=== PATIENT | female | born 1960 | race Caucasian/White ===

== ENCOUNTER → 2017-09-13 11:20 | Outpatient (CLI) | payer OTHER, SELFPAY ==
[2017-09-13 13:51] LABS: Calcium,Total 8.9 mg/dL (8.5-10.1)
[2017-09-14 12:22] LABS: Vitamin D,25 Hydroxy 23.8 ng/mL (29.95-100.01)
== END ==
PROVIDERS: Visit Provider Obstetrics & Gynecology
DX: M85.80 Other specified disorders of bone density and structure, unspecified site (principal)
CPT/HCPCS: 36415; 82306; 82310

== ENCOUNTER → 2017-09-14 09:29 | Outpatient (CLI) | payer OTHER, SELFPAY ==
--- NOTE | 2017-09-14 09:40 | RAD_ITS ---
STUDY: X-RAY - LUMBAR SPINE REASON FOR EXAM: Female, 57 years old. Low back pain. Left lower extremity pain. TECHNIQUE: 5 view(s) of the lumbar spine were obtained including oblique views. COMPARISON: None FINDINGS: Normal lumbar lordosis. There is no substantial scoliosis. There is a normal alignment of the vertebrae. Normal vertebral bodies and endplates. Normal disc space heights. The soft tissue structures are unremarkable. RAD/L/S Spine Min 4 Views IMPRESSION: Normal x-ray examination of the lumbar spine. Electronically Signed: Angelo Peacock MD at 15:40 EDT Tel [phone], Service support ,
== END ==
PROVIDERS: Family Provider Family Medicine; PCP Family Medicine; Visit Provider Family Medicine
DX: M54.9 Dorsalgia, unspecified (principal)
CPT/HCPCS: 72110

== ENCOUNTER → 2017-10-08 09:58 | Outpatient (CLI) | payer OTHER, SELFPAY ==
[2017-10-08 12:27] LABS: Vitamin D,25 Hydroxy 24.5 ng/mL (29.95-100.01)
[2017-10-08 12:31] LABS: Anion Gap 7 (5-15); BUN 18 mg/dL (7-18); BUN/Creat Ratio 27.4 RATIO (10-20); Calcium,Total 8.5 mg/dL (8.5-10.1); Chloride 104 mmol/L (98-107); Cholesterol 180 mg/dL (200); Creatinine, Serum 0.66 mg/dL (0.55-1.02); EST Glomerular Filtration Rate 98 mL/min (>60); Est Glom Filt Rate - Afr Amer 119 mL/min (>60); Glucose 95 mg/dL (74-106); High Density Lipoprotein 83 mg/dL; Potassium 3.9 mmol/L (3.5-5.1); Sodium Level 139 mmol/L (136-145); Thyroid Stim Hormone (TSH) 1.04 uIU/mL (0.358-3.74); Triglycerides 62 mg/dL; Very Low Density Lipoprotein 12 mg/dL (5-40)
== END ==
PROVIDERS: Family Provider Family Medicine; PCP Family Medicine; Visit Provider Family Medicine
DX: Z00.00 Encounter for general adult medical examination without abnormal findings (principal)
CPT/HCPCS: 36415; 80048; 80061; 82306; 84443

== ENCOUNTER → 2018-03-22 09:07 | Outpatient (CLI) | payer OTHER, SELFPAY ==
[2018-03-22 10:14] LABS: Absolute Lymphocyte Count 1.59 X10^3/ul (0.83-4.51); Absolute Neutrophil Count 2.5 X10^3/uL (2.0-7.7); Basophil# 0.02 X10^3/uL; Basophil% 0.4 % (0-1); Eosinophil# 0.12 X10^3/uL; Eosinophils% 2.5 % (0-5); Hematocrit 42.3 % (37-47); Lymphocyte # 1.59 X10^3/ul (4.0); Lymphocyte % 33.8 % (19-41); Mean Corp Hgb Conc 33.1 g/gl (32-36); Mean Corpuscular Hgb 33.4 pg (27.0-32.0); Mean Platelet Vol. 9.9 fl (6.2-12.0); Monocyte# 0.45 X10^3/uL; Monocyte% 9.6 % (0-10); Neutrophil # 2.52 X10^3/uL (2.7-7.7); Neutrophil % 53.5 % (47-70); POSITIVE COUNT NO; POSITIVE DIFFERENTIAL NO; POSITIVE MORPHOLOGY NO; Platelet Count 245 K/mm3 (150-450); RBC Distribution Width CV 13.2 % (11.6-14.6); RBC Distribution Width SD 48.7 fl (35.1-43.9); Red Blood Count 4.19 M/mm3 (4.2-5.4); White Blood Count 4.7 K/mm3 (4.4-11.0)
[2018-03-22 10:39] LABS: Anion Gap 6 (5-15); BUN 18 mg/dL (7-18); BUN/Creat Ratio 25.2 RATIO (10-20); Chloride 106 mmol/L (98-107); Creatinine, Serum 0.72 mg/dL (0.55-1.02); EST Glomerular Filtration Rate 89 mL/min (>60); Est Glom Filt Rate - Afr Amer 107 mL/min (>60); Glucose 88 mg/dL (74-106); Potassium 4.2 mmol/L (3.5-5.1); Sodium Level 141 mmol/L (136-145); Thyroid Stim Hormone (TSH) 0.92 uIU/mL (0.358-3.74)
== END ==
PROVIDERS: Family Provider Family Medicine; PCP Family Medicine; Visit Provider Family Medicine
DX: R07.89 Other chest pain (principal)
CPT/HCPCS: 36415; 80048; 84443; 85025

== ENCOUNTER → 2018-03-28 06:13 | Outpatient (CLI) | payer OTHER, SELFPAY ==
--- NOTE | 2018-03-28 10:16 | STRESSREP_ITS ---
Stress Test Report Date: 03/28/2018 Procedure: Exercise tolerance test/stress nuclear imaging study Indications: Chest pain Consent: Per the patient Procedure: The patient exercised on a Iggy protocol for 10 minutes completing Stage III and 1 minute of Stage IV achieving a peak heart rate of 157 beats per minute (97% predicted maximal heart rate) with peak blood pressure of 142/68 mmHg and a peak MET capacity of 11 METS. The baseline ECG demonstrated normal sinus rhythm. The peak exercise ECG demonstrated no obvious ECG changes. There were no cardiac dysrhythmias pretest, during exercise exercise, or recovery. The functional capacity was considered a good. The patient had no complaint of chest discomfort during exercise and recovery. The examination was discontinued secondary to dyspnea. Impression: 1. Technically adequate (present predicted maximal heart rate greater than 85%) exercise tolerance test 2. Peak exercise ECG with no obvious ECG changes 3. Nuclear images pending/reported separately Myocardial perfusion imaging study: Technique: The patient was injected with 11.3 mci of technetium 99 M Cardiolite and subsequently rest SPECT Cardiolite nuclear imaging was obtained in the horizontal long , vertical long, and short axis views. The patient exercised on a Iggy protocol for 10 minutes completing Stage III and 1 minute of Stage IV achieving a peak heart rate of 157 beats per minute (97% predicted maximal heart rate) with a peak blood pressure of 142/68 mmHg and a peak MET capacity of 11 METS. The patient was injected with 32.9 mci of technetium 99 M Cardiolite and subsequently stress SPECT Cardiolite nuclear imaging was obtained in the horizontal long, vertical long, and short axis views. A gated Cardiolite image was obtained at peak stress. Interpretation: Rest and stress SPECT Cardiolite nuclear imaging demonstrates at rest areas of extra cardiac/gastrointestinal tracer uptake. This appears to be less prominent following stress. Otherwise there appears to be relative uniform tracer uptake and myocardial perfusion appearing within normal limits. There is end systolic thickening in writing. The gated Cardiolite study demonstrates myocardial thickening and inward wall motion. The reported LVEF is 85%. Impression: 1. Rest and stress SPECT Cardiolite nuclear imaging demonstrate relatively unifo rm tracer uptake and myocardial perfusion appearing within normal limits. 2. The gated Cardiolite study reports an LVEF of 85%. This note was generated using a voice recognition system and there may be incorrect words, spelling or punctuation that were not noted when reviewing the office note prior to saving.
--- OUTSIDE RECORDS SUMMARY | 2018-05-14 00:14 | XMS RPT_ITS ---
:1960 External Reference #:[id number] Author Organization OH[facility] Care Team Providers Name Role Phone Luis Alberto Reyes Attending Unavailable Luis Alberto Reyes Referring Unavailable Luis Alberto Reyes Primary Care Unavailable Leatha Sandhu Attending Unavailable Leatha Sandhu Referring Unavailable Luis Alberto Reyes Primary Care Unavailable Luis lAberto Srinivasan Attending Unavailable Reyes, Luis Alberto Referring Unavailable Leatha Sandhu Attending Unavailable Reyes, Luis Alberto Attending Unavailable Reyes, Luis Alberto Referring Unavailable Reyes, Luis Alberto Primary Care Unavailable Reyes, Luis Alberto Attending Unavailable Reyes, Luis Alberto Primary Care Unavailable Reyes, Luis Alberto Attending Unavailable Reyes, Luis Alberto Primary Care Unavailable PROBLEMS PROBLEMS DATE TYPE CONDITION / CODE ATTENDING STATUS SOURCE 04/19/2018 Unknown R07.89 - Other Luis Alberto Srinivasan Active [place] chest pain / Community R07.89(ICD-10) Hospital Repository 10/08/2017 Unknown Z00.00 - Luis Alberto Reyes Active [place] Encounter for [facility] medical Repository examination without abnormal findings / Z00.00(ICD-10) 09/14/2017 Unknown M54.9 - ReyesLuis Alberto pulido Active [place] Dorsalgia, Community unspecified / Hospital M54.9(ICD-10) Repository PROCEDURES PROCEDURES No Procedure Records FoundRESULTS RESULTS SCREENING MAMM (CAD), Observed: 03/29/2018 Status: F Source: [place] BIL 6:57 AM [facility] REPOSITORY [facility] Imaging Services [address] [place] [address] SCREENING MAMM (CAD), BILAT MR#: [id number] Acct: [id number] Name: LISA BERTRAND Rep #: [id number] : 1960 F 57 From: Angelo Peacock MD PCP: Luis Alberto Reyes MD Status: REG CLI Study: SCREENING MAMM (CAD), BILAT Date of Exam: 03/29/18 Exam# [id number] Ordering Dr: Leatha Sandhu MD MAMMOGRAPHY - BILATERAL SCREENING REASON FOR EXAM: Female, 57 years old. Routine annual screening examination. PERTINENT HISTORY: Aunt with breast cancer. TECHNIQUE: Digital bilateral breast he (3D mammographic acquisition) in the CC and MLO projections. 2-D mediolateral oblique (MLO) and craniocaudad (CC) views of both breasts were obtained. CAD: Full Field Digital Mammography with Computer Added Detection was performed. COMPARISON: Comparison is made with prior examination dated February 28, 2017 and February 21, 2016. FINDINGS: Breast Composition: The breasts are heterogeneously dense, which may obscure small masses. There are no dominant masses or suspicious calcifications. No other significant abnormalities are identified. There has been no significant change since the prior study. BI/SCREENING MAMM (CAD), BILAT IMPRESSION: Stable bilateral screening mammogram. Yearly follow-up mammogram recommended. (A) ASSESSMENT CATEGORY: BIRADS Category 1: Negative. A letter regarding these results will be sent to the patient by the facility within 30 days. Approximately 10% of breast cancers are not detected by mammography. A normal mammogram should not delay biopsy of a clinically suspicious abnormality. [id number] Electronically Signed: Angelo Peacock MD at 8:31 EST Tel [phone], Service support , CC: Leatha Sandhu MD; Luis Alberto Reyes MD Events Specialist: Signed STRESS REPORT Observed: 03/28/2018 Status: F Source: [place] 10:16 AM [facility] REPOSITORY [facility] Cardiovascular Services [address] [place] [address] MR#: [id number] Acct: [id number] Name: LISA BERTRAND Rep #: [id number] : 1960 57 From: Luis Alberto Srinivasan MD Primary Care: Luis Alberto Reyes MD Status: REG CLI Ordering Dr: Sex: F C Stress Test Report Date: 03/28/2018 Procedure: Exercise tolerance test/stress nuclear imaging study Indications: Chest pain Consent: Per the patient Procedure: The patient exercised on a Iggy protocol for 10 minutes completing Stage III and 1 minute of Stage IV achieving a peak heart rate of 157 beats per minute (97% predicted maximal heart rate) with peak blood pressure of 142/68 mmHg and a peak MET capacity of 11 METS. The baseline ECG demonstrated normal sinus rhythm. The peak exercise ECG demonstrated no obvious ECG changes. There were no cardiac dysrhythmias pretest, during exercise exercise, or recovery. The functional capacity was considered a good. The patient had no complaint of chest discomfort during exercise and recovery. The examination was discontinued secondary to dyspnea. Impression: 1. Technically adequate (present predicted maximal heart rate greater than 85%) exercise tolerance test 2. Peak exercise ECG with no obvious ECG changes 3. Nuclear images pending/reported separately Myocardial perfusion imaging study: Technique: The patient was injected with 11.3 mci of technetium 99 M Cardiolite and subsequently rest SPECT Cardiolite nuclear imaging was obtained in the horizontal long , vertical long, and short axis views. The patient exercised on a Iggy protocol for 10 minutes completing Stage III and 1 minute of Stage IV achieving a peak heart rate of 157 beats per minute (97% predicted maximal heart rate) with a peak blood pressure of 142/68 mmHg and a peak MET capacity of 11 METS. The patient was injected with 32.9 mci of technetium 99 M Cardiolite and subsequently stress SPECT Cardiolite nuclear imaging was obtained in the horizontal long, vertical long, and short axis views. A gated Cardiolite image was obtained at peak stress. Interpretation: Rest and stress SPECT Cardiolite nuclear imaging demonstrates at rest areas of extra cardiac/gastrointestinal tracer uptake. This appears to be less prominent following stress. Otherwise there appears to be relative uniform tracer uptake and myocardial perfusion appearing within normal limits. There is end systolic thickening in writing. The gated Cardiolite study demonstrates myocardial thickening and inward wall motion. The reported LVEF is 85%. Impression: 1. Rest and stress SPECT Cardiolite nuclear imaging demonstrate relatively uniform tracer uptake and myocardial perfusion appearing within normal limits. 2. The gated Cardiolite study reports an LVEF of 85%. This note was generated using a voice recognition system and there may be incorrect words, spelling or punctuation that were not noted when reviewing the office note prior to saving. 03/28/18 1016 <Electronically signed by Luis Alberto Srinivasan MD> Date Luis Alberto Srinivasan MD CC: Luis Alberto Reyes MD Date Dictated: 03/28/18 1009 Date Transcribed: 03/28/18 100 Events Specialist: PM Signed CBC W/DIFF, AUTOMATED Collected: 03/22/2018 Status: F Source: [place] 9:07 AM [facility] REPOSITORY TYPE CODE TESTS RESULT OUT OF RANGE REFERENCE UNITS LAB L100.1000 4.4-11.0 K/mm3 Normal WBC 4.7 LAB L100.1200 4.2-5.4 M/mm3 Low RBC 4.19 LAB L100.1300 12.0-15.0 g/dl Normal HGB 14.0 LAB L100.1400 37-47 % Normal HCT 42.3 LAB L100.1500 81-99 fL High MCV 101.0 LAB L100.1600 27.0-32.0 pg High MCH 33.4 LAB L100.1700 32-36 g/gl Normal MCHC 33.1 LAB L100.1810 11.6-14.6 % Normal RDW CV 13.2 LAB L100.1820 35.1-43.9 fl High RDW SD 48.7 LAB L100.1900 150-450 K/mm3 Normal PLT 245 LAB L100.2000 6.2-12.0 fl Normal MPV 9.9 LAB L100.2100 47-70 % Normal NEUT% 53.5 LAB L100.2200 19-41 % Normal LY% 33.8 LAB L100.2300 0-10 % Normal MONO% 9.6 LAB L100.2400 0-5 % Normal EO% 2.5 LAB L100.2500 0-1 % Normal BASO% 0.4 LAB L100.2550 0.0-0.9 % Normal IM GRAN % 0.200 Result Comment: IG% - Immature Granulocytes (promyelocytes, myelocytes and metamyelocytes) > 1% indicates that a LEFT SHIFT is Present. LAB L100.2620 2.0-7.7 X10 3/uL Normal Absolute Neut 2.5 LAB L100.2720 0.83-4.51 X10 3/ul Normal Absolute Lymph 1.59 Performed By: #### L100.0100 #### [facility] [address] [place], [place], [address] BASIC METABOLIC Collected: 03/22/2018 Status: F Source: [place] PROFILE (BMP) 9:07 AM [facility] REPOSITORY TYPE CODE TESTS RESULT OUT OF RANGE REFERENCE UNITS LAB L501.0100 74-106 mg/dL Normal GLU 88 Result Comment: Please note revised GLUCOSE reference range effective 2017. LAB L501.1000 7-18 mg/dL Normal BUN 18 LAB L501.1100 0.55-1.02 mg/dL Normal CREAT,SERUM 0.72 Result Comment: The validity of the calculated GFR AND GFRAA in patients over 70 years has not been determined. Clinical correlation is essential. LAB L501.1110 >60 mL/min Normal EST GFR 89 Result Comment: Non- GFR Calc LAB L501.1115 >60 mL/min Normal EST GFR - AA 107 Result Comment: GFR Calc LAB L501.1300 10-20 RATIO High BUN/CRE 25.2 LAB L501.2200 8.5-10.1 mg/dL CA Normal 9.0 LAB L501.5300 136-145 mmol/L NA Normal 141 LAB L501.5600 3.5-5.1 mmol/L K Normal 4.2 LAB L501.5900 98-107 mmol/L CL Normal 106 LAB L501.6100 21.0-32.0 mmol/L Normal CO2 29.0 LAB L501.6200 5-15 Normal GAP 6 Performed By: #### L500.2500, L501.9520 #### [facility] [address] [place], [place], [address] THYROID STIM HORMONE Collected: 03/22/2018 Status: F Source: [place] (TSH) 9:07 AM [facility] REPOSITORY TYPE CODE TESTS RESULT OUT OF RANGE REFERENCE UNITS LAB L501.9520 0.358-3.74 uIU/mL Normal TSH 0.92 Performed By: #### L500.2500, L501.9520 #### [facility] [address] [place], [address] VITAMIN D,25 HYDROXY Collected: 10/08/2017 Status: F Source: [place] 9:59 AM [facility] REPOSITORY TYPE CODE TESTS RESULT OUT OF REFERENCE UNITS RANGE LAB L506.1000 29.95-100.01 ng/mL Low Vitamin D 24.5 25-OH Result Comment: Vitamin D 25(OH) Status Range Deficiency <20 ng/mL (50nmol/L) Insuffciency 20 - 30 ng/mL (50 - 75 nmol/L) Sufficiency 30 - 100 ng/mL (75 - 250 nmol/L) Toxicity >100 ng/mL (>250 nmol/L) Performed By: #### L506.1000 #### [facility] [address] [place], [place], [id number] BASIC METABOLIC Collected: 10/08/2017 Status: F Source: [place] PROFILE (BMP) 9:59 AM [facility] REPOSITORY TYPE CODE TESTS RESULT OUT OF RANGE REFERENCE UNITS LAB L501.0100 74-106 mg/dL Normal GLU 95 Result Comment: Please note revised GLUCOSE reference range effective 2017. LAB L501.1000 7-18 mg/dL Normal BUN 18 LAB L501.1100 0.55-1.02 mg/dL Normal CREAT,SERUM 0.66 Result Comment: The validity of the calculated GFR AND GFRAA in patients over 70 years has not been determined. Clinical correlation is essential. LAB L501.1110 >60 mL/min Normal EST GFR 98 Result Comment: Non- GFR Calc LAB L501.1115 >60 mL/min Normal EST GFR - AA 119 Result Comment: GFR Calc LAB L501.1300 10-20 RATIO High BUN/CRE 27.4 LAB L501.2200 8.5-10.1 mg/dL CA Normal 8.5 LAB L501.5300 136-145 mmol/L NA Normal 139 LAB L501.5600 3.5-5.1 mmol/L K Normal 3.9 LAB L501.5900 98-107 mmol/L CL Normal 104 LAB L501.6100 21.0-32.0 mmol/L Normal CO2 28.0 LAB L501.6200 5-15 Normal GAP 7 Performed By: #### L500.2500, L500.4100, L501.9520 #### [facility] [address] [place], [place], [address] LIPID PROFILE Collected: 10/08/2017 Status: F Source: [place] 9:59 AM [facility] REPOSITORY TYPE CODE TESTS RESULT OUT OF RANGE REFERENCE UNITS LAB L501.4900 200 mg/dL Normal CHOL 180 Result Comment: <200 mg/dL Desirable 200-240 mg/dL Borderline >240 mg/dL High Risk LAB L501.5000 mg/dL Normal TRIG 62 Result Comment: The drugs N-Acetylcysteine and Metamizole may falsely depress this assay. Serum Triglycerides Reference Interval Normal <150 mg/dL Borderline high 150 - 199 mg/dL High 200 - 499 mg/dL Very High > or = 500 mg/dL LAB L501.6400 mg/dL Normal HDL 83 Result Comment: The drugs N-Acetylcysteine and Metamizole may falsely depress this assay. Reference Range HDL <40 mg/dL Low HDL Cholesterol HDL >or= 60 mg/dL High HDL Cholesterol LAB L501.6500 0-130 mg/dL Normal LDL 85 LAB L501.6600 5-40 mg/dL Normal VLDL 12 Performed By: #### L500.2500, L500.4100, L501.9520 #### [facility] [address] [place], [address] THYROID STIM HORMONE Collected: 10/08/2017 Status: F Source: [place] (TSH) 9:59 AM [facility] REPOSITORY TYPE CODE TESTS RESULT OUT OF RANGE REFERENCE UNITS LAB L501.9520 0.358-3.74 uIU/mL Normal TSH 1.04 Performed By: #### L500.2500, L500.4100, L501.9520 #### [facility] [address] [place], [address] L/S SPINE MIN 4 Observed: 09/14/2017 Status: F Source: [place] VIEWS 9:38 AM [facility] REPOSITORY [facility] Imaging Services [address] [place] [address] L/S Spine Min 4 Views MR#: [id number] Acct: [id number] Name: LISA BERTRAND Rep #: [id number] : 1960 F 57 From: Angelo Peacock MD PCP: Luis Alberto Reyes MD Status: REG CLI Study: L/S Spine Min 4 Views Date of Exam: 09/14/17 Exam# [id number] Ordering Dr: Luis Alberto Reyes MD STUDY: X-RAY - LUMBAR SPINE REASON FOR EXAM: Female, 57 years old. Low back pain. Left lower extremity pain. TECHNIQUE: 5 view(s) of the lumbar spine were obtained including oblique views. COMPARISON: None FINDINGS: Normal lumbar lordosis. There is no substantial scoliosis. There is a normal alignment of the vertebrae. Normal vertebral bodies and endplates. Normal disc space heights. The soft tissue structures are unremarkable. RAD/L/S Spine Min 4 Views IMPRESSION: Normal x-ray examination of the lumbar spine. Electronically Signed: Angelo Peacock MD at 15:40 EDT Tel [phone], Service support , CC: Luis Alberto Reyes MD Events Specialist: Signed CALCIUM,TOTAL Collected: 09/13/2017 Status: F Source: [place] 11:23 AM [facility] REPOSITORY TYPE CODE TESTS RESULT OUT OF RANGE REFERENCE UNITS LAB L501.2200 8.5-10.1 mg/dL Normal CA 8.9 Performed By: #### L501.2200 #### [facility] [address] [place], [place], [address] VITAMIN D,25 HYDROXY Collected: 09/13/2017 Status: F Source: [place] 11:23 AM [facility] REPOSITORY TYPE CODE TESTS RESULT OUT OF REFERENCE UNITS RANGE LAB L506.1000 29.95-100.01 ng/mL Low Vitamin D 23.8 25-OH Result Comment: Vitamin D 25(OH) Status Range Deficiency <20 ng/mL (50nmol/L) Insuffciency 20 - 30 ng/mL (50 - 75 nmol/L) Sufficiency 30 - 100 ng/mL (75 - 250 nmol/L) Toxicity >100 ng/mL (>250 nmol/L) Performed By: #### L506.1000 #### [facility] [address] [place], [address] ALLERGIES ALLERGIES No Allergies Records FoundENCOUNTERS ENCOUNTERS ADMIT/DISCHARGE ACCOUNT ADMITTING ENCOUNTER LOCATION SOURCE NUMBER CLASS 03/29/2018 [id number] Ambulatory [place] [facility] ing:[facility] Repository 03/28/2018 [id number] Ambulatory [place] [facility] ing:[facility] Repository 03/28/2018 [id number] Ambulatory BMSBuilding:W [place] 1 [facility] Repository 03/22/2018 [id number] Ambulatory [place] [facility] ing:[facility] Repository 10/08/2017 [id number] Ambulatory [place] [facility] ing:[facility] Repository 09/14/2017 [id number] Ambulatory [place] [facility] ing:[facility]TRAD Repository 09/13/2017 [id number] Ambulatory [place] [facility] ing:[facility]BLAB Repository PAYERS PAYERS ENCOUNTER GUARANTOR PAYER SUBSCRIBER SOURCE 03/29/2018 MARTHA Wasserman Primary Insurance[facility]AL [facility] [address], Number: [id number] County General Hospital [address]Xct: [id number] Repository Date:2032-88-78[address] () [id number], [place] [address]HN: 03/29/2018 Secondary NOT GIVENUNK [place] Insurance:SELF PAY [facility] Number: Effective Repository Date:2018-02-12 03/28/2018 MARTHA Wasserman Primary Insurance:CONSTANTINO CRYSTAL [facility] [address], Number: [id number] County General Hospital [address]Brg: [id number] Repository Date:2727-93-75NM [address] () [id number], [place] [address]HP: 03/28/2018 Secondary NOT GIVENUNK [place] Insurance:SELF PAY [facility] Number: Effective Repository Date:2018-03-26 03/28/2018 MARTHA Wasserman Primary Insurance:[facility]INO [facility] [address], Number: [id number] County General Hospital [address]Qlm: [id number] Repository Date:4194-64-23SK [address] () [id number], [place] [address]SU: 03/28/2018 Secondary NOT GIVENUNK [place] Insurance:SELF PAY [facility] Number: Effective Repository Date:2018-03-28 03/22/2018 MARTHA Wasserman Primary Insurance:CONSTANTINO LISA L [place] [id number] MANDIE CRYSTAL [facility] BACHUSDOB: [address], Number: [id number] County General Hospital [address]Kfx: [id number] Repository Date:0898-19-07DO [address] () [id number], [place] [address]AG: 03/22/2018 Secondary NOT GIVENUNK [place] Insurance:SELF PAY [facility] Number: Effective Repository Date:2018-03-22 10/08/2017 MARTHA Wasserman Primary Insurance:CONSTANTINO LISA L [place] [id number] B[place]ILLA [facility] BACHUSDOB: [address], Number: [id number] County General Hospital [address]Fyi: [id number] Repository Date:4789-36-91IJ [address] () [place], [place] [address]XQ: 10/08/2017 Secondary NOT GIVENUNK [place] Insurance:SELF PAY [facility] Number: Effective Repository Date:2017-10-08 09/14/2017 MARTHA Wasserman Primary Insurance:CONSTANTINO LISA L [place] [id number] B[place]ILLA [facility] BACHUSDOB: [address], Number: [id number] County General Hospital [address]Mpy: [id number] Repository Date:0202-35-36KQ [address] () [id number], [place] [address]XG: 09/14/2017 Secondary NOT GIVENUNK [place] Insurance:SELF PAY [facility] Number: Effective Repository Date:2017-09-14 09/13/2017 MARTHA Wasserman Primary Insurance:CONSTANTINO Ramirez [id number] MANDIE CRYSTAL [facility] BACHUSDOB: [facility] [address], Number: [id number] County General Hospital [address]Pah: [id number] Repository Date:3672-70-23UF [address]OX (GX) [id number], [place] [address]CA: 09/13/2017 Secondary NOT GIVENCHRISTOPHER Ramirez Insurance:SELF PAY [facility] Number: Effective Repository Date:2017-09-13
== END ==
PROVIDERS: Family Provider Family Medicine; PCP Family Medicine; Referring Provider Family Medicine; Visit Provider Family Medicine
DX: R07.89 Other chest pain (principal)
CPT/HCPCS: 78452; 93017; A9500; A4216

== ENCOUNTER → 2018-03-29 07:00 | Outpatient (CLI) | payer OTHER, SELFPAY ==
--- NOTE | 2018-03-29 06:57 | BI_ITS ---
MAMMOGRAPHY - BILATERAL SCREENING REASON FOR EXAM: Female, 57 years old. Routine annual screening examination. PERTINENT HISTORY: Aunt with breast cancer. TECHNIQUE: Digital bilateral breast eh (3D mammographic acquisition) in the CC and MLO projections. 2-D mediolateral oblique (MLO) and craniocaudad (CC) views of both breasts were obtained. CAD: Full Field Digital Mammography with Computer Added Detection was performed. COMPARISON: Comparison is made with prior examination dated February 28, 2017 and February 21, 2016. FINDINGS: Breast Composition: The breasts are heterogeneously dense, which may obscure small masses. There are no dominant masses or suspicious calcifications. No other significant abnormalities are identified. There has been no significant change since the prior study. BI/SCREENING MAMM (CAD), BILAT IMPRESSION: Stable bilateral screening mammogram. Yearly follow-up mammogram recommended. (A) ASSESSMENT CATEGORY: BIRADS Category 1: Negative. A letter regarding these results will be sent to the patient by the facility within 30 days. Approximately 10% of breast cancers are not detected by mammography. A normal mammogram should not delay biopsy of a clinically suspicious abnormality. [id number] Electronically Signed: Angelo Peacock MD at 8:31 EST Tel [phone], Service support ,
--- OUTSIDE RECORDS SUMMARY | 2018-05-14 19:08 | XMS RPT_ITS ---
:1960 External Reference #:[id number] Author Organization OHIP Care Team Providers Name Role Phone Luis Alberto Reyes Attending Unavailable Luis Alberto Reyes Referring Unavailable Luis Alberto Reyes Primary Care Unavailable Leatha Sandhu Attending Unavailable Leatha Sandhu Referring Unavailable Luis Alberto Reyes Primary Care Unavailable Leatha Sandhu Attending Unavailable Reyes, Luis Alberto Attending Unavailable Reyes, Luis Alberto Referring Unavailable Reyes, Luis Alberto Primary Care Unavailable Reyes, Luis Alberto Attending Unavailable Reyes, Luis Alberto Primary Care Unavailable [place], Luis Alberto Attending Unavailable Reyes, Luis Alberto Referring Unavailable Reyes, Luis Alberto Attending Unavailable Reyes, Luis Alberto Primary Care Unavailable PROBLEMS PROBLEMS DATE TYPE CONDITION / CODE ATTENDING STATUS SOURCE 04/19/2018 Unknown R07.89 - Other Luis Alberto Srinivasan Active [place] chest pain / Community R07.89(ICD-10) Hospital Repository 10/08/2017 Unknown Z00.00 - ReyesLuis Alberto pulido Active [place] Encounter for [facility] medical Repository examination without abnormal findings / Z00.00(ICD-10) 09/14/2017 Unknown M54.9 - ReyesLuis Alberto pulido Active [place] Dorsalgia, Community unspecified / Hospital M54.9(ICD-10) Repository PROCEDURES PROCEDURES No Procedure Records FoundRESULTS RESULTS SCREENING MAMM (CAD), Observed: 03/29/2018 Status: F Source: [place] BIL 6:57 AM [facility] HOSPITAL REPOSITORY [facility] Imaging Services [address] [place] [address] SCREENING MAMM (CAD), BILAT MR#: [id number] Acct: [id number] Name: LISA BERTRAND Rep #: [id number] : 1960 F 57 From: Angelo Peacock MD PCP: Luis Alberto Reyes MD Status: REG CLI Study: SCREENING MAMM (CAD), BILAT Date of Exam: 03/29/18 Exam# [id number] Ordering Dr: Leatha Sandhu MD MAMMOGRAPHY - [...] delay biopsy of a clinically suspicious abnormality. [id number] Electronically Signed: Angelo Peacock MD at 8:31 EST Tel [phone], Service support , CC: Leatha Sandhu MD; Luis Alberto Reyes MD Fast Food Cashier: Signed STRESS REPORT Observed: 03/28/2018 Status: F Source: [place] 10:16 AM [facility] Cardiovascular Services [address] [place] [address] MR#: [id number] Acct: [id number] Name: LISA BERTRAND Rep #: [id number] : 1960 57 From: Luis Alberto Srinivasan [...] Dictated: 03/28/18 1009 Date Transcribed: 03/28/18 100 Fast Food Cashier: PM Signed CBC W/DIFF, AUTOMATED Collected: 03/22/2018 Status: F Source: [place] 9:07 AM [facility] TYPE CODE TESTS RESULT OUT OF [...] Lymph 1.59 Performed By: #### L100.0100 #### [facility] [address] [place], [place], [address] BASIC METABOLIC Collected: 03/22/2018 Status: F Source: [place] PROFILE (BMP) 9:07 AM [facility] TYPE CODE TESTS RESULT OUT OF [...] 6 Performed By: #### L500.2500, L501.9520 #### [facility] [address] [place], [place], [address] THYROID STIM HORMONE Collected: 03/22/2018 Status: F Source: [place] (TSH) 9:07 AM [facility] TYPE CODE TESTS RESULT OUT OF RANGE REFERENCE UNITS LAB L501.9520 0.358-3.74 uIU/mL Normal TSH 0.92 Performed By: #### L500.2500, L501.9520 #### [facility] [address] [place], [address] VITAMIN D,25 HYDROXY Collected: 10/08/2017 Status: F Source: [place] 9:59 AM [facility] TYPE CODE TESTS RESULT OUT OF REFERENCE UNITS RANGE LAB L506.1000 29.95-100.01 ng/mL Low Vitamin D 24.5 25-OH Result Comment: Vitamin D 25(OH) Status Range Deficiency <20 ng/mL (50nmol/L) Insuffciency 20 - 30 ng/mL (50 - 75 nmol/L) Sufficiency 30 - 100 ng/mL (75 - 250 nmol/L) Toxicity >100 ng/mL (>250 nmol/L) Performed By: #### L506.1000 #### [facility] [address] [place], [place], [id number] BASIC METABOLIC Collected: 10/08/2017 Status: F Source: [place] PROFILE (BMP) 9:59 AM [facility] TYPE CODE TESTS RESULT OUT OF [...] Performed By: #### L500.2500, L500.4100, L501.9520 #### [facility] [address] [place], [place], [address] LIPID PROFILE Collected: 10/08/2017 Status: F Source: [place] 9:59 AM [facility] TYPE CODE TESTS RESULT OUT OF [...] Performed By: #### L500.2500, L500.4100, L501.9520 #### [facility] [address] [facility] [place], [address] THYROID STIM HORMONE Collected: 10/08/2017 Status: F Source: [place] (TSH) 9:59 AM [facility] TYPE CODE TESTS RESULT OUT OF RANGE REFERENCE UNITS LAB L501.9520 0.358-3.74 uIU/mL Normal TSH 1.04 Performed By: #### L500.2500, L500.4100, L501.9520 #### [facility] [address] [facility] [place], [address] L/S SPINE MIN 4 Observed: 09/14/2017 Status: F Source: [place] VIEWS 9:38 AM [facility] Imaging Services [address] [place] [address] L/S Spine Min 4 Views MR#: [id number] Acct: [id number] Name: LISA BERTRAND Rep #: [id number] : 1960 F 57 From: Angelo Peacock MD PCP: Luis Alberto Reyes MD Status: REG CLI Study: L/S Spine Min 4 Views Date of Exam: 09/14/17 Exam# [id number] Ordering Dr: Luis Alberto Reyes MD STUDY: [...] Angelo Peacock MD at 15:40 EDT Tel [phone], Service support , CC: Luis Alberto Reyes MD Fast Food Cashier: Signed CALCIUM,TOTAL Collected: 09/13/2017 Status: F Source: [place] 11:23 AM [facility] TYPE CODE TESTS RESULT OUT OF RANGE REFERENCE UNITS LAB L501.2200 8.5-10.1 mg/dL Normal CA 8.9 Performed By: #### L501.2200 #### [facility] [address] [facility] [place], [place], [address] VITAMIN D,25 HYDROXY Collected: 09/13/2017 Status: F Source: [place] 11:23 AM [facility] TYPE CODE TESTS RESULT OUT OF REFERENCE UNITS RANGE LAB L506.1000 29.95-100.01 ng/mL Low Vitamin D 23.8 25-OH Result Comment: Vitamin D 25(OH) Status Range Deficiency <20 ng/mL (50nmol/L) Insuffciency 20 - 30 ng/mL (50 - 75 nmol/L) Sufficiency 30 - 100 ng/mL (75 - 250 nmol/L) Toxicity >100 ng/mL (>250 nmol/L) Performed By: #### L506.1000 #### [facility] [address] [place], [address] ALLERGIES ALLERGIES No Allergies Records FoundENCOUNTERS ENCOUNTERS ADMIT/DISCHARGE ACCOUNT ADMITTING ENCOUNTER LOCATION SOURCE NUMBER CLASS 03/29/2018 [id number] Ambulatory [place] 4 [facility] ing:OPBI Repository 03/28/2018 [id number] Ambulatory [place] 7 [facility] ing:[facility]S Repository 03/28/2018 [id number] Ambulatory BMSBuilding:W [place] 1 [facility] Repository 03/22/2018 [id number] Ambulatory [place] 4 [facility] ing:MFPLAB Repository 10/08/2017 [id number] Ambulatory [place] 5 [facility] ing:MFPLAB Repository 09/14/2017 [id number] Ambulatory [place] 9 [facility] ing:MTRAD Repository 09/13/2017 [id number] Ambulatory [place] 9 [facility] ing:WOBLAB Repository PAYERS PAYERS ENCOUNTER GUARANTOR PAYER SUBSCRIBER SOURCE 03/29/2018 MARTHA Wasserman Primary Insurance[facility]CONSTANTINO [facility]AL [facility] [address], Number: [id number] [facility] [address]Oyf: [id number] Repository Date:5953-93-00JV [address] () [id number], [place] [address]MQ: 03/29/2018 Secondary NOT GIVENUNK [place] Insurance:SELF PAY [facility] Number: Effective Repository Date:2018-02-12 03/28/2018 MARTHA Wasserman Primary Insurance:CONSTANTINO CRYSTAL [facility] [address], Number: [id number] Medical Center [address]Jpj: [id number] Repository Date:5144-86-62LQ [address] () [id number], [place] [address]SQ: 03/28/2018 Secondary NOT GIVENUNK [place] Insurance:SELF PAY [facility] Number: Effective Repository Date:2018-03-26 03/28/2018 MARTHA Wasserman Primary Insurance:CONSTANTINO CRYSTAL [facility] [address], Number: [id number] Medical Center [address]Ykz: [id number] Repository Date:8030-19-79HC [address] () [id number], [place] [address]JV: 03/28/2018 Secondary NOT GIVENUNK [place] Insurance:SELF PAY [facility] Number: Effective Repository Date:2018-03-28 03/22/2018 MARTHA Wasserman Primary Insurance:CONSTANTINO LISA L [place] [id number] MANDIE CRYSTAL [facility] BACHUSDOB: [address], Number: [id number] Medical Center [address]Yuf: [id number] Repository Date:1711-99-62VH [address] () [id number], [place] [address]ZC: 03/22/2018 Secondary NOT GIVENUNK [place] Insurance:SELF PAY [facility] Number: Effective Repository Date:2018-03-22 10/08/2017 MARTHA Wasserman Primary Insurance:CONSTANTINO LISA L [place] [id number] [place] [facility] BACHUSDOB: [address], Number: [id number] Medical Center [address]Pwg: [id number] Repository Date:4916-55-14TM [address] () [id number], [place] [address]PF: 10/08/2017 Secondary NOT GIVENUNK [place] Insurance:SELF PAY [facility] Number: Effective Repository Date:2017-10-08 09/14/2017 MARTHA Wasserman Primary Insurance:CONSTANTINO LISA L [place] [id number] [place] [facility] BACHUSDOB: [address], Number: [id number] Medical Center [address]Pys: [id number] Repository Date:3825-20-44NX BOX () [id number], [place] [address]VP: 09/14/2017 Secondary NOT GIVENUNK [place] Insurance:SELF PAY [facility] Number: Effective Repository Date:2017-09-14 09/13/2017 MARTHA Wasserman Primary Insurance:CONSTANTINO Ramirez [id number] MANDIE CRYSTAL [facility] BACHUSDOB: [facility] [address], Number: [id number] Medical Center [address]Dex: [id number] Repository Date:6478-37-34QF BOX (GC) [id number], [place] [address]FP: 09/13/2017 Secondary NOT GIVENCHRISTOPHER Ramirez Insurance:SELF PAY [facility] Number: Effective Repository Date:2017-09-13
== END ==
PROVIDERS: Family Provider Family Medicine; PCP Family Medicine; Referring Provider Obstetrics & Gynecology; Visit Provider Obstetrics & Gynecology
DX: Z12.31 Encounter for screening mammogram for malignant neoplasm of breast (principal)
CPT/HCPCS: 77063; 77067

== ENCOUNTER → 2018-05-13 11:22 | Outpatient (CLI) | payer OTHER, SELFPAY ==
[2018-05-13 14:09] LABS: Calcium,Total 8.6 mg/dL (8.5-10.1)
[2018-05-13 14:16] LABS: Vitamin D,25 Hydroxy 28.3 ng/mL (29.95-100.01)
== END ==
PROVIDERS: Visit Provider Obstetrics & Gynecology
DX: M85.9 Disorder of bone density and structure, unspecified (principal)
CPT/HCPCS: 36415; 82306; 82310

== ENCOUNTER → 2018-09-16 | Outpatient (CLI) | payer OTHER, SELFPAY ==
--- NOTE | 2018-09-16 15:39 | RAD_ITS ---
STUDY: X-RAY - RIGHT ELBOW REASON FOR EXAM: Female, 58 years old. Elbow pain for 2 months. TECHNIQUE: 3 view(s) of the elbow. COMPARISON: None. FINDINGS: There is a small olecranon spur. Normal radiocapitellar and ulnotrochlear articulations. The soft tissue structures are unremarkable. RAD/Elbow min 3 Views IMPRESSION: Small olecranon spur with no acute finding. Electronically Signed: Felipe Erazo MD at 17:13 EDT , Service support ,
== END | disposition home or self-care (01) ==
LOC: HPRAD 15:37
PROVIDERS: Referring Provider Orthopaedic Surgery; Visit Provider Orthopaedic Surgery
DX: M25.521 Pain in right elbow (principal)
CPT/HCPCS: 73080

== ENCOUNTER → 2018-11-18 06:10 | Outpatient (CLI) | payer OTHER, SELFPAY ==
[2018-10-14 15:34] VITALS: BMI 24.4
[2018-11-18 07:18] LABS: Absolute Neutrophil Count 2.3 X10^3/uL (2.0-7.7); Basophil# 0.03 X10^3/uL; Basophil% 0.6 % (0-1); Eosinophil# 0.29 X10^3/uL; Hematocrit 42.3 % (37-47); Hemoglobin 14.6 g/dL (12.0-15.0); Mean Corp Hgb Conc 34.5 g/dL (32-36); Mean Corpuscular Hgb 34.8 pg (27.0-32.0); Mean Corpuscular Volume 100.7 fL (81-99); Mean Platelet Vol. 10.1 fl (6.2-12.0); Monocyte% 10.3 % (0-10); NRBC Flagged by Analyzer 0 % (0-5); Neutrophil # 2.32 X10^3/uL (2.7-7.7); Neutrophil % 47.7 % (47-70); Platelet Count 181 K/mm3 (150-450); RBC Distribution Width CV 12.1 % (11.6-14.6); RBC Distribution Width SD 45.1 fl (35.1-43.9); White Blood Count 4.9 K/mm3 (4.4-11.0)
[2018-11-18 07:56] LABS: Anion Gap 4 (5-15); BUN 21 mg/dL (7-18); BUN/Creat Ratio 28.2 RATIO (10-20); Calcium,Total 8.8 mg/dL (8.5-10.1); Chloride 105 mmol/L (98-107); Cholesterol 185 mg/dL (200); Creatinine, Serum 0.74 mg/dL (0.55-1.02); EST Glomerular Filtration Rate 84 mL/min (>60); Est Glom Filt Rate - Afr Amer 102 mL/min (>60); Glucose 92 mg/dL (74-106); High Density Lipoprotein 89 mg/dL; Potassium 3.7 mmol/L (3.5-5.1); Sodium Level 141 mmol/L (136-145); Triglycerides 45 mg/dL; Very Low Density Lipoprotein 9 mg/dL (5-40)
== END ==
PROVIDERS: Family Provider Family Medicine; PCP Family Medicine; Referring Provider Family Medicine; Visit Provider Family Medicine
DX: Z00.00 Encounter for general adult medical examination without abnormal findings (principal)
CPT/HCPCS: 36415; 80048; 80061; 85025

== ENCOUNTER 2018-12-30 11:00 | Outpatient (RCR) | payer OTHER, SELFPAY ==
[2018-12-23 08:02] VITALS: BMI 24.4
--- NOTE | 2018-12-25 14:50 | HP.OTEVAL ---
Patient's Visit Information LISA BERTRAND is a 58 year old F, referred to Occupational Therapy by Francesco Woods DO, with a diagnosis of right lat. ep. Date of Evaluation: 12/25/18 Occupational Therapist: CLAIRE Fernandez/Deondre, CHT - Subjective Subjective: This 58 year old female was seen for Initial OT eval with dx of right lat. ep. pt states symptoms started in August and had one cortisone shot in September, and one first week of dec. 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 pt does have counter force brace she use. pt states she has not used ice . 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 Pt will demo an increase in lateral and tripod pinch by 2# to increase pts independent with opening baggies, containers at PLOF by D/C. Goal:: Pt will report pain no greater than 1/10 with use of affected hand with BADLs and IADLs by d/c. Goal:: Pt will demo understanding of joint protection and ergonomics when performing BADLs and IADLs by d/c - Rehabilitation General Assessment: pt demo with positive symptoms of right lateral epi, weakness of right UE and theatrical scenic designer strength. pain is also factor in performing ADLs and IADLs at IND. level. at this time. PT demonstrates need for skilled OT services 1-2xweek for 3-4 weeks to ensure pt is progressing with and challenged appropriately to increase ROM and strength and decrease pts pain to return pt to PLOF with ADLs and IADLs.- pt given information on lat. eip and handouts on stretch, icing and use of counter force brace. pt demo understanding and agree to POC. Rehabilitation Potential: Good - Anticipated Interventions Anticipated Interventions: A/AAROM/PROM, Strengthening, Triggerpoint Release, Sensory Retraining, Modalities, Orthoses, Joint Protection/Energy Conservation, Ergonomic Education - Visit Plan Frequency: 1-2x /Week Duration: 2-4 Weeks TEXT: Thank you for the opportunity to evaluate your patient. For Medicare and Medicare HMO plans, please review the plan of care and approve it. It will need to be FAXED BACK to us at [phone] for Medicare purposes. Please let me know if there are questions or concerns regarding this plan of care. Physician Signature: Date:
--- NOTE | 2019-04-04 10:08 | HP.OT.NRP ---
HP - Discharge Summary - Patient Information LISA BERTRAND was seen in my office for initial evaluation on 12/25/18. The following Plan of Care was established for this patient: Initial Frequency: 1-2x /Week Initial Duration: 2-4 Weeks Plan: cont with follow up after vac. - Anticipated Interventions Anticipated Interventions: A/AAROM/PROM, Strengthening, Triggerpoint Release, Sensory Retraining, Modalities, Orthoses, Joint Protection/Energy Conservation, Ergonomic Education This patient was last seen in our office 12/30/18. Pertinent comments regarding their Occupational therapy will appear below: Pt was seen for 2 OT visits with cancellation of he last scheduled apt. pt has not returned or rescheduled. Due to time lapse in care pt is D/C At this point I will be discontinuing this patient from occupational therapy. I would be happy to see this patient again in the future if found appropriate by the physician. Thank you! Carmen Cuadra, OTR/L, CHT
== END 2018-12-30 19:00 | disposition home or self-care (01) ==
LOC: OT 11:00
PROVIDERS: Family Provider Family Medicine; PCP Family Medicine; Referring Provider Orthopaedic Surgery; Visit Provider Orthopaedic Surgery
DX: M77.11 Lateral epicondylitis, right elbow (principal)
CPT/HCPCS: 97110; 97140; 97166; 97530

== ENCOUNTER → 2019-03-25 10:54 | Outpatient (CLI) | payer OTHER, SELFPAY ==
[2018-12-23 08:02] VITALS: BMI 24.4
--- NOTE | 2019-03-25 11:00 | BD_ITS ---
STUDY: DUAL ENERGY X-RAY ABSORPTIOMETRY / DXA REASON FOR EXAM: Female, 58 years old. Early menopause. Loss of height. TECHNIQUE: Bone Mineral Density (BMD) measurements of lumbar spine and bilateral hips were obtained. COMPARISON: Comparison is made with prior study dated February 20, 2017. FINDINGS: Lumbar Spine (L1-L4): g/cm2 (0.921) / T-score (-2.2) / Z-score (-0.9) Findings are suggestive of osteopenia with a high fracture risk. Left Femur Total: g/cm2 (0.811) / T-score (-1.6) / Z-score (-0.6) Left Femoral Neck: g/cm2 (0.812) / T-score (-1.6) / Z-score (-0.4) Right Femur Total: g/cm2 (0.838) / T-score (-1.3) / Z-score (-0.4) Right Femoral Neck: g/cm2 (0.822) / T-score (-1.6) / Z-score (-0.3) The T-Scores on the most recent prior examination were: Lumbar Spine (L1-L4): There has been worsening of bone density since the previous examination. Left Femur Total: which represents a worsening of 2.3%. Right Femur Total: which represents an improvement of 4.8%. BD/Dexa Bone Density Study IMPRESSION: The patient is considered osteopenic as outlined below according to World Ahsan Organization (WHO) criteria with a high fracture risk. There has been worsening of bone density since the previous examination. Reference Information: The T-score is the number of standard deviations above or below the standard which is normal for young adults at their peak bone mineral density. The World Health Organization (WHO) interprets the T-scores as follows: Above -1 Normal bone density Between -1 and -2.5 Osteopenia Equal to / or below -2.5 Osteoporosis As a practical clinical guideline, osteopenia may be graded as follows: Mild -1 through -1.5 Moderate -1.6 through -2.0 Severe -2.1 through -2.4 The Z-score is the number of standard deviations above or below age-matched controls. A Z-score of less than -1.5 would be considered abnormal. References: 1. NIH Osteoporosis and Related Bone Diseases http://www.osteo.org 2. International Society for Clinical Densitometry http://www.iscd.org 3. National Osteoporosis Foundation http://www.nof.org Electronically Signed: Angelo Peacock, at 9:39 EST , Service support ,
== END ==
PROVIDERS: Family Provider Family Medicine; PCP Family Medicine; Referring Provider Obstetrics & Gynecology; Visit Provider Obstetrics & Gynecology
DX: M85.80 Other specified disorders of bone density and structure, unspecified site (principal)
CPT/HCPCS: 77080

== ENCOUNTER → 2019-03-31 06:57 | Outpatient (CLI) | payer OTHER, SELFPAY ==
[2018-12-23 08:02] VITALS: BMI 24.4
--- NOTE | 2019-03-31 06:59 | BI_ITS ---
MAMMOGRAPHY - BILATERAL SCREENING REASON FOR EXAM: Female, 58 years old. Routine annual screening examination. PERTINENT HISTORY: Aunt with breast cancer. TECHNIQUE: Digital bilateral breast ray (3D mammographic acquisition) in the CC and MLO projections. 2-D mediolateral oblique (MLO) and craniocaudad (CC) views of both breasts were obtained. CAD: Full Field Digital Mammography with Computer Added Detection was performed. COMPARISON: Comparison is made with prior study dated March 29, 2018 and February 28, 2017. FINDINGS: Breast Composition: There are scattered areas of fibroglandular density. There are no dominant masses or suspicious calcifications. No other significant abnormalities are identified. There has been no significant change since the prior study. BI/SCREEN MAMM (CAD) W/RAY BILAT IMPRESSION: Stable bilateral screening mammogram. Yearly follow-up mammogram recommended. (A) ASSESSMENT CATEGORY: BIRADS Category 1: Negative. A letter regarding these results will be sent to the patient by the facility within 30 days. Approximately 10% of breast cancers are not detected by mammography. A normal mammogram should not delay biopsy of a clinically suspicious abnormality. [id number] Electronically Signed: Angelo Peacock, at 8:28 EST , Service support ,
== END ==
PROVIDERS: Family Provider Family Medicine; PCP Family Medicine; Referring Provider Obstetrics & Gynecology; Visit Provider Obstetrics & Gynecology
DX: Z12.31 Encounter for screening mammogram for malignant neoplasm of breast (principal)
CPT/HCPCS: 77063; 77067

== ENCOUNTER → 2019-04-11 11:32 | Outpatient (CLI) | payer OTHER, SELFPAY ==
[2019-04-04 07:55] VITALS: BMI 24.4
[2019-04-11 12:59] LABS: Calcium,Total 9.3 mg/dL (8.5-10.1)
[2019-04-11 13:14] LABS: Vitamin D,25 Hydroxy 42.6 ng/mL (29.95-100.01)
== END ==
PROVIDERS: Visit Provider Obstetrics & Gynecology
DX: M85.80 Other specified disorders of bone density and structure, unspecified site (principal); M85.9 Disorder of bone density and structure, unspecified
CPT/HCPCS: 36415; 82306; 82310

== ENCOUNTER → 2019-11-20 06:08 | Outpatient (CLI) | payer OTHER, SELFPAY ==
[2019-04-04 07:55] VITALS: BMI 24.4
[2019-11-20 06:53] LABS: Absolute Lymphocyte Count 1.75 X10^3/uL (0.83-4.51); Basophil# 0.03 X10^3/uL; Basophil% 0.5 % (0-1); Eosinophil# 0.11 X10^3/uL; Eosinophils% 1.7 % (0-5); Hematocrit 42.4 % (37-47); Hemoglobin 14.4 g/dL (12.0-15.0); Lymphocyte # 1.75 X10^3/ul (4.0); Lymphocyte % 26.8 % (19-41); Mean Corpuscular Volume 100.2 fL (81-99); Mean Platelet Vol. 10.1 fl (6.2-12.0); Monocyte# 0.57 X10^3/uL; Monocyte% 8.7 % (0-10); NRBC Flagged by Analyzer 0 % (0-5); Neutrophil # 4.02 X10^3/uL (2.7-7.7); Neutrophil % 61.7 % (47-70); Platelet Count 207 K/mm3 (150-450); Red Blood Count 4.23 M/mm3 (4.2-5.4); White Blood Count 6.5 K/mm3 (4.4-11.0)
[2019-11-20 07:17] LABS: Anion Gap 4 (5-15); BUN 20 mg/dL (7-18); BUN/Creat Ratio 29.8 RATIO (10-20); Calcium,Total 8.5 mg/dL (8.5-10.1); Chloride 108 mmol/L (98-107); Cholesterol 197 mg/dL (200); Creatinine, Serum 0.67 mg/dL (0.55-1.02); EST Glomerular Filtration Rate 95 mL/min (>60); Est Glom Filt Rate - Afr Amer 115 mL/min (>60); Glucose 84 mg/dL (74-106); High Density Lipoprotein 78 mg/dL; Potassium 3.8 mmol/L (3.5-5.1); Sodium Level 141 mmol/L (136-145); Triglycerides 57 mg/dL; Very Low Density Lipoprotein 11 mg/dL (5-40)
[2019-11-20 08:40] LABS: Vitamin D,25 Hydroxy 53.8 ng/mL
== END ==
PROVIDERS: PCP Family Medicine; Referring Provider Family Medicine; Visit Provider Family Medicine
DX: Z00.00 Encounter for general adult medical examination without abnormal findings (principal)
CPT/HCPCS: 36415; 80048; 80061; 82306; 85025

== ENCOUNTER → 2020-02-09 11:01 | Outpatient (CLI) | payer OTHER, SELFPAY ==
[2019-04-04 07:55] VITALS: BMI 24.4
--- NOTE | 2020-02-09 11:03 | RAD_ITS ---
STUDY: X-RAY CHEST REASON FOR EXAM: Female, 59 years old. Possible asthma, COPD TECHNIQUE: PA and lateral views of the chest. COMPARISON: June 26, 2011 chest x-ray FINDINGS: The lungs are clear and expanded. There is no demonstrated pleural abnormality. Normal size heart. Normal mediastinum and emma. Normal visualized pulmonary arteries. Normal visualized aortic arch and descending thoracic aorta. There are diffuse degenerative changes of the visualized thoracic spine. Normal visualized ribs, clavicles, and shoulders. There is no demonstrated abnormality of the visualized soft tissue structures of the upper abdomen. RAD/Chest PA and Lateral IMPRESSION: Stable chest no visualized acute focal infiltrate. Electronically Signed: Laura Clay MD at 5:04 EDT Tel , Service support ,
== END ==
PROVIDERS: PCP Family Medicine; Referring Provider Family Medicine; Visit Provider Family Medicine
DX: J45.909 Unspecified asthma, uncomplicated (principal); R06.00 Dyspnea, unspecified
CPT/HCPCS: 71046

== ENCOUNTER → 2020-02-16 06:47 | Outpatient (CLI) | payer OTHER, SELFPAY ==
[2019-04-04 07:55] VITALS: BMI 24.4
--- NOTE | 2020-02-17 09:04 | PFT ---
INTRODUCTION: The patient is a 59-year-old female that presents for pulmonary function studies secondary to a diagnosis of asthma. Respiratory therapy reports good patient effort. Bronchodilators were used during testing. INTERPRETATION: Forced expiration spirometry demonstrates the presence of a mild large airways obstructive ventilatory defect. There was no significant response to aerosolized bronchodilators. Spirograms are of good quality and plateau gradually indicating slow emptying of the lungs. Body plethysmography was performed and reveals lung volumes to be within normal limits. Diffusing capacity by single breath CO is also within normal limits. IMPRESSION: Irreversible mild large airways obstructive ventilatory defect with preserved lung volumes and diffusing capacity.
== END ==
PROVIDERS: PCP Family Medicine; Referring Provider Family Medicine; Visit Provider Family Medicine
DX: J45.909 Unspecified asthma, uncomplicated (principal); R06.00 Dyspnea, unspecified
CPT/HCPCS: 94060; 94726; 94729

== ENCOUNTER → 2020-03-15 15:55 | Outpatient (CLI) | payer OTHER, SELFPAY ==
[2019-04-04 07:55] VITALS: BMI 24.4
[2020-03-18 16:10] LABS: HPV Reflexed? NOT INDICATED
== END ==
PROVIDERS: PCP Family Medicine; Visit Provider Obstetrics & Gynecology
DX: Z12.4 Encounter for screening for malignant neoplasm of cervix (principal)
CPT/HCPCS: 88175; G0145

== ENCOUNTER → 2020-03-22 09:50 | Outpatient (CLI) | payer OTHER, SELFPAY ==
[2019-04-04 07:55] VITALS: BMI 24.4
== END ==
PROVIDERS: PCP Family Medicine; Referring Provider Internal Medicine Gastroenterology; Visit Provider Internal Medicine Gastroenterology
DX: Z11.59 Encounter for screening for other viral diseases (principal)
CPT/HCPCS: 87635; C9803; U0003

== ENCOUNTER → 2020-04-06 11:30 | Outpatient (CLI) | payer OTHER, SELFPAY ==
[2019-04-04 07:55] VITALS: BMI 24.4
[2020-04-06 14:15] LABS: Albumin, Serum 3.9 g/dL (3.2-5.0); BUN 17 mg/dL (7-18); BUN/Creat Ratio 24.8 RATIO (10-20); Calcium,Total 8.7 mg/dL (8.5-10.1); Chloride 105 mmol/L (98-107); Creatinine, Serum 0.68 mg/dL (0.55-1.02); EST Glomerular Filtration Rate 93 mL/min (>60); Est Glom Filt Rate - Afr Amer 112 mL/min (>60); Glucose 75 mg/dL (74-106); Phosphorus 3.6 mg/dL (2.5-4.9); Potassium 3.9 mmol/L (3.5-5.1); Sodium Level 138 mmol/L (136-145)
[2020-04-06 14:21] LABS: Vitamin D,25 Hydroxy 31.4 ng/mL
== END ==
PROVIDERS: PCP Family Medicine; Visit Provider Obstetrics & Gynecology
DX: M85.9 Disorder of bone density and structure, unspecified (principal)
CPT/HCPCS: 36415; 80069; 82306

== ENCOUNTER → 2020-04-08 07:15 | Outpatient (CLI) | payer OTHER, SELFPAY ==
[2019-04-04 07:55] VITALS: BMI 24.4
--- NOTE | 2020-04-08 07:17 | BI_ITS ---
MAMMOGRAPHY - BILATERAL SCREENING REASON FOR EXAM: Female, 59 years old. Routine annual screening examination. PERTINENT HISTORY: Aunt with breast cancer. TECHNIQUE: Digital bilateral breast ray (3D mammographic acquisition) in the CC and MLO projections. 2-D mediolateral oblique (MLO) and craniocaudad (CC) views of both breasts were obtained. CAD: Full Field Digital Mammography with Computer Added Detection was performed. COMPARISON: Comparison is made with prior study dated 03/31/2019 and 03/29/2018. FINDINGS: Breast Composition: The breasts are heterogeneously dense, which may obscure small masses. There are no dominant masses or suspicious calcifications. No other significant abnormalities are identified. There has been no significant change since the prior study. BI/SCREEN MAMM (CAD) W/RAY BILAT IMPRESSION: Stable bilateral screening mammogram. Yearly follow-up mammogram recommended. (A) ASSESSMENT CATEGORY: BIRADS Category 1: Negative. A letter regarding these results will be sent to the patient by the facility within 30 days. Approximately 10% of breast cancers are not detected by mammography. A normal mammogram should not delay biopsy of a clinically suspicious abnormality. [id number] Electronically Signed: Angelo Peacock, at 9:20 EST , Service support ,
== END ==
PROVIDERS: PCP Family Medicine; Referring Provider Obstetrics & Gynecology; Visit Provider Obstetrics & Gynecology
DX: Z12.31 Encounter for screening mammogram for malignant neoplasm of breast (principal)
CPT/HCPCS: 77063; 77067

== ENCOUNTER → 2020-11-19 12:28 | Outpatient (CLI) | payer OTHER, SELFPAY ==
[2019-04-04 07:55] VITALS: BMI 24.4
--- NOTE | 2020-11-19 12:30 | STEWCON_ITS ---
Reason For Study: Chest Pain Stress Results Protocol: Iggy Protocol WITH DEFINITY Maximum Predicted HR: 158 bpm Target HR: 134 bpm % Maximum Predicted HR: 90 % DurationHeart Rate Stage (mm:ss) (bpm) BP Comment Baseline 69 102/70No Chest Pain; 4 ML Diluted Definity Iggy Protocol Stage I 3:00 99 110/68No Chest Pain [place] Protocol Stage II 3:00 111 118/70No Chest Pain [place] Protocol Stage III 3:00 126 144/76No Chest Pain [place] Protocol Stage IV 1:00 142 / No Chest Pain; Mild Dyspnea Recovery 93 104/72No Chest Pain Stress Duration: 10:00 mm:ss Maximum Stress HR: 142 bpm METS: 13 Baseline Echocardiogram Findings Stress Echo Wall motion Data Resting WM Intermediate WM Stress WM Resting Wall Motion Wall Motion Stress All segments Normal. All segments Hyperkinetic. Ejection Fraction 60 %. Ejection Fraction 70 %. Stress Results Heart rate response: Appropriate Blood pressure response: Normal resting blood pressure-appropriate response Arrhythmias: None Functional capacity: Good Stopped secondary to: Dyspnea. EKG Data Baseline ECG: Sinus rhythm. Peak exercise ECG: No obvious ECG changes. Symptoms with Stress No complaint of chest discomfort during exercise or recovery. ECHO/Stress Test Echo W/Contrast Interpretation Summary Contrast injection performed Negative (adequate) stress echocardiogram Ordering Physician: Milan Carrero Referring Physician: Luis Alberto Srinivasan Performed By: Lila Tony, RDCS, RVT
== END ==
PROVIDERS: PCP Family Medicine; Referring Provider Family Medicine; Visit Provider Family Medicine
DX: I20.9 Angina pectoris, unspecified (principal)
CPT/HCPCS: 93017; 93350; Q9957; A4216; C8928; J3490

== ENCOUNTER → 2020-12-28 13:14 | Outpatient (CLI) | payer OTHER, SELFPAY | PROVIDERS: PCP Family Medicine; Referring Provider Family Medicine; Visit Provider Family Medicine | DX: Z20.828 Contact with and (suspected) exposure to other viral communicable diseases (principal) | CPT/HCPCS: 87635; U0005; U0003 ==

== ENCOUNTER → 2021-02-28 15:10 | Outpatient (CLI) | payer OTHER, SELFPAY | PROVIDERS: PCP Family Medicine; Visit Provider Family Medicine | DX: Z20.828 Contact with and (suspected) exposure to other viral communicable diseases (principal) | CPT/HCPCS: 87635; U0005; U0003 ==

== ENCOUNTER → 2021-03-24 08:21 | Outpatient (CLI) | payer OTHER, SELFPAY ==
[2021-03-24 10:13] LABS: Vitamin D,25 Hydroxy 45.2 ng/mL
[2021-03-24 10:26] LABS: ALB/GLOB Ratio 1.3 RATIO (0.9-2.4); AST(SGOT) 16 U/L (15-37); Alanine Aminotransfer ALT/SGPT 30 U/L (13-56); Albumin, Serum 3.8 g/dL (3.2-5.0); Alkaline Phosphatase 54 U/L (45-117); Anion Gap 6 (5-15); BUN 18 mg/dL (7-18); BUN/Creat Ratio 24.2 RATIO (10-20); Calcium,Total 8.7 mg/dL (8.5-10.1); Chloride 109 mmol/L (98-107); Creatinine, Serum 0.74 mg/dL (0.55-1.02); EST Glomerular Filtration Rate 84 mL/min (>60); Est Glom Filt Rate - Afr Amer 101 mL/min (>60); Glucose 93 mg/dL (74-106); Potassium 3.8 mmol/L (3.5-5.1); Protein, Total 6.8 g/dL (6.4-8.2); Sodium Level 142 mmol/L (136-145)
== END ==
PROVIDERS: PCP Family Medicine; Referring Provider Obstetrics & Gynecology; Visit Provider Obstetrics & Gynecology
DX: M85.80 Other specified disorders of bone density and structure, unspecified site (principal)
CPT/HCPCS: 36415; 80053; 82306

== ENCOUNTER 2021-04-10 08:09 | Emergency (ER) | payer OTHER, SELFPAY ==
[2021-04-10 08:10] VITALS: BP 117/78; PULSE 93; RESP 16; TEMP 37.3; O2SAT 100; BMI 27.6
--- NOTE | 2021-04-10 08:29 | CT_ITS ---
STUDY: CT BRAIN WITHOUT CONTRAST REASON FOR EXAM: Female, 60 years old. headache RADIATION DOSAGE (If Supplied By Facility): CTDIvol = ( 44.99 ) mGy, DLP = ( 745.49 ) mGycm TECHNIQUE: Transaxial CT imaging of the brain was performed without administration of intravenous contrast material. Individualized dose optimization techniques were used for this CT. COMPARISON: 04/13/2016 FINDINGS: Normal soft tissue structures. Normal calvarium. Normal size ventricles and extra-axial spaces for the patient''s age. Normal white matter tracts of the cerebral hemispheres. Normal basal ganglia and thalami. Normal brainstem. Normal cerebellum. There is no intracranial hemorrhage. There are no findings of an acute ischemic infarction. Normal visualized paranasal sinuses. CT/Brain/Head without Contrast IMPRESSION: Normal unenhanced CT scan of the brain. Electronically Signed: Rolando Schulte MD at 9:07 EST Tel , Service support ,
[2021-04-10 08:40] LABS: Absolute Lymphocyte Count 0.95 X10^3/uL (0.83-4.51); Absolute Neutrophil Count 3.6 X10^3/uL (2.0-7.7); Basophil# 0.02 X10^3/uL; Basophil% 0.4 % (0-1); Eosinophil# 0.01 X10^3/uL; Eosinophils% 0.2 % (0-5); Hematocrit 42.1 % (37-47); Hemoglobin 14.5 g/dL (12.0-15.0); Lymphocyte # 0.95 X10^3/ul (0.83-4.51); Lymphocyte % 18.6 % (19-41); Mean Corp Hgb Conc 34.4 g/dL (32-36); Mean Corpuscular Volume 98.8 fL (81-99); Mean Platelet Vol. 10.4 fl (6.2-12.0); Monocyte# 0.46 X10^3/uL; NRBC Flagged by Analyzer 0 % (0-5); Neutrophil # 3.62 X10^3/uL (2.7-7.7); Neutrophil % 70.6 % (47-70); Platelet Count 167 K/mm3 (150-450); RBC Distribution Width CV 12.7 % (11.6-14.6); RBC Distribution Width SD 45.5 fl (35.1-43.9); Red Blood Count 4.26 M/mm3 (4.2-5.4); White Blood Count 5.1 K/mm3 (4.4-11.0)
--- NOTE | 2021-04-10 08:40 | EDS_ITS ---
HPI History of Present Illness Chief Complaint: Headache Informant: patient and spouse/S.O. Narrative Narrative: 60-year-old female presents the emergency room with 4-day history of diffuse headache shoulder pain and neck pain. She notes that she has had 2 home Covid test that were negative. She notes a rash on her right thigh left ankle and toe that has been present intermittently since December after she got a Covid shot. Her daughter wondered if she had Lyme disease. She has seen dermatology primary care and orthopedics for a variety of issues including tendinitis. Was recently prescribed tramadol but stopped taking it due to nausea. She denies any fever vomiting diarrhea sore throat or runny nose or cough. PFSH PFSH Home Medications denosumab 60 mg/mL subcutaneous syringe 60 mg SC [id number] 10/14/18 [History Last Taken Unknown] fluticasone furoate 200 mcg-vilanterol 25 mcg/dose inhalation powder 1 inh INHALATION DAILY 10/14/18 [History Last Taken Unknown] lansoprazole 15 mg capsule,delayed release 15 mg PO BID 10/14/18 [History Last Taken Unknown] estradiol [Yuvafem] 10 mcg VAGINAL MOWEFR 04/10/21 [History Last Taken Unknown] fluticasone propionate 2 spray INTRANASAL DAILY 04/10/21 [History Last Taken Unknown] ketorolac 10 mg PO Q8H PRN 5 Days #15 tab 04/10/21 [Rx Last Taken Unknown] oxybutynin chloride 5 mg PO DAILY 04/10/21 [History Last Taken Unknown] prucalopride [Motegrity] 2 mg PO DAILY 04/10/21 [History Last Taken Unknown] Allergy/AdvReac Type Severity Reaction Status Date / Time No Known Allergies Allergy Verified 04/10/21 08:10 Surgical History (Updated 04/10/21 @ 08:43 by Belia Mariscal) History of arthroplasty of finger of left hand History of tonsillectomy Hx of right knee surgery Social History (Updated 04/10/21 @ 08:[address] Crow Ho, ) Smoking Status: Never smoker substance use type: does not use ROS ROS ED Constitutional Constitutional ED: Denies chills, fever(s) or weight loss Eyes Eyes: Denies change in vision or diplopia ENT ENT ED: Denies ear pain, rhinorrhea or sore throat Cardiovascular Cardiovascular: Denies chest pain, orthopnea, palpitations or racing heartbeat Respiratory/Chest Respiratory/Chest: Denies cough, dyspnea or orthopnea Gastrointestinal Gastrointestinal: Reports nausea; Denies abdominal pain, diarrhea or vomiting Genitourinary Genitourinary ED: Denies dysuria, hematuria or urinary frequency Musculoskeletal Musculoskeletal: Reports neck pain; Denies arthralgias or myalgias Integumentary Reports rash; Denies abscess Neurologic Neurologic: Reports headache(s); Denies weakness Psychiatric Psychiatric: Denies anxiety, depression, suicidal ideation or suicidal thoughts Endocrine Endocrinology: Denies polydipsia, polyphagia or polyuria Allergic/Immunologic Allergic/Immunologic ED: Denies mouth swelling, tongue swelling or urticaria EXAM Physical Exam Const Vital Signs: 04/10/21 08:10 Temperature 99.2 F H Temperature Source Temporal Pulse Rate 93 Respiratory Rate 16 Blood Pressure 117/78 Blood Pressure Mean 91 Pulse Ox 100 Oxygen Delivery Method Room Air Positive well nourished and well developed General Appearance ED: well developed HEENT Reports normocephalic, head/scalp atraumatic, TM's clear and moist mucous membranes Negative for trauma Tympanic Membrane ED: Yes TM's clear Eyes PERRL and EOMs intact bilaterally Neck no lymphadenopathy, supple and no JVD Resp normal respiratory effort and clear to auscultation bilaterally Cardio regular rate, regular rhythm and no murmurs GI normal to inspection, nondistended, normoactive bowel sounds and non-tender Palpation: soft Back/Spine no CVA tenderness and normal ROM Extremity normal to inspection General Extremety ED: Negative for edema General Extremity: Negative for edema Neuro oriented x3 and CN's II-XII intact bilaterally Sensorium / Orientation: alert Motor Exam: strength 5/5 throughout Psych mental status grossly normal Mood & Affect: Negative for depressed or tearful Skin no wounds Skin Narrative: Located on the lateral aspect of the right thigh is a papular rash with discrete lesions of about 3 that are erythematous slightly raised. Measuring about 2 mm in diameter. MDM MDM MDM Narrative Medical decision making narrative: CT the brain was negative. Basic blood work was negative. Patient received a dose of Toradol. At this point I do not find anything that would require hospitalization. I do not think that this is Lyme disease. Patient will be discharged home prescription for Toradol. Follow-up with primary care if not improving return if worsening or concerns Lab Data Attestation: I reviewed the patient's lab results. Labs: Laboratory Results - last 24 hr 04/10/21 04/10/21 08:32 08:32 WBC 5.1 RBC 4.26 Hgb 14.5 Hct 42.1 MCV 98.8 MCH 34.0 H MCHC 34.4 RDW Std Deviation 45.5 H RDW Coeff of Nora 12.7 Plt Count 167 MPV 10.4 Immature Gran % (Auto) 1.200 H Neut % (Auto) 70.6 H Lymph % (Auto) 18.6 L [place] % (Auto) 9.0 Eos % (Auto) 0.2 Baso % (Auto) 0.4 Absolute Neuts (auto) 3.6 Absolute Lymphs (auto) 0.95 Nucleated RBC % 0 Sodium 140 Potassium 4.0 Chloride 109 H Carbon Dioxide 26.0 Anion Gap 5 BUN 14 Creatinine 0.63 Estim Creat Clear Calc 76.59 Est GFR (MDRD) Af Amer 124 Est GFR (MDRD) Non-Af 102 BUN/Creatinine Ratio 22.4 H Glucose 106 Calcium 8.3 L Total Bilirubin 0.30 AST 15 ALT 25 Alkaline Phosphatase 74 Total Protein 6.6 Albumin 3.3 Globulin 3.3 Albumin/Globulin Ratio 1.0 TSH 0.93 Radiography Diagnostic Testing: Clinical Impression(s) from Imaging Studies Brain CT 04/10/21 08:29 IMPRESSION: Normal unenhanced CT scan of the brain. Electronically Signed: Rolando Schulte MD at 9:07 EST Tel , Service support , Discharge Plan Triage Chief Complaint: Headache ED Provider: Crow Ho Dx/Rx/DC Orders Clinical Impression: Headache, Rash Instructions: ED Headache Unspecified Prescriptions: New ketorolac 10 mg tablet 10 mg PO Q8H PRN (Reason: pain) 5 Days Qty: 15 RF: 0 No Action Breo Ellipta 200-25 mcg/dose blister with device 1 inh INHALATION DAILY RF: 0 lansoprazole [Prevacid] 15 mg capsule,delayed release(DR/EC) 15 mg PO BID RF: 0 Prolia 60 mg/mL syringe 60 mg SC [id number] RF: 0 oxybutynin chloride 5 mg tablet extended release 24hr 5 mg PO DAILY RF: 0 fluticasone propionate 50 mcg/actuation spray,suspension 2 spray INTRANASAL DAILY RF: 0 estradiol [Yuvafem] 10 mcg tablet 10 mcg VAGINAL MOWEFR RF: 0 Motegrity 2 mg tablet 2 mg PO DAILY RF: 0 Primary Care Provider: Jesse Khan Referrals: Jesse Khan DO [Primary Care Provider] - 1 Week if not improving Disposition Disposition: Home, Self Care
[2021-04-10] MEDS: Ketorolac 30 MG/ML Syringe IV (08:43)
[2021-04-10 09:09] LABS: AST(SGOT) 15 U/L (15-37); Alanine Aminotransfer ALT/SGPT 25 U/L (13-56); Albumin, Serum 3.3 g/dL (3.2-5.0); Alkaline Phosphatase 74 U/L (45-117); Anion Gap 5 (5-15); BUN 14 mg/dL (7-18); BUN/Creat Ratio 22.4 RATIO (10-20); Calcium,Total 8.3 mg/dL (8.5-10.1); Chloride 109 mmol/L (98-107); Creatinine, Serum 0.63 mg/dL (0.55-1.02); EST Glomerular Filtration Rate 102 mL/min (>60); Est Glom Filt Rate - Afr Amer 124 mL/min (>60); Estimated Creatinine Clearance 76.59 ml/min; Globulin 3.3 g/dL (2.2-4.2); Glucose 106 mg/dL (74-106); Protein, Total 6.6 g/dL (6.4-8.2); Sodium Level 140 mmol/L (136-145); Thyroid Stim Hormone (TSH) 0.93 uIU/mL (0.358-3.74)
[2021-04-10 10:14] VITALS: PULSE 88; RESP 17; O2SAT 98
== END 2021-04-10 10:14 | disposition home or self-care (01) ==
PROVIDERS: Emergency Provider Emergency Medicine; PCP Family Medicine
DX: R51.9 Headache, unspecified (principal); R21 Rash and other nonspecific skin eruption; R11.0 Nausea
CPT/HCPCS: 70450; 80053; 84443; 85025; 87426; 96374; 99283; A4216

== ENCOUNTER → 2021-04-13 07:40 | Outpatient (CLI) | payer OTHER, SELFPAY ==
--- NOTE | 2021-04-13 07:43 | BI_ITS ---
MAMMOGRAPHY - BILATERAL SCREENING 3-D TOMOSYNTHESIS REASON FOR EXAM: Female, 60 years old. SCREENING PERTINENT HISTORY: No significant family history. TECHNIQUE: 2-D mammograms and 3-D Tomosynthesis of the breast (s) were performed. CAD was performed. COMPARISON: 04/08/2020 FINDINGS: The breast composition is heterogeneously dense that can obscure small breast masses. Scattered benign calcifications are seen. No dense spiculated masses or suspicious microcalcifications are identified. No architectural distortion is identified. There is no skin thickening or retraction. There has been no significant change since the prior study. BI/SCRN MAMM (CAD)W/RAY BILAT IMPRESSION: No mammographic signs of malignancy. Routine yearly mammograms recommended. ASSESSMENT CATEGORY: BIRADS Category 1: Negative. A letter regarding these results will be sent to the patient by the facility within 30 days. FOLLOW UP RECOMMENDATION: Yearly follow up mammogram recommended. (A) Approximately 10% of breast cancers are not detected by mammography. A normal mammogram should not delay biopsy of a clinically suspicious abnormality. Electronically Signed: Rolando Schulte MD at 10:18 EST Tel , Service support ,
== END ==
PROVIDERS: PCP Family Medicine; Referring Provider Obstetrics & Gynecology; Visit Provider Obstetrics & Gynecology
DX: Z12.31 Encounter for screening mammogram for malignant neoplasm of breast (principal)
CPT/HCPCS: 77063; 77067

== ENCOUNTER → 2021-04-14 12:09 | Outpatient (CLI) | payer OTHER, SELFPAY ==
[2021-04-20 17:07] LABS: Lyme IgG P18 Ab Absent (.); Lyme IgG P23 Ab Absent (.); Lyme IgG P28 Ab Absent (.); Lyme IgG P30 Ab Absent (.); Lyme IgG P39 Ab Absent (.); Lyme IgG P41 Ab Absent (.); Lyme IgG P45 Ab Absent (.); Lyme IgG P58 Ab Absent (.); Lyme IgG P66 Ab Absent (.); Lyme IgG P93 Ab Absent (.); Lyme IgM P23 Ab Absent (.); Lyme IgM P39 Ab Absent (.); Lyme IgM P41 Ab Absent (.)
[2021-04-20 19:25] LABS: Lyme IgG WB Interpretation Negative (.); Lyme IgM WB Interpretation Negative (.)
== END ==
PROVIDERS: PCP Family Medicine; Referring Provider Family Medicine; Visit Provider Family Medicine
DX: R21 Rash and other nonspecific skin eruption (principal)
CPT/HCPCS: 36415; 86617

== ENCOUNTER 2021-04-20 08:36 | Outpatient (CLI) | payer OTHER, SELFPAY | END 2021-04-20 23:59 | disposition short-term general hospital (02) | LOC: LABSPEC 08:36 | PROVIDERS: PCP Family Medicine; Visit Provider Family Medicine | DX: U07.1 COVID-19 (principal) | CPT/HCPCS: 87635; U0003; U0005 ==

== ENCOUNTER 2021-07-05 13:16 | Outpatient (CLI) | payer OTHER, SELFPAY ==
--- NOTE | 2021-07-05 13:23 | BD_ITS ---
STUDY: DUAL ENERGY X-RAY ABSORPTIOMETRY / DXA REASON FOR EXAM: Female, 61 years old. V49.81. The patient is postmenopausal. TECHNIQUE: Bone Mineral Density (BMD) measurements of lumbar spine and bilateral hips were obtained. COMPARISON: Comparison is made with prior study dated 03/25/2019 and 02/20/2017. FINDINGS: Lumbar Spine (L1-L4): g/cm2 (0.865) / T-score (-1.7) / Z-score (0.0) Findings are suggestive of osteopenia with a moderate fracture risk. Left Femur Total: g/cm2 (0.814) / T-score (-1.1) / Z-score (0.1) Left Femoral Neck: g/cm2 (0.679) / T-score (-1.5) / Z-score (-0.1) Right Femur Total: g/cm2 (0.814) / T-score (-1.1) / Z-score (0.1) Right Femoral Neck: g/cm2 (0.679) / T-score (-1.5) / Z-score (-0.1) The T-Scores on the most recent prior examination were: Lumbar Spine (L1-L4): There has been improvement of bone density since the previous examination. Left Femur Total: which represents an improvement of 8.4%. Right Femur Total: which represents an improvement of 8.4%. BD/Dexa Bone Density Study IMPRESSION: The patient is considered osteopenic as outlined below according to World Ahsan Organization (WHO) criteria with a moderate fracture risk. There has been improvement of bone density since the previous examination. Reference Information: The T-score is the number of standard deviations above or below the standard which is normal for young adults at their peak bone mineral density. The World Health Organization (WHO) interprets the T-scores as follows: Above -1 Normal bone density Between -1 and -2.5 Osteopenia Equal to / or below -2.5 Osteoporosis As a practical clinical guideline, osteopenia may be graded as follows: Mild -1 through -1.5 Moderate -1.6 through -2.0 Severe -2.1 through -2.4 The Z-score is the number of standard deviations above or below age-matched controls. A Z-score of less than -1.5 would be considered abnormal. References: 1. NIH Osteoporosis and Related Bone Diseases www osteo.org 2. International Society for Clinical Densitometry www iscd.org 3. National Osteoporosis Foundation www nof.org Electronically Signed: Angelo Peacock MD at 8:15 EDT ,
== END 2021-07-05 23:59 | disposition home or self-care (01) ==
PROVIDERS: PCP Family Medicine; Visit Provider Obstetrics & Gynecology
DX: Z78.0 Asymptomatic menopausal state (principal); M85.89 Other specified disorders of bone density and structure, multiple sites
CPT/HCPCS: 77080

== ENCOUNTER → 2021-12-21 | Outpatient (CLI) | payer OTHER, SELFPAY ==
[2021-12-21 10:25] LABS: Absolute Neutrophil Count 2.7 X10^3/uL (2.0-7.7); Basophil# 0.02 X10^3/uL; Basophil% 0.4 % (0-1); Eosinophil# 0.08 X10^3/uL; Eosinophils% 1.7 % (0-5); Hematocrit 43.7 % (37-47); Lymphocyte % 31.7 % (19-41); Mean Corp Hgb Conc 34.3 g/dL (32-36); Mean Corpuscular Hgb 34.9 pg (27.0-32.0); Mean Corpuscular Volume 101.6 fL (81-99); Mean Platelet Vol. 10.3 fl (6.2-12.0); Monocyte# 0.42 X10^3/uL; Monocyte% 8.9 % (0-10); NRBC Flagged by Analyzer 0 % (0-5); Neutrophil # 2.68 X10^3/uL (2.7-7.7); Neutrophil % 56.7 % (47-70); Platelet Count 206 K/mm3 (150-450); RBC Distribution Width CV 12.5 % (11.6-14.6); RBC Distribution Width SD 46.5 fl (35.1-43.9); White Blood Count 4.7 K/mm3 (4.4-11.0)
[2021-12-21 10:29] LABS: Color, Urine Yellow (Yellow); Glucose, Dipstick Normal (Normal); Ketone-Dipstick Negative (Negative); Leukocyte Esterase-Dipstick 25 /ul (Negative); Nitrite-Dipstick Negative (Negative); Occult Blood-Urine Negative /ul (Negative); Protein-Dipstick 15 mg/dl (Negative); Urine Bilirubin Dipstick Negative (Negative); Urine Clarity Clear (Clear); Urine Urobilinogen Normal (Normal)
[2021-12-21 11:01] LABS: ALB/GLOB Ratio 1.2 RATIO (0.9-2.4); AST(SGOT) 17 U/L (15-37); Alanine Aminotransfer ALT/SGPT 27 U/L (13-56); Albumin, Serum 3.7 g/dL (3.2-5.0); Alkaline Phosphatase 54 U/L (45-117); Anion Gap 6 (5-15); BUN 20 mg/dL (7-18); BUN/Creat Ratio 25.3 RATIO (10-20); Calcium,Total 9.1 mg/dL (8.5-10.1); Chloride 105 mmol/L (98-107); Cholesterol 207 mg/dL (200); Creatinine, Serum 0.79 mg/dL (0.55-1.02); EST Glomerular Filtration Rate 78 mL/min (>60); Est Glom Filt Rate - Afr Amer 95 mL/min (>60); Globulin 3.1 g/dL (2.2-4.2); Glucose 85 mg/dL (74-106); High Density Lipoprotein 81 mg/dL; Potassium 4.1 mmol/L (3.5-5.1); Protein, Total 6.8 g/dL (6.4-8.2); Sodium Level 140 mmol/L (136-145); Thyroid Stim Hormone (TSH) 1.37 uIU/mL (0.358-3.74); Triglycerides 63 mg/dL; Very Low Density Lipoprotein 13 mg/dL (5-40)
[2021-12-21 11:21] LABS: Vitamin B12 > 2000 pg/mL (211-911); Vitamin D,25 Hydroxy 49.4 ng/mL
== END | disposition home or self-care (01) ==
LOC: MTLAB 07:48
PROVIDERS: PCP Family Medicine; Referring Provider Family Medicine; Visit Provider Family Medicine
DX: Z00.00 Encounter for general adult medical examination without abnormal findings (principal); R53.83 Other fatigue; E55.9 Vitamin D deficiency, unspecified; M54.50 Low back pain, unspecified
CPT/HCPCS: 36415; 80053; 80061; 81002; 82306; 82607; 84443; 85025

== ENCOUNTER → 2022-02-16 | Outpatient (CLI) | payer OTHER, SELFPAY ==
--- NOTE | 2022-02-16 13:42 | RAD_ITS ---
STUDY: X-RAY CHEST REASON FOR EXAM: Female, 61 years old. Shortness of breath. TECHNIQUE: PA and lateral views of the chest. COMPARISON: February 09, 2020. FINDINGS: The lungs are clear and expanded. There is no demonstrated pleural abnormality. Normal size heart. Normal mediastinum and emma. Normal visualized pulmonary arteries. Normal visualized aortic arch and descending thoracic aorta. Normal visualized thoracic spine. Normal visualized ribs, clavicles, and shoulders. There is no demonstrated abnormality of the visualized soft tissue structures of the upper abdomen. RAD/Chest PA and Lateral IMPRESSION: No acute cardiopulmonary disease or major interval change. Electronically Signed: Jeovanny Calloway DO at 18:38 EDT ,
[2022-02-16 15:39] LABS: Absolute Lymphocyte Count 2.08 X10^3/uL (0.83-4.51); Absolute Neutrophil Count 8.7 X10^3/uL (2.0-7.7); Basophil# 0.03 X10^3/uL; Basophil% 0.3 % (0-1); Eosinophil# 0.01 X10^3/uL; Eosinophils% 0.1 % (0-5); Hematocrit 45.4 % (37-47); Hemoglobin 15.6 g/dL (12.0-15.0); Lymphocyte # 2.08 X10^3/ul (0.83-4.51); Lymphocyte % 18.4 % (19-41); Mean Corp Hgb Conc 34.4 g/dL (32-36); Mean Corpuscular Hgb 34.9 pg (27.0-32.0); Mean Corpuscular Volume 101.6 fL (81-99); Mean Platelet Vol. 10.7 fl (6.2-12.0); Monocyte# 0.36 X10^3/uL; Monocyte% 3.2 % (0-10); NRBC Flagged by Analyzer 0 % (0-5); Neutrophil % 76.9 % (47-70); Platelet Count 259 K/mm3 (150-450); RBC Distribution Width CV 12.7 % (11.6-14.6); RBC Distribution Width SD 47.8 fl (35.1-43.9); Red Blood Count 4.47 M/mm3 (4.2-5.4); White Blood Count 11.3 K/mm3 (4.4-11.0)
[2022-02-16 18:54] LABS: CRP < 2.90 mg/L (0.0-3.0)
== END | disposition home or self-care (01) ==
PROVIDERS: PCP Family Medicine; Referring Provider Family Medicine; Visit Provider Family Medicine
DX: R06.02 Shortness of breath (principal); R07.9 Chest pain, unspecified
CPT/HCPCS: 36415; 71046; 85025; 86140

== ENCOUNTER → 2022-04-03 | Outpatient (CLI) | payer OTHER, SELFPAY ==
[2022-04-13 21:06] LABS: HPV APTIMA, High Risk Negative (Negative)
== END | disposition home or self-care (01) ==
LOC: LABSPEC 16:06
PROVIDERS: PCP Family Medicine; Referring Provider Nurse Practitioner Women's Health; Visit Provider Nurse Practitioner Women's Health
DX: Z12.4 Encounter for screening for malignant neoplasm of cervix (principal)
CPT/HCPCS: 87624; 88175; G0145

== ENCOUNTER → 2022-04-14 | Outpatient (CLI) | payer OTHER, SELFPAY ==
--- NOTE | 2022-04-14 09:00 | BI_ITS ---
MAMMOGRAPHY - BILATERAL SCREENING REASON FOR EXAM: Female, 61 years old. Routine annual screening examination. PERTINENT HISTORY: Aunt with breast cancer. TECHNIQUE: Digital bilateral breast ray (3D mammographic acquisition) in the CC and MLO projections. 2-D mediolateral oblique (MLO) and craniocaudad (CC) views of both breasts were obtained. CAD: Full Field Digital Mammography with Computer Added Detection was performed. COMPARISON: Comparison is made with prior study 04/13/2021 and 04/08/2020. FINDINGS: Breast Composition: The breasts are heterogeneously dense, which may obscure small masses. There are no dominant masses or suspicious calcifications. No other significant abnormalities are identified. There has been no significant change since the prior study. BI/SCRN MAMM (CAD)W/RAY BILAT IMPRESSION: Stable bilateral screening mammogram. Yearly follow-up mammogram recommended. (A) ASSESSMENT CATEGORY: BIRADS Category 1: Negative. A letter regarding these results will be sent to the patient by the facility within 30 days. Approximately 10% of breast cancers are not detected by mammography. A normal mammogram should not delay biopsy of a clinically suspicious abnormality. [id number] Electronically Signed: Angelo Peacock MD at 11:03 EST ,
== END | disposition home or self-care (01) ==
LOC: OPBI 08:59
PROVIDERS: PCP Family Medicine; Visit Provider Nurse Practitioner Women's Health
DX: Z12.31 Encounter for screening mammogram for malignant neoplasm of breast (principal); Z80.3 Family history of malignant neoplasm of breast
CPT/HCPCS: 77063; 77067

== ENCOUNTER → 2022-05-12 | Outpatient (CLI) | payer OTHER, SELFPAY ==
[2022-05-12 13:35] VITALS: BP 125/78; PULSE 90; RESP 16; TEMP 36.3; O2SAT 97
[2022-05-12] MEDS: DENOSUMAB 60 MG/ML SC (13:35)
== END | disposition home or self-care (01) ==
PROVIDERS: PCP Family Medicine; Referring Provider Family Medicine; Visit Provider Family Medicine
DX: M85.80 Other specified disorders of bone density and structure, unspecified site (principal)
CPT/HCPCS: 96372; J0897

== ENCOUNTER → 2022-06-06 | Outpatient (CLI) | payer OTHER, SELFPAY | END | disposition home or self-care (01) | LOC: BFHLAB 16:23 → LABSPEC 16:24 | PROVIDERS: PCP Family Medicine; Visit Provider Family Medicine | DX: J06.9 Acute upper respiratory infection, unspecified (principal) | CPT/HCPCS: 87635; U0003; U0005 ==

== ENCOUNTER 2022-11-17 09:19 | Outpatient (CLI) | payer OTHER, SELFPAY ==
[2022-11-17 09:32] VITALS: BP 124/83; PULSE 82; RESP 16; TEMP 35.8; O2SAT 100; BMI 27.4
[2022-11-17] MEDS: DENOSUMAB 60 MG/ML SC (09:34)
== END 2022-11-17 09:20 | disposition home or self-care (01) ==
LOC: MEDOUTP 09:19
PROVIDERS: PCP Family Medicine; Referring Provider Family Medicine; Visit Provider Family Medicine
DX: M85.80 Other specified disorders of bone density and structure, unspecified site (principal)
CPT/HCPCS: 96372; J0897

== ENCOUNTER → 2022-12-27 | Outpatient (CLI) | payer OTHER, SELFPAY ==
[2022-12-27 06:51] LABS: Absolute Lymphocyte Count 2.42 X10^3/uL (0.83-4.51); Absolute Neutrophil Count 2.5 X10^3/uL (2.0-7.7); Basophil# 0.03 X10^3/uL; Basophil% 0.5 % (0-1); Eosinophil# 0.16 X10^3/uL; Eosinophils% 2.8 % (0-5); Hematocrit 44.3 % (37-47); Hemoglobin 15.4 g/dL (12.0-15.0); Lymphocyte # 2.42 X10^3/ul (0.83-4.51); Mean Corp Hgb Conc 34.8 g/dL (32-36); Mean Corpuscular Hgb 35.5 pg (27.0-32.0); Mean Corpuscular Volume 102.1 fL (81-99); Mean Platelet Vol. 10.4 fl (6.2-12.0); Monocyte# 0.51 X10^3/uL; Monocyte% 9.1 % (0-10); NRBC Flagged by Analyzer 0 % (0-5); Neutrophil # 2.46 X10^3/uL (2.7-7.7); Neutrophil % 43.7 % (47-70); Platelet Count 218 K/mm3 (150-450); RBC Distribution Width CV 12.3 % (11.6-14.6); RBC Distribution Width SD 46.2 fl (35.1-43.9); Red Blood Count 4.34 M/mm3 (4.2-5.4); White Blood Count 5.6 K/mm3 (4.4-11.0)
[2022-12-27 07:35] LABS: ALB/GLOB Ratio 1.1 RATIO (0.9-2.4); AST(SGOT) 11 U/L (15-37); Alanine Aminotransfer ALT/SGPT 23 U/L (13-56); Albumin, Serum 3.7 g/dL (3.2-5.0); Alkaline Phosphatase 65 U/L (45-117); Anion Gap 3 (5-15); BUN 20 mg/dL (7-18); BUN/Creat Ratio 22.2 RATIO (10-20); Calcium,Total 9.2 mg/dL (8.5-10.1); Chloride 103 mmol/L (98-107); Cholesterol 209 mg/dL (200); EST Glomerular Filtration Rate 67 mL/min (>60); Est Glom Filt Rate - Afr Amer 81 mL/min (>60); Globulin 3.3 g/dL (2.2-4.2); Glucose 99 mg/dL (74-106); High Density Lipoprotein 82 mg/dL; Potassium 3.9 mmol/L (3.5-5.1); Sodium Level 136 mmol/L (136-145); Triglycerides 72 mg/dL; Very Low Density Lipoprotein 14 mg/dL (5-40)
[2022-12-27 09:35] LABS: Vitamin D,25 Hydroxy 57.9 ng/mL
== END | disposition home or self-care (01) ==
LOC: LAB 06:02
PROVIDERS: PCP Family Medicine; Referring Provider Family Medicine; Visit Provider Family Medicine
DX: Z00.00 Encounter for general adult medical examination without abnormal findings (principal); M85.80 Other specified disorders of bone density and structure, unspecified site
CPT/HCPCS: 36415; 80053; 80061; 82306; 85025

== ENCOUNTER → 2023-01-22 | Outpatient (CLI) | payer OTHER, SELFPAY | END | disposition home or self-care (01) | LOC: SL 11:24 | PROVIDERS: PCP Family Medicine; Referring Provider Family Medicine; Visit Provider Family Medicine | DX: G47.10 Hypersomnia, unspecified (principal) | CPT/HCPCS: 95806 ==

== ENCOUNTER → 2023-04-18 | Outpatient (CLI) | payer OTHER, SELFPAY ==
--- NOTE | 2023-04-18 08:55 | US_ITS ---
STUDY: ULTRASOUND BREAST - RIGHT REASON FOR EXAM: Female, 62 years old. Palpable mass TECHNIQUE: Axial and longitudinal images of the RIGHT breast were performed with a high resolution ultrasound transducer. # OF IMAGES: 22 COMPARISON: Diagnostic mammogram earlier today FINDINGS: RIGHT Breast: Heterogeneous background echotexture. At 5:00, 4 cm, ultrasound fails to demonstrate a discrete solid or cystic mass. Some dilated ducts are noted.: US/Breast Limited Unilateral IMPRESSION: Some dilated ducts but no discrete mass. ASSESSMENT CATEGORY: BIRADS Category 2: Benign. A letter regarding these results will be sent to the patient by the facility within 30 days. Electronically Signed: Rolando Schulte MD at 14:11 EST ,
--- NOTE | 2023-04-18 08:55 | BI_ITS ---
MAMMOGRAPHY - BILATERAL DIAGNOSTIC REASON FOR EXAM: Female, 62 years old. right breast mass PERTINENT HISTORY: Non-contributory. TECHNIQUE: Digital examination. Mediolateral oblique (MLO) and craniocaudad (CC) views of both breasts were obtained. CAD: CAD was performed on this study. COMPARISON: 04/14/2022 FINDINGS: Breast Composition: There are scattered areas of fibroglandular density. There are no dominant masses or suspicious calcifications. No other significant abnormalities are identified. BI/DIAG MAMM W/CAD, BILAT IMPRESSION: Stable bilateral diagnostic mammogram. Ultrasound of the palpable abnormality in the right breast will be obtained. ASSESSMENT CATEGORY: BIRADS Category 0: Incomplete. Need additional imaging evaluation. A letter regarding these results will be sent to the patient by the facility within 30 days. FOLLOW UP RECOMMENDATION: Ultrasound Recommended. (I) Approximately 10% of breast cancers are not detected by mammography. A normal mammogram should not delay biopsy of a clinically suspicious abnormality. Electronically Signed: Rolando Schulte MD at 9:47 EST ,
--- OUTSIDE RECORDS SUMMARY | 2023-04-18 09:49 | XMS RPT_ITS | CCD ---
Author Name Unknown Address [address] [place] [address] Organization [facility] Care Team Providers Care Intel Recruiter Name Role Phone Luis Alberto Alonso Primary Care Provider VIJAYA COULTER Attending Unavailable LUIS ALBERTO ALONSO Primary Care Unavailable VIJAYA COULTER Admitting Unavailable VIJAYA COULTER Referring Unavailable LUIS ALBERTO ALONSO Primary Care Unavailable Medications Current Medications Medication Drug Class(es) Dates Sig (Normalized) Sig (Original) Ascorbic Acid (1 source) Vitamin C ascorbic acid (VITAMIN C ORAL) Take by mouth . 0 Active cholecalciferol, vitamin D3, (VITAMIN D3 ORAL) (1 source) cholecalciferol, vitamin D3, (VITAMIN D3 ORAL) Take by mouth . 0 Active estradiol 0.01 mg vaginal tablet (1 source) Estrogen estradioL (VAGIF EM) 10 mcg Tab Insert 10 mcg into the vagina every other day . 0 Active lansoprazole 30 mg delayed release oral capsule (1 source) Proton Pump Inhibitor Start: 11-02-2008 lansoprazole (Prevacid) 30 MG capsule Take by mouth . 0 11/02/2008 Active prucalopride succinate (MOTEGRITY ORAL) (1 source) prucalopride succinate (MOTEGRITY ORAL) Take by mouth . 0 Active Completed/Discontinued Medications Medication Drug Class(es) Dates Sig (Normalized) Sig (Original) 1 ml triamcinolone acetonide 40 mg/ml injection (1 source) Corticosteroid Start: 01-05-2020 End: 01-05-2020 triamcinolone acetonide (KENALOG-40) injection 40 mg Problems Problem Classification Problem Date Documented Da te Episodic/Chronic Other connective tissue disease (1 source) Medial epicondylitis of right humerus; Translations: [Medial epicondylitis of right elbow] Results Test Name Value Interpretation Reference Range Facil ity Vital Signs Date Time Vital Sign Value Performing Clinician Faci lity 01-05-2020 14:59-0400 BMI (Body Mass Index) 26.57 kg/m2 Vijaya Coulter [facility] 01-05-2020 14:59-0400 Body weight 68.04 kg Vijaya Coulter [facility] 01-05-2020 14:59-0400 Height 160 cm Vijaya Duttoncock [facility] Encounters Encounter Date Encounter Type Care Provider Facility Start: 01-05-2020 End: 01-09-2020 Patient encounter procedure VIJAYA DUTTONCOCK [facility] Amb[facility] Start: 01-05-2020 End: 01-05-2020 Office outpatient new 45 minutes Vijaya Coulter Work Phone: [facility] Procedures Date Procedure Procedure Detail Performing Clinician Start: 01-05-2020 Arthrocentesis aspir &/inj interm jt/burs w/o us Vijaya Coulter Work Phone: Plan of Treatment Date Care Activity Detail Author Start: 08-29-2022 Tetanus vaccination Tetanus: Every 1 0yrs [facility] Start: 12-16-2019 Influenza vaccination given Se quential Influenza Vaccine (#1) [facility] Start: 2008 Administration of he rpes zoster vaccine Zoster Vaccines (1 of 2) [facility] Start: 2008 Screening for malign ant neoplasm of colon [facility] Start: 1976 Hepatitis C antibody , confirmatory test Hepatitis C Screening [facility] Start: 1973 HIV screening HIV Screening [facility] Start: 1961 History and physical examination, annual for health maintenance Wellness Visit [facility] Start: 1958 Depression screening using PHQ-9 (Patient Health Questionnaire 9) score Depression Screening (PHQ9) [facility] Start: 1958 Screening for malign ant neoplasm of cervix Pap Smear [facility] Start: 1958 Screening mammography Mammogram [facility] Payers Date Payer Category Payer Unknown [id number] 1958 Unknown [id number] Unknown COMMERCIAL COMME RCIAL MISCELLANEOUS [id number] Effective for all dates [id number] Unknown [id number] Social History Date Type Detail Facility Start: 01-05-2020 Tobacco smoking status NHIS Never sm oker [facility] Start: 01-05-2020 Tobacco use and exposure Never used [facility] Start: 01-05-2020 Alcohol intake Current drinke r of alcohol (finding) [facility] Sex Assigned At Not on file [facility] Exposure to SARS-CoV -2 (event) Not sure [facility] History of Present Illness * Vijaya Coulter CNP - 01/05/2020 7:01 PM EDT Associated Order(s): MD Celeste Injection/Arthrocentesis: R medial epicondyle Post-Procedure Diagnose(s): Medial epicondylitis of right elbow MD Celeste Injection/Arthrocentesis: R medial epicondyle Performed by: Vijaya Coulter CNP Authorized by: Vijaya Coulter CNP CPT 84858 - Medium Joint Arthrocentesis: Consent given by: Patient Time out: Immediately prior to the procedure a time out was called Physician or proceduralist has discussed critical or nonroutine steps, procedure duration and anticipated blood loss: Yes Supporting Documentation: Indications: Pain and diagnostic evaluation Procedure Details: Location: Elbow Site: R medial epicondyle Prep: patient was prepped and draped in usual sterile fashion Needle size: 25 G Medications: 40 mg triamcinolone acetonide 40 mg/mL * Vijaya Coulter CNP - 01/05/2020 6:49 PM EDT [facility] [address] [facility] [address] [facility] [id number] Chief Complaint Patient presents with Right Forearm - Pain Nichole Elmore 59 year old, female, presents to the office for her right elbow. She states that she was seen by another provider for tennis elbow. She has received injections in the elbow about a yearago and was sent to physical therapy. She states that she didn't think the therapy or the injections helped. She also bought a tennis elbow strap which she states kept falling down and didn't help much. She states that pain radiates down the arm and sometimes in the hand. She states that she has had some numbness and tingling in the fingers but it is no severe or often. She finds that when the pain is most severe, she has difficulty with strength and holding different items. 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 She states that sometimes it is worse at night. She has tried OTC pain relievers which have taken the edge off pain but it has never completely gone away. She denies any specific injury to the elbow and doesn't remember exactly when it actually started to hurt her. She is concerned because her is having both knees replaced in Nov and she wants to be able to take care of him when he gets home. The patient's past medical history, surgical history, social history, family history, medications and allergies were reviewed with the patient today and are available in the chart for further review. No Known Allergies Current Outpatient Medications: ascorbic acid (VITAMIN C ORAL), Take by mouth ., Disp: , Rfl: cholecalciferol, vitamin D3, (VITAMIN D3 ORAL), Take by mouth ., Disp: , Rfl: estradioL (VAGIFEM) 10 mcg Tab, Insert 10 mcg into the vagina every other day ., Disp: , Rfl: lansoprazole (Prevacid) 30 MG capsule, Take by mouth ., Disp: , Rfl: prucalopride succinate (MOTEGRITY ORAL), Take by mouth ., Disp: , Rfl: Past Medical History: Diagnosis Date COPD (chronic obstructive pulmonary disease) ([facility]) GERD (gastroesophageal reflux disease) Hernia, hiatal Past Surgical History: Procedure Laterality Date HAND SURGERY Left KNEE SURGERY Right LASIK TONSILLECTOMY Social History Socioeconomic History Marital status: Spouse name: Not on file Number of children: Not on file Years of education: Not on file Highest education level: Not on file Occupational History Not on file Social Needs Financial resource strain: Not on file Food insecurity Worry: Not on file Inability: Not on file Transportation needs Medical: Not on file Non-medical: Not on file Tobacco Use Smoking status: Never Smoker Smokeless tobacco: Never Used Substance and Sexual Activity Alcohol use: Yes Drug use: Not on file Sexual activity: Not on file Lifestyle Physical activity Days per week: Not on file Minutes per session: Not on file Stress: Not on file Relationships Social connections Talks on phone: Not on file Gets together: Not on file Attends rastafarian service: Not on file Active member of club or organization: Not on file Attends meetings of clubs or organizations: Not on file Relationship status: Not on file Other Topics Concern Not on file Social History Narrative Not on file ROS: Review of Systems Constitutional: Negative for activity change and fatigue. HENT: Negative for congestion, hearing loss and trouble swallowing. Eyes: Negative for visual disturbance. Respiratory: Negative for chest tightness and shortness of breath. Cardiovascular: Negative for chest pain and palpitations. Gastrointestinal: Negative for abdominal pain, diarrhea, nausea and vomiting. Endocrine: Negative for polydipsia, polyphagia and polyuria. Genitourinary: Negative for decreased urine volume, difficulty urinating and hematuria. Musculoskeletal: Positive for arthralgias and myalgias. Negative for joint swelling. Skin: Negative for color change, rash and wound. Allergic/Immunologic: Negative for immunocompromised state. Neurological: Negative for dizziness, weakness, light-headedness and numbness. Hematological: Does not bruise/bleed easily. Psychiatric/Behavioral: Negative for confusion and sleep disturbance. The patient is not nervous/anxious. PE: Physical Exam Constitutional: She is oriented to person, place, and time. She appears well- developed and well-nourished. HENT: Head: Normocephalic. Eyes: Pupils are equal, round, and reactive to light. Neck: Normal range of motion. Neck supple. Cardiovascular: Normal rate and regular rhythm. Pulmonary/Chest: Effort normal and breath sounds normal. Abdominal: Soft. Bowel sounds are normal. Musculoskeletal: Normal range of motion. General: Tenderness present. Right elbow: Tenderness found. Medial epicondyle tenderness noted. Neurological: She is alert and oriented to person, place, and time. Skin: Skin is warm and dry. ORTHO: Right Elbow Exam Tenderness The patient is experiencing tenderness in the medial epicondyle. Range of Motion The patient has normal right elbow ROM. Muscle Strength The patient has normal right elbow strength. Tests Varus: negative Valgus: negative Tinel's sign (cubital tunnel): positive Other Erythema: absent Scars: absent Sensation: normal Pulse: present Imaging: R Elbow No acute fracture or dislocation. Assessment/Plan: After examination and reviewing of the patient x-ray images, I offered the patienta cortisone injection which she gladly accepted. I did this without complications and she toleratedthis well. If there is no improvement after the injection, she is to call the office and I will order a MRI of the right elbow for further diagnostic evaluation. The patient verbalizes understanding and is in agreement with the treatment plan. I will see her as needed. 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 This clinical summary was aggregated from multiple sources. Caution should be exercised in using it in the provision of clinical care. This summary normalizes information from multiple sources, and as a consequence, information in this document may materially change the coding, format and clinical context of patient data. In addition, data may be omitted in some cases. CLINICAL DECISIONS SHOULD BE BASED ON THE PRIMARY CLINICAL RECORDS. [facility] [employer] [facility]. provides no warranty or guarantee of the accuracy or completeness of information in this document.
== END | disposition home or self-care (01) ==
LOC: OPBI 08:54
PROVIDERS: Visit Provider Nurse Practitioner Women's Health
DX: R92.8 Other abnormal and inconclusive findings on diagnostic imaging of breast (principal); N63.10 Unspecified lump in the right breast, unspecified quadrant
CPT/HCPCS: 76642; 77062; 77066; G0279

== ENCOUNTER 2023-07-25 11:23 | Outpatient (CLI) | payer MEDICARE, BC, SELFPAY ==
[2023-07-25 11:39] VITALS: BP 118/74; PULSE 80; RESP 16; TEMP 36.2; O2SAT 97; BMI 28.3
[2023-07-25] MEDS: DENOSUMAB 60 MG/ML SC (11:44)
== END 2023-07-25 11:24 | disposition home or self-care (01) ==
PROVIDERS: PCP Family Medicine; Referring Provider Family Medicine; Visit Provider Family Medicine
DX: M85.80 Other specified disorders of bone density and structure, unspecified site (principal)
CPT/HCPCS: 96372; J0897

== ENCOUNTER → 2023-12-25 | Outpatient (CLI) | payer MEDICARE, BC, SELFPAY ==
[2023-12-25 07:43] LABS: Absolute Lymphocyte Count 1.96 X10^3/uL (0.83-4.51); Absolute Neutrophil Count 2.8 X10^3/uL (2.0-7.7); Basophil# 0.02 X10^3/uL; Basophil% 0.4 % (0-1); Eosinophil# 0.09 X10^3/uL; Eosinophils% 1.7 % (0-5); Hematocrit 41.5 % (37-47); Hemoglobin 14.1 g/dL (12.0-15.0); Lymphocyte # 1.96 X10^3/ul (0.83-4.51); Lymphocyte % 36.4 % (19-41); Mean Corpuscular Hgb 34.4 pg (27.0-32.0); Mean Corpuscular Volume 101.2 fL (81-99); Mean Platelet Vol. 10.7 fl (6.2-12.0); Monocyte# 0.52 X10^3/uL; Monocyte% 9.6 % (0-10); NRBC Flagged by Analyzer 0 % (0-5); Neutrophil # 2.77 X10^3/uL (2.7-7.7); Neutrophil % 51.3 % (47-70); Platelet Count 234 K/mm3 (150-450); RBC Distribution Width CV 12.3 % (11.6-14.6); RBC Distribution Width SD 46.1 fl (35.1-43.9); White Blood Count 5.4 K/mm3 (4.4-11.0)
[2023-12-25 08:25] LABS: ALB/GLOB Ratio 1.3 RATIO (0.9-2.4); AST(SGOT) 8 U/L (15-37); Alanine Aminotransfer ALT/SGPT 17 U/L (13-56); Albumin, Serum 3.8 g/dL (3.2-5.0); Alkaline Phosphatase 57 U/L (45-117); Anion Gap 6 (5-15); BUN 14 mg/dL (7-18); Calcium,Total 9.3 mg/dL (8.5-10.1); Chloride 106 mmol/L (98-107); Cholesterol 175 mg/dL (200); Creatinine, Serum 0.74 mg/dL (0.55-1.02); EST Glomerular Filtration Rate 84 mL/min (>60); Est Glom Filt Rate - Afr Amer 102 mL/min (>60); Globulin 2.9 g/dL (2.2-4.2); Glucose 96 mg/dL (74-106); High Density Lipoprotein 69 mg/dL; Potassium 3.9 mmol/L (3.5-5.1); Protein, Total 6.7 g/dL (6.4-8.2); Sodium Level 139 mmol/L (136-145); Triglycerides 93 mg/dL; Very Low Density Lipoprotein 19 mg/dL (5-40)
[2023-12-25 08:43] LABS: Vitamin B12 517 pg/mL (211-911); Vitamin D,25 Hydroxy 50.1 ng/mL
== END | disposition home or self-care (01) ==
LOC: LAB 06:30
PROVIDERS: PCP Family Medicine; Referring Provider Family Medicine; Visit Provider Family Medicine
DX: D75.89 Other specified diseases of blood and blood-forming organs (principal); R74.8 Abnormal levels of other serum enzymes; E78.5 Hyperlipidemia, unspecified; E55.9 Vitamin D deficiency, unspecified
CPT/HCPCS: 36415; 80053; 80061; 82306; 82607; 85025

== ENCOUNTER 2024-01-25 11:37 | Outpatient (CLI) | payer MEDICARE, BC, SELFPAY ==
[2024-01-25] MEDS: DENOSUMAB 60 MG/ML SC (11:50)
[2024-01-25 11:57] VITALS: BP 109/70; PULSE 51; RESP 16; TEMP 36.1; O2SAT 94
== END 2024-01-25 23:59 | disposition home or self-care (01) ==
LOC: MEDOUTP 11:37
PROVIDERS: PCP Family Medicine; Referring Provider Family Medicine; Visit Provider Family Medicine
DX: M85.80 Other specified disorders of bone density and structure, unspecified site (principal)
CPT/HCPCS: 96372; J0897

== ENCOUNTER → 2024-04-07 | Outpatient (CLI) | payer MEDICARE, BC, SELFPAY ==
[2024-04-07 16:36] LABS: T4 Free Direct 1.01 ng/dL (0.76-1.46)
== END | disposition home or self-care (01) ==
PROVIDERS: PCP Family Medicine; Referring Provider Family Medicine; Visit Provider Family Medicine
DX: R53.83 Other fatigue (principal)
CPT/HCPCS: 36415; 84439; 84443

== ENCOUNTER → 2024-05-21 | Outpatient (CLI) | payer MEDICARE, BC, SELFPAY ==
--- NOTE | 2024-05-21 09:21 | BI_ITS ---
PROCEDURE: SCRN MAMM (CAD)W/RAY BILAT REASON FOR EXAM: F, Age 63 y/o, aunts with breast cancer. TECHNIQUE: Bilateral screening digital breast tomosynthesis with 2D and 3D images. Computer aided detection. COMPARISON: Prior exam(s) dating back to April 18, 2023.. FINDINGS: The breasts are heterogeneously dense which may obscure small masses. Stable examination. No suspicious masses, areas of developing architectural distortion, or suspicious calcifications. BI/SCRN MAMM (CAD)W/RAY BILAT IMPRESSION: BI-RADS 2: BENIGN. RECOMMEND ANNUAL MAMMOGRAPHIC SCREENING. Follow-up code: Routine Follow-up The patient will be notified of the results by letter. Reading Location: [place] [address]
--- NOTE | 2024-05-21 09:25 | BD_ITS ---
PROCEDURE: DEXA BONE DENSITY STUDY REASON FOR EXAM: 63-year-old female. Osteoporosis screening. TECHNIQUE: DEXA scan of the lumbar spine and both hips. COMPARISON: 07/05/2021 FINDINGS: T-SCORES Lumbar spine: T-score -2.0. Bone mineral density 0.829 g per cm2. (Prior T- score -1.7. 4.2% decreased bone mineral density from the previous study.) Left hip: Femoral neck T-score -1.0. Total femoral neck T-score of -0.7. Bone mineral density 0.42 g per cm2. (Prior T-score -1.1. 5% increased bone mineral density from the previous study.) Right hip: Total right femur and femoral neck T-score -1.1 (right femoral neck bone mineral density 0.722 g per cm2.) prior T-score -1.0. No significant interval change. FRAX* Results: 10 Year Probability of Fracture: Hip Fracture(1): 2.1% Major Osteoporotic Fracture(2): 22% *FRAX is a trademark of the [employer]'s [place] for Metabolic Bone Disease, World Health Organization (WHO) Collaborating [place]. 1-The 10-year probability of fracture may be lower than reported if the patient has received treatment. 2-Major Osteoporotic Fracture: Clinical Spine, Forearm, Hip or Shoulder. The T-scores are also available for review on the [facility] PACS or by accessing the [facility] electronic medical record. BD/Dexa Bone Density Study IMPRESSION: Osteopenia. Reading Location: [place]
== END | disposition home or self-care (01) ==
LOC: OPBI 09:19
PROVIDERS: PCP Family Medicine; Referring Provider Nurse Practitioner Women's Health; Visit Provider Nurse Practitioner Women's Health
DX: Z12.31 Encounter for screening mammogram for malignant neoplasm of breast (principal); Z80.3 Family history of malignant neoplasm of breast; Z13.820 Encounter for screening for osteoporosis; M81.0 Age-related osteoporosis without current pathological fracture; M85.80 Other specified disorders of bone density and structure, unspecified site
CPT/HCPCS: 77063; 77067; 77080

== ENCOUNTER 2024-07-25 09:34 | Outpatient (CLI) | payer MEDICARE, BC, SELFPAY ==
[2024-07-25 09:52] VITALS: BP 99/69; PULSE 85; RESP 16; TEMP 35.8; O2SAT 98
[2024-07-25] MEDS: DENOSUMAB 60 MG/ML SC (09:54)
== END 2024-07-25 23:59 | disposition home or self-care (01) ==
LOC: MEDOUTP 09:35
PROVIDERS: PCP Family Medicine; Referring Provider Family Medicine; Visit Provider Family Medicine
DX: M85.80 Other specified disorders of bone density and structure, unspecified site (principal)
CPT/HCPCS: 96372; J0897

== ENCOUNTER → 2024-08-07 | Outpatient (CLI) | payer MEDICARE, BC, SELFPAY ==
[2024-08-07 18:14] LABS: Erythrocyte Sedimentation Rate 4 mm/hr (0-30)
[2024-08-07 18:21] LABS: CRP < 3.00 mg/L (0.0-3.0)
== END | disposition home or self-care (01) ==
LOC: BFHLAB 16:33
PROVIDERS: PCP Family Medicine; Referring Provider Family Medicine; Visit Provider Family Medicine
DX: R51.9 Headache, unspecified (principal)
CPT/HCPCS: 36415; 85652; 86140

== ENCOUNTER → 2024-09-04 | Outpatient (CLI) | payer MEDICARE, BC, SELFPAY ==
--- NOTE | 2024-09-04 07:39 | CT_ITS ---
PROCEDURE: BRAIN/HEAD W/WO CONTRAST 09/04/2024 REASON FOR EXAM: NEW ONSENT INTRACTABLE HEADACHES TECHNIQUE: Head CT before and following intravenous contrast. Coronal and Sagittal reconstruction series were provided. CONTRAST: Isovue 370 VOLUME: 47 mL IV One or more dose reduction techniques were used (e.g., Automated exposure control, adjustment of the mA and/or kV according to patient size, use of iterative reconstruction technique). RADIATION DOSE SUMMARY: DLP: 1479.73 mGycm COMPARISON: None. FINDINGS: Acute findings: No intracranial hemorrhage, mass, or mass effect is seen Brain: Normal. No orbital pathology is seen Postcontrast images: No area of abnormal postcontrast enhancement is seen CSF Spaces: Normal Sinuses/Mastoids: Clear at visualized levels Bones: No acute osseous process is seen CT/Brain/Head W/WO Contrast IMPRESSION: No significant abnormality is identified. Reading Location: [id number]
== END | disposition home or self-care (01) ==
LOC: CT 07:38
PROVIDERS: PCP Family Medicine; Referring Provider Family Medicine; Visit Provider Family Medicine
DX: R51.9 Headache, unspecified (principal)
CPT/HCPCS: 70470; Q9967

== ENCOUNTER → 2024-11-27 | Outpatient (CLI) | payer MEDICARE, BC, SELFPAY ==
--- OUTSIDE RECORDS SUMMARY | 2024-11-27 09:59 | XMS RPT_ITS | CCD ---
Author Organization [facility] CliniSyil Care Team Providers Care Cafe Associate Name Role Phone Luis Alberto Alonso Primary Care Provider RYAN COULTER Attending Unavailable LUIS ALBERTO ALONSO Primary Care Unavailable RYAN COULTER Admitting Unavailable RYAN COULTER Referring Unavailable LUIS ALBERTO ALONSO Primary Care Unavailable Dr. Jesse Khan Primary Care Provider [phone] Dr. Jesse Khan Referring Provider Isabel MAIL DELIVERER, MAIL DELIVERER-C Dana Attending Provider Dr. Jesse Khan Referring Provider Isabel MAIL DELIVERER, MAIL DELIVERER-C Dana Attending Provider Dr. Jesse Khan Referring Provider Isabel MAIL DELIVERER, MAIL DELIVERER-C Dana Attending Provider Dr. Jesse Khan DO Primary Care Provider Dr. Jesse Khan DO Attending Provider Dr. Jesse Khan DO Referring Provider Isabel MAIL DELIVERER-C, Dana Attending Provider Isabel MAIL DELIVERER-C, Dana Referring Provider Dr. Jesse Khan DO Primary Care Provider Isabel MAIL DELIVERER-C, Dana Attending Provider Dr. Jesse Khan DO Attending Provider Dr. Jesse Khan DO Referring Provider [phone] Jesse Khan Referring Unavailable Jesse Khan Attending Unavailable Jesse Khan Primary Care Unavailable ErinJesse shankar Referring Unavailable Erin, Jesse Attending Unavailable Erin, Jesse Primary Care Unavailable Erin, Jesse Referring Unavailable Erin, Jesse Primary Care Unavailable Isabel MAIL DELIVERER, Dana Attending Unavailable Erin, Jesse Referring Unavailable Erin, Jesse Attending Unavailable Erin, Jesse Primary Care Unavailable Erin, Jesse Primary Care Unavailable Isabel MAIL DELIVERER, Dana Referring Unavailable Isabel MAIL DELIVERER, Dana Attending Unavailable Erin, Jesse Referring Unavailable Erin, Jesse Attending Unavailable Erin, Jesse Primary Care Unavailable Erin, Jesse Primary Care Unavailable Erin, Jesse Referring Unavailable Erin, Jesse Attending Unavailable Erin, Jesse Primary Care Unavailable Erin, Jesse Referring Unavailable Erin, Jesse Attending Unavailable Allergies Allergy Classification Reported Allergen(s) Allergy Type Date of Onset Reaction(s) Facility (10 sources) COVID-19 (SARS-CoV-2) vaccine, annmarie; Translations: [COVID-19 (SARS-CoV-2) vaccine, annmarie] Propensity to adverse reactions 04-03-2022 [facility] Medications Current Medications Medication Drug Class(es) Dates Sig (Normalized) Sig (Original) [id number] 200 actuat albuterol 0.09 mg/actuat metered dose inhaler (9 sources) beta2-Adrenergic Agonist Start: 04-03-2022 Albuterol Sulfate 90 mcg/actuation HFA aerosol inhaler Active 2 NMA INHALATION EVERY 6 HOURS as needed for Shortness Of Breath April 03, 2022 1:00am Start: 04-03-2022 take 1 puff(s) by in halation every six hours Albuterol Sulfate Active 2 PUFF INHALATION EVERY 6 HOURS April 03, 2022 1:00am Ascorbic Acid (1 source) Vitamin C ascorbic acid (V ITAMIN C ORAL) Take by mouth . 0 Active cholecalciferol, vitamin D3, (VITAMIN D3 ORAL) (1 source) cholecalciferol, vitamin D3, (VITAMIN D3 ORAL) Take by mouth . 0 Active 1 ml denosumab 60 mg/ml prefilled syringe (11 sources) RANK Ligand Inhibitor Start: 10-14-2018 Denosumab (Prolia) 60 mg/mL syringe Active 60 mg SC every 6 months October 14, 2018 12:00am estradiol 0.1 mg/ml vaginal cream (20 sources) Estrogen Start: 04-14-2024 Estradiol 0.01 % (0.1 mg/gram) cream Active 0 VAGINAL .COMPLEX 42.5 April 14, 2024 11:44am small amount as directed vaginal twice a week; Start: 04-12-2023 End: 04-14-2024 Estradiol 0.01 % (0.1 mg/gra m) cream Discontinued 0 VAGINAL .COMPLEX 42.5 April 12, 2023 1:00am April 14, 2024 11:44am small amount as directed vaginal every other day X 4 weeks then twice a week; Start: 04-12-2023 Estradiol Acti ve 0 VAGINAL .COMPLEX 42.5 April 12, 2023 1:00am small amount as directed vaginal every other day X 4 weeks then twice a week; Start: 04-10-2021 End: 04-12-2023 Estradiol (Yuvafem) 10 mcg t ablet Discontinued 10 ug VAGINAL .COMPLEX 36 April 10, 2023 11:06am April 12, 2023 2:32pm 10 mcg vaginally 3 nights per week; Start: 04-10-2021 End: 04-12-2023 Estradiol (Yuvafem) 10 mcg t ablet Discontinued 10 MCG VAGINAL .COMPLEX 36 April 10, 2023 11:06am April 12, 2023 2:32pm 10 mcg vaginally 3 nights per week; estradioL (VAGIF EM) 10 mcg Tab Insert 10 mcg into the vagina every other day . 0 Active fluticasone propionate 0.05 mg/actuat metered dose nasal spray (11 sources) Corticosteroid Start: 04-10-2021 Fluticasone Pr opionate 50 mcg/actuation spray,suspension Active 2 NMA INTRANASAL DAILY April 10, 2021 1:00am Start: 04-10-2021 Fluticasone Pr opionate Active 2 SPRAY INTRANASAL DAILY April 10, 2021 1:00am Fluticasone Furoate-Vilanterol (11 sources) Corticosteroid, beta2-Adrenergic Agonist Start: 10-14-2018 Fluticasone Furoate-Vilanterol (Breo Ellipta) 200-25 mcg/dose blister with device Active 1 INH INHALATION DAILY October 14, 2018 3:35pm Start: 10-14-2018 Fluticasone Fu roate-Vilanterol (Breo Ellipta) 200-25 mcg/dose blister with device Active 1 NMA INHALATION DAILY October 14, 2018 12:00am Start: 10-14-2018 Fluticasone Fu roate-Vilanterol (Breo Ellipta) 200-25 mcg/dose blister with device Active 1 INH INHALATION DAILY October 13, 2018 11:00pm Start: 10-14-2018 Fluticasone Fu roate-Vilanterol (Breo Ellipta) 200-25 mcg/dose blister with device Active 1 INH INHALATION DAILY October 14, 2018 12:00am lansoprazole 15 mg delayed release oral capsule (12 sources) Proton Pump Inhibitor Start: 10-14-2018 take 1 capsule by mouth twice daily Lansoprazole (Prevacid) 15 mg capsule,delayed release(DR/EC) Active 15 mg PO TWICE A DAY October 14, 2018 12:00am Start: 11-02-2008 lansoprazole ( Prevacid) 30 MG capsule Take by mouth . 0 11/02/2008 Active 24 hr oxybutynin chloride 10 mg extended release oral tablet (20 sources) Cholinergic Muscarinic Antagonist Start: 04-10-2023 End: 07-01-2024 take 1 tablet by mouth once daily Oxybutynin Chloride 10 mg tablet extended release 24hr Active 10 mg PO DAILY July 01, 2024 5:00pm Start: 04-10-2021 End: 04-10-2023 take 1 tablet by mouth once daily Oxybutynin Chloride 5 mg tablet extended release 24hr Discontinued 5 mg PO DAILY April 03, 2022 4:03pm April 10, 2023 11:06am Prucalopride (Motegrity) 2 mg tablet (2 sources) Start: 07-25-2024 take 1 tablet by mouth once daily Prucalopride (Motegrity) 2 mg tablet Active 2 mg PO DAILY July 25, 2024 12:00am prucalopride succinate (MOTEGRITY ORAL) (1 source) prucalopride suc cinate (MOTEGRITY ORAL) Take by mouth . 0 Active Completed/Discontinued Medications Medication Drug Class(es) Dates Sig (Normalized) Sig (Original) amitriptyline hydrochloride 10 mg oral tablet (4 sources) Tricyclic Antidepressant Start: 04-10-2023 End: 04-10-2024 take 1 tablet by mouth at bedtime as needed Amitriptyline 10 mg tablet Discontinued 10 mg PO AT BEDTIME as needed April 10, 2023 1:00am July 25, 2023 11:38am ketorolac tromethamine 10 mg oral tablet (11 sources) Nonsteroidal Anti-inflammatory Drug, Cyclooxygenase Inhibitor Start: 04-10-2021 End: 04-03-2022 take 1 tablet by mouth every eight hours as needed for pain Ketorolac 10 mg tablet Discontinued 10 mg PO Q8H as needed for pain 15 5 April 10, 2021 1:00am April 03, 2022 3:38pm linaclotide 0.29 mg oral capsule (3 sources) Guanylate Cyclase-C Agonist Start: 07-25-2023 End: 07-25-2024 take 1 capsule by mouth once daily Linaclotide (Linzess) 290 mcg capsule Discontinued 290 ug PO DAILY July 25, 2023 12:00am July 25, 2024 9:51am methylPREDNISolone acetate 40 mg/ml injectable suspension (3 sources) Corticosteroid Start: 04-04-2019 End: 04-04-2019 Depo-Medrol (methylprednisolo ne acetate) 40 mg/mL suspension for injection Discontinued 20 MG INTRAARTIC ONCE 0.5 April 04, 2019 10:01am April 04, 2019 10:47am Start: 12-23-2018 End: 12-23-2018 Depo-Medrol (methylprednisol one acetate) 40 mg/mL suspension for injection Discontinued 40 MG INTRAARTIC ONCE 1 December 23, 2018 3:36pm December 23, 2018 4:13pm Start: 09-16-2018 End: 09-16-2018 Depo-Medrol (methylprednisol one acetate) 40 mg/mL suspension for injection Discontinued 40 MG INTRAARTIC ONCE 1 September 16, 2018 3:22pm September 16, 2018 4:22pm naproxen 500 mg oral tablet (11 sources) Nonsteroidal Anti-inflammatory Drug Start: 09-16-2018 End: 04-04-2019 take 1 tablet by mouth twice daily Naproxen 500 mg tablet Discontinued 500 mg PO TWICE A DAY 60 September 16, 2018 12:00am April 04, 2019 12:31pm do not take with other NSAIDS prucalopride 2 mg oral tablet (11 sources) Start: 04-10-2021 End: 04-10-2023 take 1 tablet by mouth once daily Prucalopride (Motegrity) 2 mg tablet Discontinued 2 mg PO DAILY April 10, 2021 1:00am April 10, 2023 10:55am 1 ml triamcinolone acetonide 40 mg/ml injection (1 source) Corticosteroid Start: 01-05-2020 End: 01-05-2020 triamcinolone acetonide (KENALOG-40) injection 40 mg Problems Active Problems Problem Classification Problem Date Documented Da te Episodic/Chronic Abdominal hernia (9 sources) Hiatal hernia; Translations: [Diaphragmatic hernia without obstruction or gangrene] 04-03-2022 Episodic Asthma (9 sources) Asthma; Translations: [Unspecified asthma, uncomplicated] 04-03-2022 Chronic Headache; including migraine (11 sources) Headache; Translations: [Headache] 04-18-2021 Episodic Headache; including migraine (1 source) Headache; including migraine; Translations: [Headache, unspecified] Onset: 09-11-2024 Menopausal disorders (15 sources) Atrophic vaginitis; Translations: [Postmenopausal atrophic vaginitis] Chronic Comment on above: estrogen cream Nonmalignant breast conditions (6 sources) Breast lump; Translations: [Unspecified lump in the right breast, unspecified quadrant] 04-10-2023 Episodic Other bone disease and musculoskeletal deformities (10 sources) Osteopenia; Translations: [Other specified disorders of bone density and structure, unspecified site] 04-03-2022 Episodic Comment on above: prolia per PCP Other bone disease and musculoskeletal deformities (6 sources) Other specified disorders of bone density and structure, unspecified site; Translations: [Disorder of bone and cartilage, unspecified] Onset: 07-31-2024 Episodic Other connective tissue disease (1 source) Medial epicondylitis of right humerus; Translations: [Medial epicondylitis of right elbow] Other diseases of bladder and urethra (9 sources) Overactive bladder; Translations: [Overactive bladder] 04-03-2022 Chronic Comment on above: oxybutinin Other diseases of bladder and urethra (5 sources) Overactive bladder; Translations: [Hypertonicity of bladder] Chronic Other gastrointestinal disorders (9 sources) Bowel problem; Translations: [Disease of intestine, unspecified] 04-03-2022 Episodic Other hematologic conditions (1 source) Other specified diseases of blood and blood-forming organs; Translations: [Other specified diseases of blood and blood-forming organs] Onset: 01-14-2024 Chronic Other skin disorders (11 sources) Eruption; Translations: [Rash and other nonspecific skin eruption] 04-18-2021 Episodic Past or Other Problems Problem Classification Problem Date Documented Da te Episodic/Chronic Malaise and fatigue (1 source) Other fatigue; Translations: [Other fatigue] Onset: 05-08-2024 Episodic Other screening for suspected conditions (not mental disorders or infectious disease) (1 source) Encounter for screening mammogram for malignant neoplasm of breast; Translations: [Encounter for screening mammogram for malignant neoplasm of breast] Onset: 06-06-2024 Episodic Results Test Name Value Interpretation Reference Range Facility Brain/Head W/WO Contraston 0 09-04-2024 Brain/Head W/WO Contrast [facility] Imaging Services [address] [place] [address] [id number] Brain/Head W/WO Contrast MR#: [id number] Acct: [id number] Name: NICHOLE ELMORE Rep #: [id number] : 1960 F 64 From: Stephen Garner PCP: Dr. Jesse Khan DO Status: REG CLI Study: Brain/Head W/WO Contrast Date of Exam: 5 Exam# [id number] Ordering Dr: Jesse Khan DO PROCEDURE: BRAIN/HEAD W/WO CONTRAST 09/04/2024 REASON FOR EXAM: NEW ONSENT INTRACTABLE HEADACHES TECHNIQUE: Head CT before and following intravenous contrast. Coronal and Sagittal reconstruction series were provided. CONTRAST: Isovue 370 VOLUME: 47 mL IV One or more dose reduction techniques were used (e.g., Automated exposure control, adjustment of the mA and/or kV according to patient size, use of iterative reconstruction technique). RADIATION DOSE SUMMARY: DLP: 1479.73 mGycm COMPARISON: None. FINDINGS: Acute findings: No intracranial hemorrhage, mass, or mass effect is seen Brain: Normal. No orbital pathology is seen Postcontrast images: No area of abnormal postcontrast enhancement is seen CSF Spaces: Normal Sinuses/Mastoids: Clear at visualized levels Bones: No acute osseous process is seen CT/Brain/Head W/WO Contrast IMPRESSION: No significant abnormality is identified. Reading Location: [address] CC: Dr. Jesse Khan DO Emergency Room Physician Assistant: Signed Normal [facility] CRPon 08-07-2024 C-REACTIVE PROT < 3.00 Normal 0.0-3.[address] [facility] Comment on above: Performed By: #### L 101.9900, L501.6710 #### [facility] Laboratory [address] [place], [address] Erythrocyte Sed Rateon 08-07 SED RATE 4 mm/hr Normal 0-[address] [facility] Comment on above: Performed By: #### L 101.9900, L501.6710 #### [facility] Laboratory [address] [place], [address] Erythrocyte sedimentation ra teOrdered By: Jesse Khan on 08-07-2024 ESR (Bld) [Velocity] 4 mm/h 0-30 [facility] Serum or plasma C reactive p rotein measurement (mass/volume)Ordered By: Jesse Khan on 08-07-2024 CRP [Mass/Vol] mg/L 0.0-3.[address] [facility] Dexa Bone Density Studyon Dexa Bone Density Study [facility] Imaging Services [address] [place], [place] [id number] Dexa Bone Density Study MR#: [id number] Acct: [id number] Name: NICHOLE ELMORE Rep #: [id number] : 1960 F 63 From: Maynor Ferguson i, DO PCP: Dr. Jesse Khan DO Status: REG CLI Study: Dexa Bone Density Study Date of Exam: 05/21/24 Exam# [id number] Ordering Dr: Dana Hall MAIL DELIVERER MAIL DELIVERER -C PROCEDURE: DEXA BONE DENSITY STUDY REASON FOR EXAM: 63-year-old female. Osteoporosis screening. TECHNIQUE: DEXA scan of the lumbar spine and both hips. COMPARISON: 07/05/2021 FINDINGS: T-SCORES Lumbar spine: T-score -2.0. Bone mineral density 0.829 g per cm2. (Prior T-score -1.7. 4.2% decreased bone mineral density from the previous study.) Left hip: Femoral neck T-score -1.0. Total femoral neck T-score of -0.7. Bone mineral density 0.42 g per cm2. (Prior T-score -1.1. 5% increased bone mineral density from the previous study.) Right hip: Total right femur and femoral neck T-score -1.1 (right femoral neck bone mineral density 0.722 g per cm2.) prior T-score -1.0. No significant interval change. FRAX* Results: 10 Year Probability of Fracture: Hip Fracture(1): 2.1% Major Osteoporotic Fracture(2): 22% *FRAX is a trademark of the [employer]'s [employer] for Metabolic Bone Disease, World Health Organization (WHO) Collaborating [place]. 1-The 10-year probability of fracture may be lower than reported if the patient has received treatment. 2-Major Osteoporotic Fracture: Clinical Spine, Forearm, Hip or Shoulder. The T-scores are also available for review on the [facility] PACS or by accessing the [facility] electronic medical record. BD/Dexa Bone Density Study IMPRESSION: Osteopenia. Reading Location: [facility] CC: BHARTI Hall; Dr. Jesse Khan DO Emergency Room Physician Assistant: Signed Normal [facility] SCRN MAMM (CAD)W/RAY BILATo n 05-21-2024 SCRN MAMM (CAD)W/RAY BILAT [facility] Imaging Services [address] [place], [place] [id number] SCRN MAMM (CAD)W/RAY BILAT MR#: [id number] Acct: [id number] Name: NICHOLE ELMORE Rep #: [id number] : 1960 F 63 From: Angelo gil MD PCP: Dr. Jesse Khan, Status: REG CLI Study: SCRN MAMM (CAD)W/RAY BILAT Date of Exam: 09/07 Exam# [id number] Ordering Dr: Dana Hall NP, NP PROCEDURE: SCRN MAMM (CAD)W/RAY BILAT REASON FOR EXAM: F, Age 63 y/o, aunts with breast cancer. TECHNIQUE: Bilateral screening digital breast tomosynthesis with 2D and 3D images. Computer aided detection. COMPARISON: Prior exam(s) dating back to April 18, 2023.. FINDINGS: The breasts are heterogeneously dense which may obscure small masses. Stable examination. No suspicious masses, areas of developing architectural distortion, or suspicious calcifications. BI/SCRN MAMM (CAD)W/RAY BILAT IMPRESSION: BI-RADS 2: BENIGN. RECOMMEND ANNUAL MAMMOGRAPHIC SCREENING. Follow-up code: Routine Follow-up The patient will be notified of the results by letter. Reading Location: [place] [address] CC: BHARTI Hall; Dr. Jesse Khan DO Emergency Room Physician Assistant: Signed Normal 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) Chief Complaint: Annual Direct Mail Manager Required: No Is patient in pain?: No Allergies COVID-19 (SARS-CoV-2) vaccine, annmarie Adverse Reaction (Mild, Verified 04/14/24 10:19) welts Medications ???Medication ???Instructions ???Recorded ???Confirmed ???Type denosumab 60 mg/mL subcutaneous 60 mg subcut [id number] 10/14/18 04/14/24 History syringe (Prolia) fluticasone furoate 200 1 inh inhalation DAILY 10/14/18 04/14/24 History mcg-vilanterol 25 mcg/dose inhalation powder (Breo Ellipta) lansoprazole 15 mg capsule,delayed 15 mg PO BID 10/14/18 04/14/24 History release (Prevacid) fluticasone propionate 50 2 spray intranasal DAILY 04/10/21 04/14/24 History mcg/actuation nasal spray,suspension albuterol sulfate 90 mcg/actuation 2 puff inhalation Q6H PRN 04/03/22 04/14/24 History aerosol inhaler Shortness Of Breath oxybutynin chloride 10 mg 10 mg PO DAILY #90 tabs 04/10/23 04/14/24 Rx tablet,extended release 24 hr linaclotide 290 mcg capsule 290 mcg PO DAILY 07/25/23 04/14/24 History (Linzess) estradiol 0.01% (0.1 mg/gram) See Rx Instructions vaginal 04/14/24 04/14/24 Rx vaginal cream .COMPLEX #42.5 grams Is last menstrual period known: No Post menopausal: Yes Patient : No : No PFSH Medical History Abnormal Pap smear of cervix Surgical History History of carpal tunnel surgery of right wrist S/P LASIK surgery Status post colposcopy History of tonsillectomy Hx of right knee surgery History of arthroplasty of finger of left hand Family History Father Diabetes Cancer skin Sister Lupus (systemic lupus erythematosus) Mother Congestive heart failure (CHF) Pulmonary fibrosis Social History Smoking Status: Never smoker alcohol intake: current details: occasionally substance use type: does not use caffeine: Yes what type of physical activity do you participate in: bicycling and weight training frequency: 3-4 times per week seatbelt use: always do you feel safe at home: Yes additional social history: - Jesse History 3 Elective abortions Hx Para 2 Spontaneous abortions Hx # Term Pregnancies Ectopic pregnancies Hx # Pregnancies Multiple births # of living children Past Pregnancies Del. Date Name GA/Weeks Outcome Route Bth Weight Gen Labor Lgth Anesthesia Del [facility] Provider FOB Unknown Emily Zepeda HPI Encounter for routine gynecological examination Details: NICHOLE ELMORE is a 63 year old who presents for annual exam. Feels fullness in right axilla. Needs BMD. Still on prolia per PCP Last PAP: 2021 History of abnormal PAP: no Last mammogram: 04/2023 History of abnormal mammogram: no Colon cancer screening: Leatha/close to 10 yr Other preventative health care screenings: Erin Female Reproductive History Questions: metorrhagia: No, sexually active: Yes, dyspareunia: No and PCB: No ROS Const Constitutional: Denies fatigue, weight gain or weight loss Cardio Card: Denies chest pain Resp Resp: Denies cough or dyspnea on exertion GI GI: Denies abdominal pain, bloating, change in stool character, constipation or vomiting : Reports as per HPI; Denies difficulty voiding, pelvic pain, urinary frequency, urinary incontinence, urinary urgency, vaginal discharge or vaginal pruritus Exam Const General: cooperative, healthy appearing, no acute distress and well developed Orientation: alert, oriented to person and oriented to place HENOH Head: normal to inspection Neck Neck: normal visual inspection Thyroid: thyroid normal Lymphatic: no lymphadenopathy noted Chest Breast inspection: normal inspection of the breasts and normal inspection of the axillae Breast palpation: normal palpation of the breasts, normal palpation of the axillae and no axillary lymphadenopathy Resp Effort Inspection: normal respiratory effort GI Palpation: soft, no masses and nontender Rectal Exam: deferred External Female Exam: normal external appearance and normal appearance o (more content not included)... Normal [facility] Direct serum free thyroxine (FT4) measurementOrdered By: Jesse Khan on 04-07-2024 Free T4 [Mass/Vol] 1.01 ng/dL 0.76-1.46 [facility] T4 Free Directon 04-07-2024 T4 FREE DIRECT 1.01 ng/dL Normal 0.76-1.[address] [facility] Comment on above: Performed By: #### L 506.0400, L501.9520 #### [facility] Laboratory [address] [place], [address] TSH QnOrdered By: Jesse aragon on 04-07-2024 Thyroid Stimulating Hormone (TSH) 1.190 uIU/mL 0.358-3.[address] [facility] Thyroid Stim Hormone (TSH)on 04-07-2024 TSH 1.190 uIU/mL Normal 0.358-3.[address] [facility] Comment on above: Performed By: #### L 506.0400, L501.9520 #### [facility] Laboratory [address] [place], [address] CBC W/Diff, Automatedon 12-15-2023 Absolute Lymph 1.96 X10 3/uL Normal 0.83-4.[address] [facility] Comment on above: Performed By: #### L 100.0100, L500.4050, L500.4100, L506.1000, L503.0105 #### [facility] [address] [place], [address] Absolute Neut 2.8 X10 3/uL Normal 2.0-7.[address] [facility] Comment on above: Performed By: #### L 100.0100, L500.4050, L500.4100, L506.1000, L503.0105 #### [facility] [address] [place], [address] Basophils/100 WBC (Bld) 0.4 % Normal 0-1 [facility] Comment on above: Performed By: #### L 100.0100, L500.4050, L500.4100, L506.1000, L503.0105 #### [facility] [address] [place], [address] Eosinophils/100 WBC (Bld) 1.7 % Normal 0-[address] [facility] Comment on above: Performed By: #### L 100.0100, L500.4050, L500.4100, L506.1000, L503.0105 #### [facility] Laboratory [address] [place], [address] Erythrocyte distribution width (RBC) [Ratio] 12.3 % Normal 11.6-14.[address] [facility] Comment on above: Performed By: #### L 100.0100, L500.4050, L500.4100, L506.1000, L503.0105 #### [facility] [address] [place], [address] Hematocrit (Bld) [Volume fraction] 41.5 % Normal 37-[address] [facility] Comment on above: Performed By: #### L 100.0100, L500.4050, L500.4100, L506.1000, L503.0105 #### [facility] [address] [place], [address] Hemoglobin (Bld) [Mass/Vol] 14.1 g/dL Normal 12.0-15.[address] [facility] Comment on above: Performed By: #### L 100.0100, L500.4050, L500.4100, L506.1000, L503.0105 #### [facility] [address] [place], [address] IG% 0.600 Normal 0.0-0.[address] [facility] Comment on above: Result Comment: IG% - Immature Granulocytes (promyelocytes, myelocytes and metamyelocytes) > 1% indicates that a LEFT SHIFT is Present. Performed By: #### L 100.0100, L500.4050, L500.4100, L506.1000, L503.0105 #### [facility] [address] [place], [address] Lymphocytes/100 WBC (Bld) 36.4 % Normal 19-[address] [facility] Comment on above: Performed By: #### L 100.0100, L500.4050, L500.4100, L506.1000, L503.0105 #### [facility] [address] [place], [address] MCH (RBC) [Entitic mass] 34.4 pg High 27.0-32.[address] [facility] Comment on above: Performed By: #### L 100.0100, L500.4050, L500.4100, L506.1000, L503.0105 #### [facility] [address] [place], [address] MCHC (RBC) [Mass/Vol] 34.0 g/dL Normal 32-36 [facility] Comment on above: Performed By: #### L 100.0100, L500.4050, L500.4100, L506.1000, L503.0105 #### [facility] [address] [place], [address] MCV (RBC) [Entitic vol] 101.2 fL High 81-99 [facility] Comment on above: Performed By: #### L 100.0100, L500.4050, L500.4100, L506.1000, L503.0105 #### [facility] [address] [place], [address] Monocytes/100 WBC (Bld) 9.6 % Normal 0-10 [facility] Comment on above: Performed By: #### L 100.0100, L500.4050, L500.4100, L506.1000, L503.0105 #### [facility] [address] [place], [address] Neutrophils/100 WBC (Bld) 51.3 % Normal 47-[address] [facility] Comment on above: Performed By: #### L 100.0100, L500.4050, L500.4100, L506.1000, L503.0105 #### [facility] [address] [place], [address] Nucleated RBC (Bld) [#/Vol] 0 10*3/uL Normal 0-[address] [facility] Comment on above: Performed By: #### L 100.0100, L500.4050, L500.4100, L506.1000, L503.0105 #### [facility] [address] [place], [address] Platelet mean volume (Bld) [Entitic vol] 10.7 fL Normal 6.2-12.[address] [facility] Comment on above: Performed By: #### L 100.0100, L500.4050, L500.4100, L506.1000, L503.0105 #### [facility] [address] [place], [address] Platelets (Bld) [#/Vol] 234 10*3/uL Normal 150-[address] [facility] Comment on above: Performed By: #### L 100.0100, L500.4050, L500.4100, L506.1000, L503.0105 #### [facility] [address] [place], [address] RBC (Bld) [#/Vol] 4.10 10*6/uL Low 4.2-5.4 [facility] Comment on above: Performed By: #### L 100.0100, L500.4050, L500.4100, L506.1000, L503.0105 #### [facility] [address] [place], [address] RDW SD 46.1 fl High 35.1-43.[address] [facility] Comment on above: Performed By: #### L 100.0100, L500.4050, L500.4100, L506.1000, L503.0105 #### [facility] [address] [place], [address] WBC (Bld) [#/Vol] 5.4 10*3/uL Normal 4.4-11.0 [facility] Comment on above: Performed By: #### L 100.0100, L500.4050, L500.4100, L506.1000, L503.0105 #### [facility] [address] [place], [address] Comprehensive Metabolic Prof ilon 12-25-2023 Albumin [Mass/Vol] 3.8 g/dL Normal 3.2-5.0 [facility] Comment on above: Performed By: #### L 100.0100, L500.4050, L500.4100, L506.1000, L503.0105 #### [facility] [address] [place], [address] Albumin/Globulin [Mass ratio] 1.3 {ratio} Normal 0.9-2.[address] [facility] Comment on above: Performed By: #### L 100.0100, L500.4050, L500.4100, L506.1000, L503.0105 #### [facility] [address] [place], [address] ALK P 57 U/L Normal 45-[address] [facility] Comment on above: Performed By: #### L 100.0100, L500.4050, L500.4100, L506.1000, L503.0105 #### [facility] [address] [place], [address] ALT [Catalytic activity/Vol] 17 U/L Normal 13-[address] [facility] Comment on above: Performed By: #### L 100.0100, L500.4050, L500.4100, L506.1000, L503.0105 #### [facility] [address] [place], [address] AST [Catalytic activity/Vol] 8 U/L Low 15-[address] [facility] Comment on above: Performed By: #### L 100.0100, L500.4050, L500.4100, L506.1000, L503.0105 #### [facility] [address] [place], [address] Bilirubin [Mass/Vol] 0.60 mg/dL Normal 0.20-1.00 [facility] Comment on above: Result Comment: For patients on eltrombopag therapy, use of Dimension [place] TBIL is not recommended. Performed By: #### L 100.0100, L500.4050, L500.4100, L506.1000, L503.0105 #### [facility] [address] [place], [address] BUN/CRE 19.0 RATIO Normal 10-[address] [facility] Comment on above: Performed By: #### L 100.0100, L500.4050, L500.4100, L506.1000, L503.0105 #### [facility] [address] [place], [address] CA,Total 9.3 mg/dL Normal 8.5-10.[address] [facility] Comment on above: Performed By: #### L 100.0100, L500.4050, L500.4100, L506.1000, L503.0105 #### [facility] [address] [place], [address] Chloride [Moles/Vol] 106 mmol/L Normal 98-107 [facility] Comment on above: Performed By: #### L 100.0100, L500.4050, L500.4100, L506.1000, L503.0105 #### [facility] [address] [place], [address] CO2 [Moles/Vol] 27.0 mmol/L Normal 21.0-32.[address] [facility] Comment on above: Performed By: #### L 100.0100, L500.4050, L500.4100, L506.1000, L503.0105 #### [facility] [address] [place], [address] Creatinine [Mass/Vol] 0.74 mg/dL Normal 0.55-1.02 [facility] Comment on above: Result Comment: The validity of the calculated GFR GFRAA in patients over 70 years has not been determined. Clinical correlation is essential. Performed By: #### L 100.0100, L500.4050, L500.4100, L506.1000, L503.0105 #### [facility] [address] [place], [address] EST GFR - AA 102 mL/min Normal >[address] [facility] Comment on above: Result Comment: Afri can Faroese GFR Calc Performed By: #### L 100.0100, L500.4050, L500.4100, L506.1000, L503.0105 #### [facility] [address] [place], [address] GAP 6 Normal 5-[address] [facility] Comment on above: Performed By: #### L 100.0100, L500.4050, L500.4100, L506.1000, L503.0105 #### [facility] [address] [place], [address] GFR/1.73 sq M.predicted among non-blacks MDRD (S/P/Bld) [Vol rate/Area] 84 mL/min/{1.73_m2} Normal >[address] [facility] Comment on above: Result Comment: Non- GFR Calc Performed By: #### L 100.0100, L500.4050, L500.4100, L506.1000, L503.0105 #### [facility] [address] [place], [address] Globulin (S) [Mass/Vol] 2.9 g/dL Normal 2.2-4.2 [facility] Comment on above: Performed By: #### L 100.0100, L500.4050, L500.4100, L506.1000, L503.0105 #### [facility] [address] [place], [address] Glucose [Mass/Vol] 96 mg/dL Normal 74-106 [facility] Comment on above: Performed By: #### L 100.0100, L500.4050, L500.4100, L506.1000, L503.0105 #### [facility] [address] [place], [address] Potassium [Moles/Vol] 3.9 mmol/L Normal 3.5-5.1 [facility] Comment on above: Performed By: #### L 100.0100, L500.4050, L500.4100, L506.1000, L503.0105 #### [facility] [address] [place], [address] Sodium [Moles/Vol] 139 mmol/L Normal 136-145 [facility] Comment on above: Performed By: #### L 100.0100, L500.4050, L500.4100, L506.1000, L503.0105 #### [facility] [address] [place], [address] T PROT 6.7 g/dL Normal 6.4-8.[address] [facility] Comment on above: Performed By: #### L 100.0100, L500.4050, L500.4100, L506.1000, L503.0105 #### [facility] [address] [place], [address] Urea nitrogen [Mass/Vol] 14 mg/dL Normal 7-[address] [facility] Comment on above: Performed By: #### L 100.0100, L500.4050, L500.4100, L506.1000, L503.0105 #### [facility] [address] [place], [address] Lipid Profileon 12-25-2023 Cholesterol [Mass/Vol] 175 mg/dL Normal 200 [facility] Comment on above: Result Comment: <200 mg/dL Desirable 200-240 mg/dL Borderline >240 mg/dL High Risk Performed By: #### L 100.0100, L500.4050, L500.4100, L506.1000, L503.0105 #### [facility] [address] [place], [address] Cholesterol in HDL [Mass/Vol] 69 mg/dL Normal [facility] Comment on above: Result Comment: The drugs N-Acetylcysteine and Metamizole may falsely depress this assay. Reference Range HDL <40 mg/dL Low HDL Cholesterol HDL >or= 60 mg/dL High HDL Cholesterol Performed By: #### L 100.0100, L500.4050, L500.4100, L506.1000, L503.0105 #### [facility] [address] [place], [address] Cholesterol in LDL [Mass/Vol] 87 mg/dL Normal 0-[address] [facility] Comment on above: Performed By: #### L 100.0100, L500.4050, L500.4100, L506.1000, L503.0105 #### [facility] [address] [place], [address] Cholesterol in VLDL [Mass/Vol] 19 mg/dL Normal 5-[address] [facility] Comment on above: Performed By: #### L 100.0100, L500.4050, L500.4100, L506.1000, L503.0105 #### [facility] [address] [place], [address] Triglyceride [Mass/Vol] 93 mg/dL Normal [facility] Comment on above: Result Comment: The drugs N-Acetylcysteine and Metamizole may falsely depress this assay. Serum Triglycerides Reference Interval Normal <150 mg/dL Borderline high 150 - 199 mg/dL High 200 - 499 mg/dL Very High > or = 500 mg/dL Performed By: #### L 100.0100, L500.4050, L500.4100, L506.1000, L503.0105 #### [facility] [address] [place], [address] Vitamin B12on 12-25-2023 Cobalamin (Vitamin B12) [Mass/Vol] 517 pg/mL Normal 211-[address] [facility] Comment on above: Performed By: #### L 100.0100, L500.4050, L500.4100, L506.1000, L503.0105 #### [facility] [address] [place], [address] Vitamin D,25 Hydroxyon 12-24 Vitamin D 25-OH 50.1 ng/mL Normal [facility] Comment on above: Result Comment: Ofelia min D 25(OH) Status Range Deficiency <20 ng/mL (50nmol/L) Insufficiency 20 - 30 ng/mL (50 - 75 nmol/L) Sufficiency 30 - 100 ng/mL (75 - 250 nmol/L) Toxicity >100 ng/mL (>250 nmol/L) Performed By: #### L 100.0100, L500.4050, L500.4100, L506.1000, L503.0105 #### [facility] [address] [place], [address] Absolute lymphocyte countOrd ered By: Jesse Khan on 12-27-2022 Lymphocytes Auto (Unsp spec) [#/Vol] 2.42 10*3/uL 0.83-4.[address] [facility] Basophil percentageOrdered B y: Jesse Khan on 12-27-2022 Basophils/100 WBC (Bld) 0.5 % 0-1 [facility] Bilirubin [Mass/Vol] 0.30 mg/dL 0.20-1.00 [facility] Comment on above: For patients on eltr ombopag therapy, use of Dimension [place] TBIL is not recommended. Chloride [Moles/Vol] 103 mmol/L 98-107 [facility] Cholesterol [Mass/Vol] 209 mg/dL <200 [facility] Comment on above: <200 mg/dL Desirable 200-240 mg/dL Borderline >240 mg/dL High Risk Eosinophils/100 WBC (Bld) 2.8 % 0-[address] [facility] Glucose [Mass/Vol] 99 mg/dL 74-106 [facility] Neutrophils (Bld) [#/Vol] 2.5 10*3/uL 2.0-7.[address] [facility] Neutrophils/100 WBC (Bld) 43.7 % 47-[address] [facility] Potassium [Moles/Vol] 3.9 mmol/L 3.5-5.1 [facility] Protein [Mass/Vol] 7.0 g/dL 6.4-8.2 [facility] Sodium [Moles/Vol] 136 mmol/L 136-145 [facility] Triglyceride [Mass/Vol] 72 mg/dL <199 [facility] Comment on above: The drugs N-Acetylcy steine and Metamizole may falsely depress this assay.Serum Triglycerides Reference Interval Normal <150 mg/dL Borderline high 150 - 199 mg/dL High 200 - 499 mg/dL Very High > or = 500 mg/dL WBC (Bld) [#/Vol] 5.6 10*3/uL 4.4-11.0 [facility] Blood erythrocytes count (nu mber/volume)Ordered By: Jesse Khan on 12-27-2022 RBC (Bld) [#/Vol] 4.34 10*6/uL 4.2-5.4 [facility] Blood hemoglobin measurement (mass/volume)Ordered By: Jesse Khan on 12-27-2022 Hemoglobin (Bld) [Mass/Vol] 15.4 g/dL 12.0-15.[address] [facility] Blood lymphocytes/100 leukoc ytesOrdered By: Jesse Khan on 12-27-2022 Lymphocytes/100 WBC (Bld) 43.0 % 19-[address] [facility] Blood monocytes/100 leukocyt esOrdered By: Jesse Khan on 12-27-2022 Monocytes/100 WBC (Bld) 9.1 % 0-10 [facility] Blood platelet mean volumeOr dered By: Jesse Khan on 12-27-2022 Platelet mean volume (Bld) [Entitic vol] 10.4 fL 6.2-12.[address] [facility] Determination of erythrocyte mean corpuscular volume (MCV)Ordered By: Jesse Khan on 12-27-2022 MCV (RBC) [Entitic vol] 102.1 fL 81-99 [facility] Hematocrit Auto (Bld) [Volum e fraction]Ordered By: Jesse Khan on 12-27-2022 Hematocrit (Bld) [Volume fraction] 44.3 % 37-[address] [facility] - Chemistry and C hemistry - challengeOrdered By: Jesse Khan on 12-27-2022 ALP [Catalytic activity/Vol] 65 U/L 45-[address] [facility] ALT [Catalytic activity/Vol] 23 U/L 13-[address] [facility] CO2 [Moles/Vol] 30.0 mmol/L 21.0-32.[address] [facility] Globulin (S) [Mass/Vol] 3.3 g/dL 2.2-4.2 [facility] Urea nitrogen/Creatinine [Mass ratio] 22.2 mg/mg 10-[address] [facility] - Hematology and Cell countsOrdered By: Jesse Khan on 12-27-2022 Erythrocyte distribution width (RBC) [Entitic vol] 46.2 fL 35.1-43.[address] [facility] Erythrocyte distribution width (RBC) [Ratio] 12.3 % 11.6-14.[address] [facility] Immature granulocytes/100 WBC (Bld) 0.900 % 0.0-0.[address] [facility] Comment on above: IG% - Immature Granu locytes (promyelocytes, myelocytes and metamyelocytes) > 1% indicates that a LEFT SHIFT is Present. MCH (RBC) [Entitic mass] 35.5 pg 27.0-32.[address] [facility] Nucleated RBC/100 WBC (Bld) [Ratio] 0 % 0-[address] [facility] MCHC Auto (RBC) [Mass/Vol]Or dered By: Jesse Khan on 12-27-2022 MCHC (RBC) [Mass/Vol] 34.8 g/dL 32-36 [facility] No Panel InformationOrdered By: Jesse Khan on 12-27-2022 Estimated GFR (MDRD) Amer 81 mL/min >[address] [facility] Comment on above: GFR Calc Estimated GFR (MDRD) Non-Af Amer 67 mL/min >[address] [facility] Comment on above: Non- GFR Calc Vitamin D 25-Hydroxy 57.9 ng/mL [facility] Comment on above: Vitamin D 25(OH) Sta tus Range Deficiency <20 ng/mL (50nmol/L) Insufficiency 20 - 30 ng/mL (50 - 75 nmol/L) Sufficiency 30 - 100 ng/mL (75 - 250 nmol/L) Toxicity >100 ng/mL (>250 nmol/L) Platelets bldOrdered By: Elsa Khan on 12-27-2022 Platelets (Bld) [#/Vol] 218 10*3/uL 150-[address] [facility] Serum or plasma albumin luis urement (mass/volume)Ordered By: Jesse Khan on 12-27-2022 Albumin [Mass/Vol] 3.7 g/dL 3.2-5.0 [facility] Serum or plasma albumin/glob ulin mass ratioOrdered By: Jesse Khan on 12-27-2022 Albumin/Globulin [Mass ratio] 1.1 {ratio} 0.9-2.[address] [facility] Serum or plasma calcium luis urement (mass/volume)Ordered By: Jesse Khan on 12-27-2022 Calcium [Mass/Vol] 9.2 mg/dL 8.5-10.1 [facility] Serum or plasma cholesterol in HDL measurement (mass/volume)Ordered By: Jesse Khan on 12-27-2022 Cholesterol in HDL [Mass/Vol] 82 mg/dL >[address] [facility] Comment on above: The drugs N-Acetylcy steine and Metamizole may falsely depress this assay. Reference Range HDL <40 mg/dL Low HDL Cholesterol HDL >or= 60 mg/dL High HDL Cholesterol Serum or plasma cholesterol in VLDL measurement (mass/volume)Ordered By: Jesse Khan on 12-27-2022 Cholesterol in VLDL [Mass/Vol] 14 mg/dL 5-[address] [facility] Serum or plasma creatinine m easurement (mass/volume)Ordered By: Jesse Khan on 12-27-2022 Creatinine [Mass/Vol] 0.90 mg/dL 0.55-1.02 [facility] Comment on above: The validity of the calculated GFR & GFRAA in patients over 70 years has not been determined. Clinical correlation is essential. Serum or plasma low density lipoprotein (LDL) cholesterol measurement (mass/volume)Ordered By: Jesse Khan on 12-27-2022 Cholesterol in LDL [Mass/Vol] 113 mg/dL 0-[address] [facility] Serum or plasma urea nitroge n measurement (mass/volume)Ordered By: Jesse Khan on 12-27-2022 Urea nitrogen [Mass/Vol] 20 mg/dL 7-[address] [facility] Thin prep Papanicolaou smear with manual screeningOrdered By: Jesse Khan on 12-27-2022 Thin prep Papanicolaou smear with manual screening 11 U/L 15-[address] [facility] Thin prep Papanicolaou smear with manual screening 3 5-[address] [facility] COVID-19 virus antigen assay Ordered By: Dr. Khan on 06-06-2022 SARS-CoV-2 (COVID-19) Ag IA.rapid Ql (Resp) Not detected Not Detect [facility] Comment on above: Normal Reference Ran ge: Not DetectedMethod:(RT-PCR) real-time reverse transcriptase PCRLuminex TINY Instrument*The Food and Drug Administration (FDA) has issued an Emergency Use Authorization (EAU) for the TIYN SARS-CoV-2 Assay for the rapid detection of the virus that causes COVID-19. This test has been validated, but the FDAs independent review of this validation is pending.*Negative results do not preclude infection and should not be used as the sole basis for treatment or patient management. Optimum specimen types and timing for peak viral levels during infections caused by SARS-CoV-2 have not been determined. Collection of multiple specimens from the same patient may be necessary to detect the virus. The possibility of a false negative result should be considered if the patient has clinical presentation or has had recent exposure. Cervical or vagninal specime n microscopic examination by cytology stain (reported asOrdered By: Dana Hall on 04-03-2022 Cytology report Cyto stain Doc (Cvx/Vag) Comment . [facility] Comment on above: The Pap smear is a s creening test designed to aid in thedetection of premalignant and malignant conditions of theuterine cervix. It is not a diagnostic procedure andshould not be used as the sole means of detecting cervicalcancer. Both false-positive and false-negative reports dooccur. Detection in cervical specim en of any of human papilloma virus (HPV) 16, 18, 31, 33,Ordered By: Dana Hall on 04-03-2022 HPV 16+18+31+33+35+39+45+51 +52+56+58+59+66+68 DNA Probe+sig amp Ql (Cvx) Negative Negative [facility] Comment on above: This nucleic acid am plification test detects fourteen high-risk HPV types (16,18,31,33,35,39,45,51,52,56,58,59,66,68)without differentiation. Laboratory - CytologyOrdered By: Dana Hall on 04-03-2022 Slicing Machine Tender Cyto stain Nom (Cvx/Vag) [ID] Comment . [facility] Comment on above: Mayo Shipley totechnologist Laboratory - Miscellaneous t estsOrdered By: Dana Hall on 04-03-2022 Service comment (Unsp spec) [Interp] Comment . [facility] Comment on above: This liquid based Th inPrep(R) pap test was screened withthe use of an image guided system. Service comment (Unsp spec) [Interp] . . [facility] Liquid-based cerv Pap + CT/G C by CONOR w reflex to high-risk HPV for ASCUSOrdered By: Dana Hall on 04-03-2022 Cytology report Cyto stain.thin prep Doc (Cvx/Vag) Comment . [facility] Comment on above: Criteria not met, HP V Genotype not performed.Performed at: [facility] [id number] Director: Ana Leary MD, Phone: [phone] at: =[facility] [id number] Director: Ana Leary MD, Phone: [phone] No Panel InformationOrdered By: Dana Hall on 04-03-2022 Pathology report final diagnosis Narrative Comment . [facility] Comment on above: NEGATIVE FOR INTRAEP ITHELIAL LESION OR MALIGNANCY. Absolute lymphocyte countOrd ered By: Dr. Khan on 02-16-2022 Lymphocytes Auto (Unsp spec) [#/Vol] 2.08 10*3/uL 0.83-4.[address] [facility] Basophil percentageOrdered B y: Dr. Khan on 02-16-2022 Basophils/100 WBC (Bld) 0.3 % 0-1 [facility] Eosinophils/100 WBC (Bld) 0.1 % 0-[address] [facility] Neutrophils (Bld) [#/Vol] 8.7 10*3/uL 2.0-7.[address] [facility] Neutrophils/100 WBC (Bld) 76.9 % 47-[address] [facility] WBC (Bld) [#/Vol] 11.3 10*3/uL 4.4-11.0 [facility] Blood erythrocytes count (nu mber/volume)Ordered By: Dr. Khan on 02-16-2022 RBC (Bld) [#/Vol] 4.47 10*6/uL 4.2-5.4 [facility] Blood hemoglobin measurement (mass/volume)Ordered By: Dr. Khan on 02-16-2022 Hemoglobin (Bld) [Mass/Vol] 15.6 g/dL 12.0-15.[address] [facility] Blood lymphocytes/100 leukoc ytesOrdered By: Dr. Khan on 02-16-2022 Lymphocytes/100 WBC (Bld) 18.4 % 19-[address] [facility] Blood monocytes/100 leukocyt esOrdered By: Dr. Khan on 02-16-2022 Monocytes/100 WBC (Bld) 3.2 % 0-10 [facility] Blood platelet mean volumeOr dered By: Dr. Khan on 02-16-2022 Platelet mean volume (Bld) [Entitic vol] 10.7 fL 6.2-12.[address] [facility] Determination of erythrocyte mean corpuscular volume (MCV)Ordered By: Dr. Khan on 02-16-2022 MCV (RBC) [Entitic vol] 101.6 fL 81-99 [facility] Hematocrit Auto (Bld) [Volum e fraction]Ordered By: Dr. Khan on 02-16-2022 Hematocrit (Bld) [Volume fraction] 45.4 % 37-[address] [facility] - Hematology and Cell countsOrdered By: Dr. Khan on 02-16-2022 Erythrocyte distribution width (RBC) [Entitic vol] 47.8 fL 35.1-43.[address] [facility] [facility] Erythrocyte distribution width (RBC) [Ratio] 12.7 % 11.6-14.[address] [facility] Immature granulocytes/100 WBC (Bld) 1.100 % 0.0-0.[address] [facility] Comment on above: IG% - Immature Granu locytes (promyelocytes, myelocytes and metamyelocytes) > 1% indicates that a LEFT SHIFT is Present. MCH (RBC) [Entitic mass] 34.9 pg 27.0-32.[address] [facility] Nucleated RBC/100 WBC (Bld) [Ratio] 0 % 0-[address] [facility] MCHC Auto (RBC) [Mass/Vol]Or dered By: Dr. Khan on 02-16-2022 MCHC (RBC) [Mass/Vol] 34.4 g/dL 32-36 [facility] Platelets bldOrdered By: Dr. Khan on 02-16-2022 Platelets (Bld) [#/Vol] 259 10*3/uL 150-[address] [facility] Serum or plasma C reactive p rotein measurement (mass/volume)Ordered By: Dr. Khan on 02-16-2022 CRP [Mass/Vol] mg/L 0.0-3.[address] [facility] Comment on above: C-Reactive Protein ( CRP) provides useful information for thediagnosis, therapy and monitoring of inflammatory processesand associated diseases. For the evaluation of Relative Riskfor Cardiovascular Disease, a High Sensitivity CRP (HSCRP)should be ordered. Absolute lymphocyte counton 12-21-2021 Lymphocytes Auto (Unsp spec) [#/Vol] 1.50 10*3/uL 0.83-4.[address] [facility] Work Phone: Basophil percentageon 2021 Basophils/100 WBC (Bld) 0.4 % 0-1 [facility] Work Phone: Bilirubin [Mass/Vol] 0.50 mg/dL 0.20-1.00 [facility] Work Phone: Comment on above: For patients on eltr ombopag therapy, use of Dimension [place] TBIL is not recommended. Chloride [Moles/Vol] 105 mmol/L 98-107 [facility] Work Phone: Cholesterol [Mass/Vol] 207 mg/dL <200 [facility] Work Phone: Comment on above: <200 mg/dL Desirable 200-240 mg/dL Borderline >240 mg/dL High Risk Eosinophils/100 WBC (Bld) 1.7 % 0-[address] [facility] Work Phone: Glucose [Mass/Vol] 85 mg/dL 74-106 [facility] Work Phone: Neutrophils (Bld) [#/Vol] 2.7 10*3/uL 2.0-7.[address] [facility] Work Phone: Neutrophils/100 WBC (Bld) 56.7 % 47-[address] [facility] Work Phone: Potassium [Moles/Vol] 4.1 mmol/L 3.5-5.1 [facility] Work Phone: Protein [Mass/Vol] 6.8 g/dL 6.4-8.2 [facility] Work Phone: Sodium [Moles/Vol] 140 mmol/L 136-145 [facility] Work Phone: Triglyceride [Mass/Vol] 63 mg/dL <199 [facility] Work Phone: Comment on above: The drugs N-Acetylcy steine and Metamizole may falsely depress this assay.Serum Triglycerides Reference Interval Normal <150 mg/dL Borderline high 150 - 199 mg/dL High 200 - 499 mg/dL Very High > or = 500 mg/dL WBC (Bld) [#/Vol] 4.7 10*3/uL 4.4-11.0 [facility] Work Phone: Bilirubin Test strip Ql (U)o n 12-21-2021 Bilirubin Ql (U) Negative Negative [facility] Work Phone: Blood erythrocytes count (nu mber/volume)on 12-21-2021 RBC (Bld) [#/Vol] 4.30 10*6/uL 4.2-5.4 [facility] Work Phone: Blood hemoglobin measurement (mass/volume)on 12-21-2021 Hemoglobin (Bld) [Mass/Vol] 15.0 g/dL 12.0-15.[address] [facility] Work Phone: Blood lymphocytes/100 leukoc yteson 12-21-2021 Lymphocytes/100 WBC (Bld) 31.7 % 19-[address] [facility] Work Phone: Blood monocytes/100 leukocyt eson 12-21-2021 Monocytes/100 WBC (Bld) 8.9 % 0-10 [facility] Work Phone: Blood platelet mean volumeon 12-21-2021 Platelet mean volume (Bld) [Entitic vol] 10.3 fL 6.2-12.[address] [facility] Work Phone: Determination of erythrocyte mean corpuscular volume (MCV)on 12-21-2021 MCV (RBC) [Entitic vol] 101.6 fL 81-99 [facility] Work Phone: Hematocrit Auto (Bld) [Volum e fraction]on 12-21-2021 Hematocrit (Bld) [Volume fraction] 43.7 % 37-[address] [facility] Work Phone: Ketones Test strip Ql (U)on 12-21-2021 Ketones Ql (U) Negative Negative [facility] Work Phone: Laboratory - Chemistry and C hemistry - challengeon 12-21-2021 ALP [Catalytic activity/Vol] 54 U/L 45-[address] [facility] Work Phone: ALT [Catalytic activity/Vol] 27 U/L 13-[address] [facility] Work Phone: CO2 [Moles/Vol] 29.0 mmol/L 21.0-32.[address] [facility] Work Phone: Globulin (S) [Mass/Vol] 3.1 g/dL 2.2-4.2 [facility] Work Phone: Urea nitrogen/Creatinine [Mass ratio] 25.3 mg/mg 10-[address] [facility] Work Phone: Laboratory - Hematology and Cell countson 12-21-2021 Erythrocyte distribution width (RBC) [Entitic vol] 46.5 fL 35.1-43.[address] [facility] Work Phone: Erythrocyte distribution width (RBC) [Ratio] 12.5 % 11.6-14.[address] [facility] Work Phone: Immature granulocytes/100 WBC (Bld) 0.600 % 0.0-0.[address] [facility] Work Phone: Comment on above: IG% - Immature Granu locytes (promyelocytes, myelocytes and metamyelocytes) > 1% indicates that a LEFT SHIFT is Present. MCH (RBC) [Entitic mass] 34.9 pg 27.0-32.[address] [facility] Work Phone: Nucleated RBC/100 WBC (Bld) [Ratio] 0 % 0-[address] [facility] Work Phone: MCHC Auto (RBC) [Mass/Vol]on 12-21-2021 MCHC (RBC) [Mass/Vol] 34.3 g/dL 32-[address] [facility] Work Phone: Nitrite Test strip Ql (U)on 12-21-2021 Nitrite Ql (U) Negative Negative [facility] Work Phone: No Panel Informationon 12-21 Estimated GFR (MDRD) Amer 95 mL/min >[address] [facility] Work Phone: Comment on above: GFR Calc Estimated GFR (MDRD) Non-Af Amer 78 mL/min >[address] [facility] Work Phone: Comment on above: Non- GFR Calc Thyroid Stimulating Hormone (TSH) 1.37 uIU/mL 0.358-3.[address] [facility] Work Phone: Vitamin B12 Level > 2000 pg/mL 211-911 [facility] Work Phone: Vitamin D 25-Hydroxy 49.4 ng/mL [facility] Work [facility]: Comment on above: Vitamin D 25(OH) Sta tus Range Deficiency <20 ng/mL (50nmol/L) Insufficiency 20 - 30 ng/mL (50 - 75 nmol/L) Sufficiency 30 - 100 ng/mL (75 - 250 nmol/L) Toxicity >100 ng/mL (>250 nmol/L) Platelets bldon 12-21-2021 Platelets (Bld) [#/Vol] 206 10*3/uL 150-[address] [facility] Work Phone: Protein Test strip Ql (U)on 12-21-2021 Protein Ql (U) 15 mg/dl Negative [facility] Work Phone: Serum or plasma albumin luis urement (mass/volume)on 12-21-2021 Albumin [Mass/Vol] 3.7 g/dL 3.2-5.0 [facility] Work Phone: Serum or plasma albumin/glob ulin mass ratioon 12-21-2021 Albumin/Globulin [Mass ratio] 1.2 {ratio} 0.9-2.[address] [facility] Work Phone: Serum or plasma calcium luis urement (mass/volume)on 12-21-2021 Calcium [Mass/Vol] 9.1 mg/dL 8.5-10.1 [facility] Work Phone: Serum or plasma cholesterol in HDL measurement (mass/volume)on 12-21-2021 Cholesterol in HDL [Mass/Vol] 81 mg/dL >[address] [facility] Work Phone: Comment on above: The drugs N-Acetylcy steine and Metamizole may falsely depress this assay. Reference Range HDL <40 mg/dL Low HDL Cholesterol HDL >or= 60 mg/dL High HDL Cholesterol Serum or plasma cholesterol in VLDL measurement (mass/volume)on 12-21-2021 Cholesterol in VLDL [Mass/Vol] 13 mg/dL 5-[address] [facility] Work Phone: Serum or plasma creatinine m easurement (mass/volume)on 12-21-2021 Creatinine [Mass/Vol] 0.79 mg/dL 0.55-1.02 [facility] Work Phone: Comment on above: The validity of the calculated GFR & GFRAA in patients over 70 years has not been determined. Clinical correlation is essential. Serum or plasma low density lipoprotein (LDL) cholesterol measurement (mass/volume)on 12-21-2021 Cholesterol in LDL [Mass/Vol] 113 mg/dL 0-[address] [facility] Work Phone: Serum or plasma urea nitroge n measurement (mass/volume)on 12-21-2021 Urea nitrogen [Mass/Vol] 20 mg/dL 7-[address] [facility] Work Phone: Thin prep Papanicolaou smear with manual screeningon 12-21-2021 Thin prep Papanicolaou smear with manual screening 17 U/L 15-[address] [facility] Work Phone: Thin prep Papanicolaou smear with manual screening 6 5-[address] [facility] Work Phone: Urine blood detectionon -0 RBC Ql (U) Negative Negative [facility] Work Phone: Urine clarityon 12-21-2021 Clarity (U) Clear Clear [facility] Work Phone: Urine color determinationon 12-21-2021 Color (U) Yellow Yellow [facility] Work Phone: Urine glucose detectionon Glucose Ql (U) Normal mg/dl Normal [facility] Work Phone: Urine leukocyte esterase det ection by dipstickon 12-21-2021 Leukocyte esterase Test strip Ql (U) 25 /ul Negative [facility] Work Phone: Urine pHon 12-21-2021 pH (U) 8.0 [pH] 5.0 - 8.[address] [facility] Work Phone: Urine specific gravity measu rementon 12-21-2021 Specific gravity (U) [Rel density] 1.010 1.002-1.[address] [facility] Work Phone: Urobilinogen Auto test strip Ql (U)on 12-21-2021 Urobilinogen Ql (U) Normal mg/dl Normal [facility] Work Phone: Laboratory - Microbiology an d Antimicrobial susceptibilityon 04-19-2021 SARS-CoV-2 (COVID-19) RNA CONOR+probe Ql (Unsp spec) Detected Not Detect [facility] Work Phone: Comment on above: Normal Reference Ran ge: Not DetectedMethod:(RT-PCR) real-time reverse transcriptase PCRLuminex [email or web address] Instrument*The Food and Drug Administration (FDA) has issued an Emergency Use Authorization (EAU) for the [employer] SARS-CoV-2 Assay for the rapid detection of the virus that causes COVID-19. This test has been validated, but the FDAs independent review of this validation is pending.*Negative results do not preclude infection and should not be used as the sole basis for treatment or patient management. Optimum specimen types and timing for peak viral levels during infections caused by SARS-CoV-2 have not been determined. Collection of multiple specimens from the same patient may be necessary to detect the virus. The possibility of a false negative result should be considered if the patient has clinical presentation or has had recent exposure. Cerebrospinal fluid Borrelia burgdorferi 18kd IgG antibody detection by immunobloton 04-14-2021 B. burgdorferi 18kD IgG IB Ql (CSF) Absent [facility] Work Phone: Cerebrospinal fluid Borrelia burgdorferi 23kD IgG antibody detection by immunobloton 04-14-2021 B. burgdorferi 23kD IgG IB Ql (CSF) Absent [facility] Work Phone: Cerebrospinal fluid Borrelia burgdorferi 23kD IgM antibody detection by immunobloton 04-14-2021 B. burgdorferi 23kD IgM IB Ql (CSF) Absent [facility] Work Phone: Cerebrospinal fluid Borrelia burgdorferi 28kD IgG antibody detection by immunobloton 04-14-2021 B. burgdorferi 28kD IgG IB Ql (CSF) Absent [facility] Work Phone: Cerebrospinal fluid Borrelia burgdorferi 39kD IgG antibody detection by immunobloton 04-14-2021 B. burgdorferi 39kD IgG IB Ql (CSF) Absent [facility] Work Phone: Cerebrospinal fluid Borrelia burgdorferi 39kD IgM antibody detection by immunobloton 04-14-2021 B. burgdorferi 39kD IgM IB Ql (CSF) Absent [facility] Work Phone: Cerebrospinal fluid Borrelia burgdorferi 41kD IgM antibody detection by immunobloton 04-14-2021 B. burgdorferi 41kD IgM IB Ql (CSF) Absent [facility] Work Phone: No Panel Informationon 04-14 Lyme Disease IgG Ab 30 kDa Band Absent [facility] Work Phone: Lyme Disease IgG Ab 93 kDa Band Absent [facility] Work Phone: Lyme Disease IgG West Blot Interp Negative [facility] Work Phone: Comment on above: Positive: 5 of the f ollowing Borrelia-specific bands: 18,23,28,30,39,41,45,58, 66, and 93. Negative: No bands or banding patterns which do not meet positive criteria. Lyme Disease IgM Ab (Western Blot) Negative [facility] Work Phone: Comment on above: Note: An equivocal o r positive EIA result followed by anegative Line Blot result is considered NEGATIVE. Anequivocal or positive EIA result followed by a positiveLine Blot is considered POSITIVE by the CDC.Positive: 2 of the following bands: 23,39 or 41Negative: No bands or banding patterns which do not meetpositive criteria.Criteria for positivity are those recommended byCDC/ASTPHLD. p23=Osp C, l36=[id number]:Sera from individuals with the following may cross reactin the Lyme Line Blot assays: other spirochetal diseases(periodontal disease, leptospirosis, relapsing fever, yaws,and pinta); connective autoimmune (Rheumatoid Arthritis andSystemic Lupus Erythematosus and also individuals withAntinuclear Antibody); other infections (Kobe MountainSpotted Fever; Flor-Fernando Virus, and Cytomegalovirus).Performed at: [address] [id number] Director: Barbara Hay MD, Phone: [phone] Serum Borrelia burgdorferi 4 1kD IgG antibody detection by immunobloton 04-14-2021 B. burgdorferi 41kD IgG IB Ql (S) Absent [facility] Work Phone: Serum Borrelia burgdorferi 6 6kD IgG antibody detection by immunobloton 04-14-2021 B. burgdorferi 66kD IgG IB Ql (S) Absent [facility] Work Phone: Synovial fluid Borrelia alannah dorferi 45kD IgG antibody detection by immunobloton 04-14-2021 B. burgdorferi 45kD IgG IB Ql (Syn fld) Absent [facility] Work Phone: Synovial fluid Borrelia alannah dorferi 58kD IgG antibody detection by immunobloton 04-14-2021 B. burgdorferi 58kD IgG IB Ql (Syn fld) Absent [facility] Work Phone: Absolute lymphocyte counton 04-10-2021 Lymphocytes Auto (Unsp spec) [#/Vol] 0.95 10*3/uL 0.83-4.[address] [facility] Work Phone: Basophil percentageon 2020 Bilirubin [Mass/Vol] 0.30 mg/dL 0.20-1.00 [facility] Work Phone: Comment on above: For patients on eltr ombopag therapy, use of Dimension [place] TBIL is not recommended. Chloride [Moles/Vol] 109 mmol/L 98-107 [facility] Work Phone: Eosinophils/100 WBC (Bld) 0.2 % 0-[address] [facility] Work Phone: Glucose [Mass/Vol] 106 mg/dL 74-106 [facility] Work Phone: Comment on above: Fasting Glucose resu lt from 100 to 125 mg/dL suggests IMPAIRED HOMEOSTASIS per A.D.A. criteria.Please note revised GLUCOSE reference range effective 2017. Neutrophils (Bld) [#/Vol] 3.6 10*3/uL 2.0-7.[address] [facility] Work Phone: Potassium [Moles/Vol] 4.0 mmol/L 3.5-5.1 [facility] Work Phone: Protein [Mass/Vol] 6.6 g/dL 6.4-8.2 [facility] Work Phone: Sodium [Moles/Vol] 140 mmol/L 136-145 [facility] Work Phone: WBC (Bld) [#/Vol] 5.1 10*3/uL 4.4-11.0 [facility] Work Phone: Blood erythrocytes count (nu mber/volume)on 04-10-2021 RBC (Bld) [#/Vol] 4.26 10*6[facility]: Blood hemoglobin measurement (mass/volume)on 04-10-2021 Hemoglobin (Bld) [Mass/Vol] 14.5 g/dL 12.0-15.[address] [facility] Work Phone: Blood lymphocytes/100 leukoc yteson 04-10-2021 Lymphocytes/100 WBC (Bld) 18.6 % 19-[address] [facility] Work Phone: Blood monocytes/100 leukocyt eson 04-10-2021 Monocytes/100 WBC (Bld) 9.0 % 0-10 [facility] Work Phone: Blood platelet mean volumeon 04-10-2021 Platelet mean volume (Bld) [Entitic vol] 10.4 fL 6.2-12.[address] [facility] Work Phone: Determination of erythrocyte mean corpuscular volume (MCV)on 04-10-2021 MCV (RBC) [Entitic vol] 98.8 fL 81-99 [facility] Work Phone: Hematocrit Auto (Bld) [Volum e fraction]on 04-10-2021 Hematocrit (Bld) [Volume fraction] 42.1 % 37-[address] [facility] Work Phone: Laboratory - Chemistry and C hemistry - challengeon 04-10-2021 ALP [Catalytic activity/Vol] 74 U/L 45-[address] [facility] Work Phone: ALT [Catalytic activity/Vol] 25 U/L 13-[address] [facility] Work Phone: CO2 [Moles/Vol] 26.0 mmol/L 21.0-32.[address] [facility] Work Phone: Globulin (S) [Mass/Vol] 3.3 g/dL 2.2-4.2 [facility] Work Phone: Urea nitrogen/Creatinine [Mass ratio] 22.4 mg/mg 10-[address] [facility] Work Phone: Laboratory - Hematology and Cell countson 04-10-2021 Basophils/100 WBC (Unsp spec) 0.4 % 0-[address] [facility] Work Phone: Erythrocyte distribution width (RBC) [Entitic vol] 45.5 fL 35.1-43.[address] [facility] Work Phone: Erythrocyte distribution width (RBC) [Ratio] 12.7 % 11.6-14.[address] [facility] Work Phone: Immature granulocytes/100 WBC (Bld) 1.200 % 0.0-0.[address] [facility] Work Phone: Comment on above: IG% - Immature Granu locytes (promyelocytes, myelocytes and metamyelocytes) > 1% indicates that a LEFT SHIFT is Present. MCH (RBC) [Entitic mass] 34.0 pg 27.0-32.[address] [facility] Work Phone: Neutrophils/100 WBC (Bld) 70.6 % 47-[address] [facility] Work Phone: Nucleated RBC/100 WBC (Bld) [Ratio] 0 % 0-[address] [facility] Work Phone: MCHC Auto (RBC) [Mass/Vol]on 04-10-2021 MCHC (RBC) [Mass/Vol] 34.4 g/dL 32-36 [facility] Work Phone: No Panel Informationon 04-10 Estimated Creatinine Clearance Calc 76.59 ml/min [facility] Work Phone: Estimated GFR (MDRD) Amer 124 mL/min >[address] [facility] Work Phone: Comment on above: GFR Calc Estimated GFR (MDRD) Non-Af Amer 102 mL/min >[address] [facility] Work Phone: Comment on above: Non- GFR Calc Thyroid Stimulating Hormone (TSH) 0.93 uIU/mL 0.358-3.[address] [facility] Work Phone: SARS-CoV-2 Antigen (Rapid) [facility] Work Phone: Platelets bldon 04-10-2021 Platelets (Bld) [#/Vol] 167 10*3/uL 150-[address] [facility] Work Phone: Serum or plasma albumin luis urement (mass/volume)on 04-10-2021 Albumin [Mass/Vol] 3.3 g/dL 3.2-5.0 [facility] Work Phone: Serum or plasma albumin/glob ulin mass ratioon 04-10-2021 Albumin/Globulin [Mass ratio] 1.0 {ratio} 0.9-2.[address] [facility] Work Phone: Serum or plasma calcium luis urement (mass/volume)on 04-10-2021 Calcium [Mass/Vol] 8.3 mg/dL 8.5-10.1 [facility] Work Phone: Serum or plasma creatinine m easurement (mass/volume)on 04-10-2021 Creatinine [Mass/Vol] 0.63 mg/dL 0.55-1.02 [facility] Work Phone: Comment on above: The validity of the calculated GFR & GFRAA in patients over 70 years has not been determined. Clinical correlation is essential. Serum or plasma urea nitroge n measurement (mass/volume)on 04-10-2021 Urea nitrogen [Mass/Vol] 14 mg/dL 7-[address] [facility] Work Phone: Thin prep Papanicolaou smear with manual screeningon 04-10-2021 Thin prep Papanicolaou smear with manual screening 15 U/L 15-[address] [facility] Work Phone: Thin prep Papanicolaou smear with manual screening 5 5-[address] [facility] Work Phone: Basophil percentageon 2020 Bilirubin [Mass/Vol] 0.40 mg/dL 0.20-1.00 [facility] Work Phone: Comment on above: For patients on eltr ombopag therapy, use of Dimension [place] TBIL is not recommended. Chloride [Moles/Vol] 109 mmol/L 98-107 [facility] Work Phone: Glucose [Mass/Vol] 93 mg/dL 74-106 [facility] Work Phone: Comment on above: Please note revised GLUCOSE reference range effective 2017. Potassium [Moles/Vol] 3.8 mmol/L 3.5-5.1 [facility] Work Phone: Protein [Mass/Vol] 6.8 g/dL 6.4-8.2 [facility] Work Phone: Sodium [Moles/Vol] 142 mmol/L 136-145 [facility] Work Phone: Laboratory - Chemistry and C hemistry - challengeon 03-24-2021 ALP [Catalytic activity/Vol] 54 U/L 45-[address] [facility] Work Phone: ALT [Catalytic activity/Vol] 30 U/L 13-[address] [facility] Work Phone: CO2 [Moles/Vol] 27.0 mmol/L 21.0-32.[address] [facility] Work Phone: Globulin (S) [Mass/Vol] 3.0 g/dL 2.2-4.2 [facility] Work Phone: Urea nitrogen/Creatinine [Mass ratio] 24.2 mg/mg 10-[address] [facility] Work Phone: No Panel Informationon 03-24 Estimated GFR (MDRD) Amer 101 mL/min >[address] [facility] Work Phone: Comment on above: GFR Calc Estimated GFR (MDRD) Non-Af Amer 84 mL/min >[address] [facility] Work Phone: Comment on above: Non- GFR Calc Vitamin D 25-Hydroxy 45.2 ng/mL [facility] Work Phone: Comment on above: Vitamin D 25(OH) Sta tus Range Deficiency <20 ng/mL (50nmol/L) Insufficiency 20 - 30 ng/mL (50 - 75 nmol/L) Sufficiency 30 - 100 ng/mL (75 - 250 nmol/L) Toxicity >100 ng/mL (>250 nmol/L) Serum or plasma albumin luis urement (mass/volume)on 03-24-2021 Albumin [Mass/Vol] 3.8 g/dL 3.2-5.0 [facility] Work Phone: Serum or plasma albumin/glob ulin mass ratioon 03-24-2021 Albumin/Globulin [Mass ratio] 1.3 {ratio} 0.9-2.[address] [facility] Work Phone: Serum or plasma calcium luis urement (mass/volume)on 03-24-2021 Calcium [Mass/Vol] 8.7 mg/dL 8.5-10.1 [facility] Work Phone: Serum or plasma creatinine m easurement (mass/volume)on 03-24-2021 Creatinine [Mass/Vol] 0.74 mg/dL 0.55-1.02 [facility] Work Phone: Comment on above: The validity of the calculated GFR & GFRAA in patients over 70 years has not been determined. Clinical correlation is essential. Serum or plasma urea nitroge n measurement (mass/volume)on 12-09-2021 Urea nitrogen [Mass/Vol] 18 mg/dL 7-[address] [facility] Work Phone: Thin prep Papanicolaou smear with manual screeningon 03-24-2021 Thin prep Papanicolaou smear with manual screening 16 U/L 15-[address] [facility] Work Phone: Thin prep Papanicolaou smear with manual screening 6 5-[address] [facility] Work Phone: MD Celeste Injection/Arthrocentes is: R medial epicondyleon 01-05-2020 Ryan Coulter CNP 01/05/2020 7:05 PM MD [place] Injection/Arthrocent esis: R medial epicondyle Performed by: Ryan Coulter CNP Authorized by: Ryan Coulter CNP CPT 79680 - Medium Joint Arthrocentesis: Consent given by: [...] Medications: 40 mg triamcinolone acetonide 40 mg/mL [facility] XR ELBOW RIGHT 3+ VIEWS (STA NDARD)on 01-05-2020 XR ELBOW RIGHT 3+ VIEWS (STANDARD) EXAMINATION: XR ELBOW RIGHT 3+ VIEWS (STANDARD) 01/05/2020 2:14 pm HISTORY: ORDERING SYSTEM PROVIDED HISTORY: Pain, TECHNOLOGIST PROVIDED HISTORY: Illness/Other Reason for exam: RIGHT ELBOW PAIN THAT SOMETIMES RADIATES DOWN TO HER HAND. NO NJURY. Cancer History: U Surgery, RadiationHistory: U Encounter Type: Initial Additional signs and symptoms: NONE ORDERING SYSTEM PROVIDED DIAGNOSIS CODES: R52 Pain COMPARISON: None IMPRESSION: FINDINGS/ No fracture or malalignment. No osteoarthritis or erosions. Normal soft tissues. Workstation ID: [id number] Dictated by: ASIA ONTIVEROS on SunJan 05, 2020 9:01:57 PM EDT Transcribed by: ASIA ONTIVEROS on SunJan 05, 2020 9:01:57 PM EDT Finalized by: ASIA ONTIVEROS on SunJan 05, 2020 9:01:57 PM EDT Normal [facility] Ambulatory Comment on above: Order Comment: Injur y/Trauma or Illness?:Illness/Other How long have you had these symptoms (acute/chronic)?:Chronic Reason for exam?:RIGHT ELBOW PAIN THAT SOMETIMES RADIATES DOWN TO HER HAND. NO NJURY. History of cancer?:U Surgeries, chemotherapy, or radiation?:U Type of Exam?:Initial Additional signs and symptoms?:NONE Vital Signs Date Time Vital Sign Value Performing Clinician Facility 07-25-2024 09:52-0400 Body temperature 96.5 [degF] Dr. Jesse Khan DO Work Phone: [facility] 07-25-2024 09:52-0400 Diastolic blood pressure 69 mm[Hg] Dr. Jesse Khan DO Work Phone: [facility] 07-25-2024 09:52-0400 Heart rate 85 /min Dr. Jesse Khan DO Work Phone: [facility] 07-25-2024 09:52-0400 Respiratory rate 16 /min Dr. Jesse Khan DO Work Phone: [facility] 07-25-2024 09:52-0400 SaO2% (BldA) [Mass fraction] 98 % Dr. Jesse Khan DO Work Phone: [facility] 07-25-2024 09:52-0400 Systolic blood pressure 99 mm[Hg] Dr. Jesse Khan DO Work Phone: [facility] 04-14-2024 10:25-0500 Body height 160.[address] Jesse Khan DO Work Phone: [facility] 04-14-2024 10:19-0500 Body mass index (BMI) [Ratio] 25.9 kg/m2 Dr. Jesse Khan DO Work Phone: [facility] 04-14-2024 10:19-0500 Body weight 66.[address] Jesse Khan DO Work Phone: [facility] 04-14-2024 10:19-0500 Diastolic blood pressure 68 mm[Hg] Dr. Jesse Khan DO Work Phone: [facility] 04-14-2024 10:19-0500 Systolic blood pressure 108 mm[Hg] Dr. Jesse Khan DO Work Phone: [facility] 07-25-2023 11:39-0400 Body height 160.[address] Jesse Khan Work Phone: [facility] 07-25-2023 11:39-0400 Body mass index (BMI) [Ratio] 28.3 kg/m2 Dr. Jesse Khan Work Phone: [facility] 07-25-2023 11:39-0400 Body temperature 97.1 [degF] Dr. Jesse Khan Work Phone: [facility] 07-25-2023 11:39-0400 Body weight 72.[address] Jesse Khan Work Phone: [facility] 07-25-2023 11:39-0400 Diastolic blood pressure 74 mm[Hg] Dr. Jesse Khan Work Phone: [facility] 07-25-2023 11:39-0400 Heart rate 80 /min Dr. Jesse Khan Work Phone: [facility] 07-25-2023 11:39-0400 Respiratory rate 16 /min Dr. Jesse Khan Work Phone: [facility] 07-25-2023 11:39-0400 SaO2% (BldA) [Mass fraction] 97 % Dr. Jesse Khan Work Phone: [facility] 07-25-2023 11:39-0400 Systolic blood pressure 118 mm[Hg] Dr. Jesse Khan Work Phone: [facility] 04-10-2023 09:53-0500 Body height 160.[address] Jesse Khan Work Phone: [facility] 04-10-2023 09:53-0500 Body mass index (BMI) [Ratio] 29 kg/m2 Dr. Jesse Khan Work Phone: [facility] 04-10-2023 09:53-0500 Body weight 74.[address] Jesse Khan Work Phone: [facility] 04-10-2023 09:53-0500 Diastolic blood pressure 80 mm[Hg] Dr. Jesse Khan Work Phone: [facility] 04-10-2023 09:53-0500 Systolic blood pressure 117 mm[Hg] Dr. Jesse Khan Work Phone: [facility] 11-17-2022 09:32-0400 Body height 160.02 cm [facility] 11-17-2022 09:32-0400 Body mass index (BMI) [Ratio] 27.4 kg/m2 [facility] 11-17-2022 09:32-0400 Body temperature 96.5 [degF] [facility] 11-17-2022 09:32-0400 Body weight 70.3 kg [facility] 11-17-2022 09:32-0400 Diastolic blood pressure 83 mm[Hg] [facility] 11-17-2022 09:32-0400 Heart rate 82 /min [facility] 11-17-2022 09:32-0400 Respiratory rate 16 /min [facility] 11-17-2022 09:32-0400 SaO2% (BldA) [Mass fraction] 100 % [facility] 11-17-2022 09:32-0400 Systolic blood pressure 124 mm[Hg] [facility] 05-12-2022 13:35-0500 Body height 160.[address] Jesse Khan Work Phone: [facility] 05-12-2022 13:35-0500 Body temperature 97.4 [degF] Dr. Jesse Khan Work Phone: [facility] 05-12-2022 13:35-0500 Diastolic blood pressure 78 mm[Hg] Dr. Jesse Khan Work Phone: [facility] 05-12-2022 13:35-0500 Heart rate 90 /min Dr. Jesse Khan Work Phone: [facility] 05-12-2022 13:35-0500 Respiratory rate 16 /min Dr. Jesse Khan Work Phone: [facility] 05-12-2022 13:35-0500 SaO2% (BldA) [Mass fraction] 97 % Dr. Jesse Khan Work Phone: [facility] 05-12-2022 13:35-0500 Systolic blood pressure 125 mm[Hg] Dr. Jesse Khan Work Phone: [facility] 04-03-2022 14:33-0500 Body height 160.[address] Jesse Khan Work Phone: [facility] Work Phone: 04-03-2022 14:33-0500 Body mass index (BMI) [Ratio] 29.5 kg/m2 Dr. Jesse Khan Work Phone: [facility] 04-03-2022 14:33-0500 Body weight 75.[address] Jesse Khna Work Phone: [facility] 04-03-2022 14:33-0500 Diastolic blood pressure 80 mm[Hg] Dr. Jesse Khan Work Phone: [facility] 04-03-2022 14:33-0500 Systolic blood pressure 120 mm[Hg] Dr. Jesse Khan Work Phone: [facility] 04-10-2021 09:14-0500 Heart rate 88 /min [facility] Work Phone: 04-10-2021 09:14-0500 Respiratory rate 17 /min [facility] Work Phone: 04-10-2021 09:14-0500 SaO2% (BldA) [Mass fraction] 98 % [facility] Work Phone: 04-10-2021 07:10-0500 Body height 160.02 cm [facility] Work Phone: 04-10-2021 07:10-0500 Body mass index (BMI) [Ratio] 27.6 kg/m2 [facility] Work Phone: 04-10-2021 07:10-0500 Body temperature 99.2 [degF] [facility] Work Phone: 04-10-2021 07:10-0500 Body weight 70.7 kg [facility] Work Phone: 04-10-2021 07:10-0500 Diastolic blood pressure 78 mm[Hg] [facility] Work Phone: 04-10-2021 07:10-0500 Systolic blood pressure 117 mm[Hg] [facility] Work Phone: 01-05-2020 14:59-0400 BMI (Body Mass Index) 26.57 kg/m2 [facility] 01-05-2020 14:59-0400 Body weight 68.04 kg [facility] 01-05-2020 14:59-0400 Height 160 cm [facility] Encounters Encounter Date Encounter Type Care Provider Facility Start: 09-04-2024 End: 09-04-[address] Jesse Khan DO Work Phone: [facility] Work Phone: Start: 09-04-2024 End: 09-04-[address] Jesse Khan DO -Cat [facility] Work Phone: Start: 09-04-2024 End: 09-04-2024 ambulatory Jesse Khan Facility:[facility] Start: 08-07-2024 End: 08-07-[address] Jesse Khan DO -Laboratory [facility] Har[facility] Start: 08-07-2024 End: 08-07-2024 ambulatory Jesse Khan Facility:[facility] Start: 07-25-2024 End: 07-25-[address] Jesse Khan DO -Medical Out Work Phone: Start: 07-25-2024 End: 07-25-[address] Jesse Khan DO Work Phone: [facility] Work Phone: Start: 05-21-2024 End: 05-21-2024 Patient encounter procedure Dana Cabo Rojo MAIL DELIVERER-C -Outpatient Breast Imaging Work Phone: Start: 05-21-2024 End: 05-21-2024 ambulatory Jesse Khan Facility:[facility] Start: 04-14-2024 End: 04-14-2024 Patient encounter procedure Dana Isabel MAIL DELIVERER-C -[facility] Work Phone: Start: 04-14-2024 End: 04-14-2024 Patient encounter status Dana Cabo Rojo MAIL DELIVERER-C [facility] Start: 04-14-2024 End: 04-14-2024 ambulatory Jesse Khan Facility:[facility] Start: 04-07-2024 End: 04-07-[address] [facility] Work Phone: Start: 04-07-2024 End: 04-07-2024 ambulatory Jesse Khan Facility:[facility] Start: 01-25-2024 End: 01-25-2024 ambulatory Jesse Khan Facility:[facility] Start: 12-25-2023 End: 12-25-2023 ambulatory Jesse Khan Facility:[facility] Start: 07-25-2023 End: 07-25-[address] Jesse Khan Work Phone: [facility] Work Phone: Start: 07-25-2023 End: 07-25-[address] Jesse Khan Work Phone: [facility]-Medical Out Work Phone: Start: 04-18-2023 End: 04-18-[address] Jesse Khan Work Phone: [facility] Work Phone: Start: 04-18-2023 End: 04-18-[address] Jesse Khan Work Phone: [facility]-Outpatient Breast Imaging Work Phone: Start: 04-10-2023 End: 04-10-[address] Jesse Khan Work Phone: [facility] Work Phone: Start: 01-22-2023 End: 01-22-[address] Jesse Khan Work Phone: [facility]-Sleep Lab Work Phone: Start: 12-27-2022 End: 12-27-[address] [facility] Work Phone: Start: 12-27-2022 End: 12-27-2022 Patient encounter procedure [facility]-Laboratory Work Phone: Start: 11-17-2022 End: 11-17-[address] [facility] Work Phone: Start: 11-17-2022 End: 11-17-2022 Patient encounter procedure [facility]-Medical Out Work Phone: Start: 06-06-2022 End: 06-06-[address] Jesse Khan Work Phone: [facility] Work Phone: Start: 06-06-2022 End: 06-06-[address] Jesse Khan Work Phone: [facility]-Laboratory, Specimen Start: 05-12-2022 End: 05-12-[address] Jesse Khan Work Phone: [facility] Work Phone: Start: 05-12-2022 End: 05-12-[address] Jesse Khan Work Phone: [facility]-Medical Out Start: 04-14-2022 End: 04-14-[address] Jesse Khan Work Phone: [facility] Work Phone: Start: 04-14-2022 End: 04-14-[address] Jesse Khan Work Phone: [facility]-Outpatient Breast Imaging Start: 04-03-2022 End: 04-03-[address] [facility] Start: 04-03-2022 End: 04-03-[address] Jesse Khan Work Phone: [facility] Start: 02-16-2022 End: 02-16-[address] Jesse Khan Work Phone: [facility]-Laboratory, [place] Start: 12-21-2021 End: 12-21-[address] [facility] Work Phone: Start: 12-21-2021 End: 12-21-2021 Patient encounter procedure [facility]-Laboratory, [place] Start: 07-05-2021 End: 07-05-2021 Patient encounter procedure [facility]-Outpatient Bone Densitometry Start: 04-20-2021 End: 04-20-2021 [facility] Start: 04-14-[facility]21 [facility] [place] Start: 04-13-2021 Patient encounter procedure [facility]-Outpatient Breast Imaging Start: 04-10-2021 End: 04-10-2021 Emergency department patient visit [facility]-Emergency Department Start: 03-24-2021 Patient encounter procedure [facility]-Laboratory Start: 01-05-2020 End: 01-09-2020 Patient encounter procedure RYAN SAMUEL [facility] Start: 01-05-2020 End: 01-05-2020 Office outpatient new 45 minutes Ryan Nasreen Coulter Work Phone: [facility] Comment on above: Medial epicondylitis of right elbow (Primary Dx) Procedures Date Procedure Procedure Detail Performing Clinician Start: 09-04-2024 CT of head without contrast Dr. Jesse Khan DO Work Phone: Start: 05-21-2024 Dual energy X-ray absorptiometry Dr. Jesse Khan DO Work Phone: Start: 05-21-2024 Screening mammography Pascual Khan DO Work Phone: Start: 04-18-2023 Bilateral mammography Pascual Khan Work Phone: Start: 04-18-[address] Jesse Khan Work Phone: Start: 04-14-2022 Screening mammography Pascual Khan Work Phone: Start: 02-16-2022 Plain chest X-ray Dr. Lux Khan Work Phone: Start: 07-05-2021 Dual energy X-ray absorptiometry Start: 04-13-2021 Screening mammography Start: 04-10-2021 SARS-CoV-2 Antigen (Rapid) Start: 04-10-2021 CT of head without contrast Start: 01-05-2020 Arthrocentesis aspir &/inj interm jt/burs w/o Ryan Nasreen Coulter Work Phone: Plan of Treatment Date Care Activity Detail Author Start: 08-29-2022 Tetanus vaccination Tetanus: Every 10yrs [facility] Start: 12-16-2019 Influenza vaccination given Sequential Influenza Vaccine (#1) [facility] Start: 2008 Administration of herpes zoster vaccine Zoster Vaccines (1 of 2) [facility] Start: 2008 Screening for malignant neoplasm of colon [facility] Start: 1976 Hepatitis C antibody, confirmatory test Hepatitis C Screening [facility] Start: 1973 HIV screening HIV Screening [facility] Start: 1961 History and physical examination, annual for health maintenance Wellness Visit [facility] Start: 1960 Depression screening using PHQ-9 (Patient Health Questionnaire 9) score Depression Screening (PHQ9) [facility] Start: 1960 Screening for malignant neoplasm of cervix Pap Smear [facility] Start: 1960 Screening mammography Mammogram [facility] Patient Education ED Headache Unspecified [facility] Work Phone: Patient referral [facility] Work Phone: Payers Date Payer Category Payer Medicare [id number] 2023 Self-pay [id number] 2023 Unknown [id number] 1960 Unknown [id number] 1960 Unknown [id number] [facility] [id number] Unknown COMMERCIAL COMME RCIAL MISCELLANEOUS [id number] Effective for all dates [id number] Unknown [id number] Unknown ANTHEM [id number] Unknown [id number] 62 Unknown [id number] 62 Unknown [id number] 62 Unknown [id number] 62 Unknown [id number] 62 Unknown [id number] 62 Unknown [id number] 62 Unknown [id number] 62 Social History Date Type Detail Facility Start: 01-05-2020 End: 04-10-2023 Tobacco smoking status IAIS Never smoker [facility] Start: 01-05-2020 Tobacco use and exposure Never used [facility] Start: 01-05-2020 Alcohol intake Current drinke r of alcohol (finding) [facility] Sex Assigned At Not on file [place] [facility] Exposure to SARS-CoV -2 (event) Not sure [facility] Start: 04-10-2021 End: 04-10-2023 Tobacco smoking status IAIS Unknown if ever smoked [facility] Start: 1960 Sex Assigned At Female W [facility] Start: 07-26-2024 Sex Female (finding) [facility] Mental Status Date Assessment Result Facility 07-25-2024 Cognitive function Voice/Name [facility] Work Phone: 07-25-2023 Cognitive function Voice/Name [facility] Work Phone: 11-17-2022 Cognitive function Level Of Cons ciousness Awake;Alert;Appropriate;Follow s Commands [facility] Work Phone: 05-12-2022 Cognitive function Awake;Alert;A ppropriate;Follow s Commands [facility] Work Phone: 04-10-2021 Cognitive function Level Of Cons ciousness Awake;Alert;Appropriate;Follow s Commands [facility] Work Phone: Radiology Diagnostic study note 09-04-2024 Note Date & Type Note Facility 09-04-2024 Radiology Diagnostic study note [facility] Imaging Services [address] [place], [place] [address] Brain/Head W/WO Contrast MR#: [id number] Acct: [id number] Name: NICHOLE ELMORE Rep #: [id number] : 1960 F 64 From: Homer Faye MD PCP: Dr. Jesse Khan DO Status: REG CLI Study:Brain/Head W/WO Contrast Date of Exam: 09/04/24 Exam# [id number] Ordering Dr: Jesse Khan DO PROCEDURE: BRAIN/HEAD W/WO CONTRAST 09/04/2024 REASON FOR EXAM: NEW ONSENT INTRACTABLE HEADACHES TECHNIQUE: Head CT before and following intravenous contrast. Coronal and Sagittal reconstruction series were provided. CONTRAST: Isovue 370 VOLUME: 47 mL IV One or more dose reduction techniques were used (e.g., Automated exposure control, adjustment of the mA and/or kV according to patient size, use of iterative reconstruction technique). RADIATION DOSE SUMMARY: DLP: 1479.73 mGycm COMPARISON: None. FINDINGS: Acute findings: No intracranial hemorrhage, mass, or mass effect is seen Brain: Normal. No orbital pathology is seen Postcontrast images: No area of abnormal postcontrast enhancement is seen CSF Spaces: Normal Sinuses/Mastoids: Clear at visualized levels Bones: No acute osseous process is seen CT/Brain/Head W/WO Contrast IMPRESSION: No significant abnormality is identified. Reading Location: [address] CC: Dr. Jesse Khan DO ~ Emergency Room Physician Assistant: Signed [facility] Evaluation note 04-14-2024 Note Date & Type Note Facility 04-14-2024 Evaluation note Diagnosis Onset Date Resolution Atrophic vaginitis acute Decemb er 2023 10:14am Osteopenia acute April 14, 2024 10:14am Encounter for routine gynecological examination noneactive April 14 024 10:14am [facility] Work Phone: Clinical Note 04-03-2022 Note Date & Type Note Facility 04-03-[address] [facility] Work Phone: Pap Smear Specimen Adequacy April 03, 2022 4:17pm Comment . Satisfactory for evaluation. No endocervical component is identified. Comment on above: Satisfactory for ranjith luation. No endocervical component is identified. Clinical Note 04-03-2022 Note Date & Type Note Facility 04-03-[address] [facility] Pap Smear Specimen Adequacy April 03, 2022 4:17pm Comment . Satisfactory for evaluation. No endocervical component is identified. Comment on above: Satisfactory for ranjith luation. No endocervical component is identified. Clinical Note 04-03-2022 Note Date & Type Note Facility 04-03-[address] [facility] Pap Smear Specimen Adequacy April 03, 2022 4:17pm Comment . Satisfactory for evaluation. No endocervical component is identified. Comment on above: Satisfactory for ranjith luation. No endocervical component is identified. Evaluation note Note Date & Type Note Facility Evaluation note No assessment information availa ble [facility] Work Phone: Evaluation note Note Date & Type Note Facility Evaluation note Diagnosis Onset Date Atrophic vaginitis acute Osteopenia acute Overactive bladder acute Encounter for routine gyneco logical examination noneactive [facility] Work Phone: Evaluation note Note Date & Type Note Facility Evaluation note Diagnosis Onset Date Atrophic vaginitis acute Breast mass, right acute Osteopenia acute Overactive bladder acute Encounter for routine gyneco logical examination noneactive [facility] Work Phone: Reason for referral (narrative) Note Date & Type Note Facility Reason for referral (narrative) No reason for referral information available [facility] Work Phone: History of Present Illness * Ryan Coulter CNP - 01/05/2020 7:01 PM EDT Associated Order(s): MD Celeste Injection/Arthrocentesis: R medial epicondyle Post-Procedure Diagnose(s): Medial epicondylitis of right elbow MD Celeste Injection/Arthrocentesis: R medial epicondyle Performed by: Ryan Coulter CNP Authorized by: Ryan Coulter CNP CPT 95209 - Medium Joint Arthrocentesis: Consent given by: [...] 40 mg triamcinolone acetonide 40 mg/mL * Ryan Coulter CNP - 01/05/2020 6:49 PM EDT [facility] [address] [facility] [address] [facility] [id number] Chief Complaint Patient presents with Right Forearm [...] Diagnosis Date COPD (chronic obstructive pulmonary disease) ([facility]) GERD (gastroesophageal reflux disease) Hernia, hiatal Past [...] file Gets together: Not on file Attends judaism service: Not on file Active member of [...] FoundDocuments on File Type Date Recorded 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 No April 10, 2021 9:38am Summary Purpose Family History No Family History Records Found Relationship Condition Age at Onset Recorded Date/T aminah father Diabetes mellitus Unknown Malignant neoplasm Unknown sister Systemic lupus erythematosus Unknown Relationship Condition Age at Onset Recorded Date/T aminah father Diabetes mellitus Unknown Malignant neoplasm Unknown sister Systemic lupus erythematosus Unknown mother Congestive heart failure Unknown Fibrosis of lung Unknown Chief Complaint and Reason for Visit Chief Complaint cody SCREENING V49.81 Chief Complaint LABS AND XRAY- Short ness of breath Annual (FURNITURE CRATER) SCREENING Reason for Visit Atrophic vaginitis Osteopenia Overactive bladder Encounter for routine gynecological examination Chief Complaint LABS AND XRAY- Short ness of breath Annual (FURNITURE CRATER) SCREENING PROLIA Reason for Visit Atrophic vaginitis Osteopenia Overactive bladder Encounter for routine gynecological examination Chief Complaint PROLIA Chief Complaint HYPERSOMNIA Annual (FURNITURE CRATER) RT BREAST MASS Reason for Visit Atrophic vaginitis Breast mass, right Osteopenia Overactive bladder Encounter for routine gynecological examination Chief Complaint Annual (FURNITURE CRATER) RT BREAST MASS PROLIA Reason for Visit Atrophic vaginitis Breast mass, right Osteopenia Overactive bladder Encounter for routine gynecological examination Chief Complaint Admit Date Annual (FURNITURE CRATER) April 14, 2024 10:14am SCREENING May 21, 2024 9 :19am PROLIA July 25, 2024 9:3 4am Reason for Visit Admit Date Atrophic vaginitis April 14, 2024 10:14am Osteopenia April 14, 2024 10:14am Encounter for routine gynecological exam ination April 14, 2024 10:14am Chief Complaint Admit Date SCREENING May 21, 2024 9 :19am PROLIA July 25, 2024 9:3 4am HEADACHES September 04, 2024 7:37a m Additional Source Comments Reason for Visit (unrecogniz ed section and content) Reason Comments Pain INFORMATION SOURCE (unrecogn ized section and content) DATE CREATED AUTHOR 01/09/2020 [facility] DATE CREATED AUTHOR AUTHOR'S ORGANIZ ATION 09/13/2024 [facility] Goals (unrecognized section and content) Goals may be documented in a n alternate sectionGoals may be documented in an alternate sectionGoals may be documented in an alternate sectionGoals may be documented in an alternate sectionGoals may be documented in an alternate sectionGoals may be documented in an alternate sectionGoals may be documented in an alternate sectionGoals may be documented in an alternate sectionGoals may be documented in an alternate sectionGoals may be documented in an alternate sectionGoals may be documented in an alternate section Care Teams (unrecognized sec tion and content) Team Status: Active Member Role Status Dates Dr. Jesse Khan DO Primary Care Provider Active Team Status: Inactive Member Role Status Dates Dr. Jesse Khan DO Primary Care Provider, Referrin g Provider Active Dana Hall MAIL DELIVERER, MAIL DELIVERER-C Attending Provider Active Team Status: Inactive Member Role Status Dates Dr. Jesse Khan DO Primary Care Prov ider, Attending Provider, Referring Provider Active Team Status: Inactive Member Role Status Dates Dr. Jesse Khan DO Primary Care Provider Active Dana Hall MAIL DELIVERER, MAIL DELIVERER-C Attending Provider Active Team Status: Inactive Member Role Status Dates Dr. Jesse Khan DO Primary Care Provider Active Dana Hall MAIL DELIVERER, MAIL DELIVERER-C Attending Provider, Referring Provider Active Team Status: Inactive Member Role Status Dates Dr. Jesse Khan DO Primary Care Provider, Attendin g Provider Active Team Status: Inactive Member Role Status Dates Dr. Jesse Khan DO Referring Provider Active Dana Hall MAIL DELIVERER, MAIL DELIVERER-C Attending Provider Active Team Status: Inactive Member Role Status Dates Dana Hall MAIL DELIVERER, MAIL DELIVERER-C Attending Provider Active Team Status: Inactive Member Role Status Dates Dr. Jesse Khan DO Primary Care Provider Active Start: April 07, 2024 End: April 07, 2024 Dr. Jesse Khan DO Attending Provider Active Start: April 07, 2024 End: April 07, 2024 Dr. Jesse Khan DO Referring Provider Active Start: April 07, 2024 End: April 07, 2024 Team Status: Inactive Member Role Status Dates Dr. Jesse Khan DO Primary Care Provider Active Start: April 14, 2024 End: April 14, 2024 Dr. Jesse Khan DO Referring Provider Active Start: April 14, 2024 End: April 14, 2024 Dana Hall MAIL DELIVERER, MAIL DELIVERER-C Attending Provider Active Start: April 14, 2024 End: April 14, 2024 Team Status: Inactive Member Role Status Dates Dr. Jesse Khan DO Primary Care Provider Active Start: May 21, 2024 End: May 21, 2024 Dana Hall MAIL DELIVERER, MAIL DELIVERER-C Attending Provider Active Start: May 21, 2024 End: May 21, 2024 Dana Hall NP, MAIL DELIVERER-C Referring Provider Active Start: May 21, 2024 End: May 21, 2024 Team Status: Inactive Member Role Status Dates Dr. Jesse Khan DO Primary Care Provider Active Start: July 25, 2024 End: July 25, 2024 Dr. Jesse Khan DO Attending Provider Active Start: July 25, 2024 End: July 25, 2024 Dr. Jesse Khan DO Referring Provider Active Start: July 25, 2024 End: July 25, 2024 Team Status: Inactive Member Role Status Dates Dr. Jesse Khan DO Primary Care Provider Active Start: August 07, 2024 End: August 07, 2024 Dr. Jesse Khan DO Attending Provider Active Start: August 07, 2024 End: August 07, 2024 Dr. Jesse Khan DO Referring Provider Active Start: August 07, 2024 End: August 07, 2024 Team Status: Inactive Member Role Status Dates Dr. Jesse Khan DO Primary Care Provider Active Start: September 04, 2024 End: September 04, 2024 Dr. Jesse Khan DO Attending Provider Active Start: September 04, 2024 End: September 04, 2024 Dr. Jesse Khan DO Referring Provider Active Start: September 04, 2024 End: September 04, 2024 FOR RECORDS PERTAINING TO PATIENTS WHO ARE [...] BE BASED ON THE PRIMARY CLINICAL RECORDS. [facility] [employer] provides no warranty or guarantee of the accuracy or completeness of information in this document.
[2024-11-27 10:25] LABS: Hematocrit 39.4 % (37-47); Hemoglobin 13.4 g/dL (12.0-15.0); Immature Granulocytes Count 0.030 X10^3/uL (0.0-0.0); Mean Corp Hgb Conc 34.0 g/dL (32-36); Mean Corpuscular Volume 100.3 fL (81-99); Mean Platelet Vol. 10.4 fl (6.2-12.0); NRBC Flagged by Analyzer 0.3 % (0-5); Platelet Count 299 K/mm3 (150-450); RBC Distribution Width CV 13.1 % (11.6-14.6); RBC Distribution Width SD 48.5 fl (35.1-43.9); Red Blood Count 3.93 M/mm3 (4.2-5.4); White Blood Count 5.8 K/mm3 (4.4-11.0)
[2024-11-27 10:47] LABS: CRP < 3.00 mg/L (0.0-3.0)
== END | disposition home or self-care (01) ==
LOC: MTLAB 09:02
PROVIDERS: PCP Family Medicine; Referring Provider Ophthalmology; Visit Provider Ophthalmology
DX: R51.9 Headache, unspecified (principal)
CPT/HCPCS: 36415; 85025; 85652; 86140

== ENCOUNTER 2025-01-23 10:21 | Outpatient (CLI) | payer MEDICARE, BC, SELFPAY ==
[2025-01-23 10:28] VITALS: BP 105/65; PULSE 80; RESP 16; TEMP 36.1; O2SAT 97; BMI 21.2
== END 2025-01-23 23:59 | disposition home or self-care (01) ==
LOC: MEDOUTP 10:22
PROVIDERS: PCP Family Medicine; Referring Provider Family Medicine; Visit Provider Family Medicine
DX: M85.80 Other specified disorders of bone density and structure, unspecified site (principal)
CPT/HCPCS: 96372